=== PATIENT | male | born 1945 | race African-American/Black ===

== ENCOUNTER 2017-04-30 21:42 | Inpatient (IN) | payer MEDICARE, OTHER ==
[~2017-04-30] VITALS: Ht 167.6 cm; Wt 66.3 kg
[2017-04-30 23:45] VITALS: BP 109/56
[2017-05-01] VITALS (27 sets, daily range): BP systolic 92–155; BP diastolic 31–70
[2017-05-01 01:28] LABS: CREATININE 10.6 mg/dL (0.7-1.3); GFR 5.8; POTASSIUM 5.4 mmol/L (3.5-5.1)
[2017-05-01] MEDS ORDERED: ONDANSETRON PF 4 MG/2 ML VIAL. IV PRN (01:30)
[2017-05-01] MEDS ORDERED: SODIUM BICARBONATE VIAL 150 MEQ in IV STERILE WATER 1,000 ML IV SCH (01:30)
[2017-05-01] MEDS ORDERED: FUROSEMIDE 40 MG/4 ML VIAL. IVP ONE (01:30)
[2017-05-01 07:52] LABS: BASO # 0.1 x10^3/uL (0.0-0.2); BASO % 1 % (0-3); EOS % 3 % (0-3); HEMATOCRIT 25.9 % (39.0-53.0); HEMOGLOBIN 8.8 g/dL (13.0-17.5); LYMPH % 18 % (24-48); MEAN CORPUSCULAR HEMOGLOBIN 29 pg (25-35); MEAN CORPUSCULAR HGB CONC 34 g/dL (31-37); MEAN CORPUSCULAR VOLUME 87 fL (79-100); MONO % 9 % (0-9); NEUT % 68 % (31-73); PLATELET COUNT 165 x10^3/uL (140-400); RED BLOOD COUNT 2.98 x10^6/uL (4.30-5.70); RED CELL DISTRIBUTION WIDTH 15.5 % (11.5-14.5); WHITE BLOOD COUNT 5.7 x10^3/uL (4.0-11.0)
[2017-05-01] MEDS ORDERED: ACETAMINOPHEN 500 MG TABLET PO PRN (08:00)
[2017-05-01 08:18] LABS: ALBUMIN/GLOBULIN RATIO 0.6 (1.0-1.7); CALCIUM 8.5 mg/dL (8.5-10.1); CREATININE 9.4 mg/dL (0.7-1.3); GFR 6.7; POTASSIUM 4.7 mmol/L (3.5-5.1); TOTAL BILIRUBIN 0.4 mg/dL (0.2-1.0)
--- NOTE | 2017-05-01 10:50 | PDOC1 ---
History and Physical Date of Admission Date of Admission DATE: 05/01/17 TIME: 10:40 Identification/Chief Complaint Chief Complaint sent from [facility] of abN labs Problems: Source Source: Caregiver, Chart review, Patient History of Present Illness History of Present Illness 72 y./o AA male, not the best historian, transferred from [place] for abN labs , namely creat of 11 , low bicacrb and K 6,.1. Pt does not complain of any sxs , nobody else at bedside, possibly had some EKG changes? got temporizing measures for the hyperkalemia at [place], Renal called in, got bicarb gtt, etc, insulin, etc kayexylate and di have signif BM overnight, So far good UOP this AM 250cc AM shift (until 9Am), K 5.4, creat 10. Seems he answered yes to me if i asked him re HD if needed, Looking at records from [place], lots of medical hx including A fib, CAD, HTN, CHF, dyslipidemia, CKD< stroke, Lives at home alone initially he says, then mentions his helps him, Past Medical History Cardiovascular: AFIB, CAD, CHF, HTN, [place] Pulmonary: Bronchitis CENTRAL NERVOUS SYSTEM: CVA, Dementia Heme/Onc: Anemia NOS Past Surgical History Past Surgical History: Other (indwelling pacer) Family History Family History: Family History Unknown Social History ALCOHOL: none Drugs: None Current Medications Current Medications Current Medications Furosemide (Lasix) 40 mg 1X ONCE IVP Last administered on 05/01/17 02:19; Start 05/01/17 at 01:30; Stop 05/01/17 at 01:31; Status DC Ondansetron HCl (Zofran) 4 mg PRN Q6HRS PRN IV NAUSEA/VOMITING; Start 05/01/17 at 01:30 Morphine Sulfate 2 mg PRN Q2HR PRN IV PAIN; Start 05/01/17 at 01:30 Sodium Bicarbonate 150 meq/Sterile Water 1,150 ml @ 125 mls/hr Q9H12M IV Last administered on 05/01/17 02:28; Start 05/01/17 at 01:30 Acetaminophen/ Hydrocodone Bitart (Lortab 5/325) 1 tab PRN Q4HRS PRN PO PAIN; Start 05/01/17 at 08:00 Acetaminophen (Tylenol) 500 mg PRN Q6HRS PRN PO MILD PAIN / TEMP; Start at 08:00 Allergies Allergies: Coded Allergies: No Known Drug Allergies (Unverified , 05/01/17) ROS Review of System limited - very poor historian Physical Exam General: Alert, Oriented X3, Cooperative, No acute distress HEENT: Atraumatic, PERRLA Lungs: Normal air movement Heart: no thrills, no rubs, no gallops, no murmurs Cardiovascular: S1, S2 Breasts: Normal, Rt breast nml w/o mass, Lt breast nml w/o mass, Nipples normal Abdomen: Normal bowel sounds, Soft, No tenderness, No hepatosplenomegaly, No masses Male Genitals Exam: normal genitalia, normal prostate Extremities: No clubbing, No cyanosis, No edema, Normal pulses, No tenderness/ swelling Skin: No rashes, No breakdown, No significant lesion Neuro: Normal gait, Normal speech, Strength at 5/5 X4 ext, Normal tone, Sensation intact, Cranial nerves 3-12 NL, Reflexes 2+, Other (slow speech, takes long time to speak) Psych/Mental Status: Mental status NL, Mood NL Vitals Vitals Vital Signs Date Time Temp Pulse Resp B/P (MAP) Pulse Ox O2 Delivery O2 Flow Rate FiO2 05/01/17 10:00 62 22 125/59 (81) 98 Room Air 05/01/17 08:00 98.6 98.6 Labs Labs Laboratory Tests Test 05/01/17 01:10 05/01/17 07:46 Sodium Level 141 mmol/L (136-145) 143 mmol/L (136-145) Potassium Level 5.4 mmol/L (3.5-5.1) 4.7 mmol/L (3.5-5.1) Chloride Level 101 mmol/L (98-107) 101 mmol/L (98-107) Carbon Dioxide Level 26 mmol/L (21-32) 30 mmol/L (21-32) Anion Gap 14 (6-14) 12 (6-14) Blood Urea Nitrogen 194 mg/dL (8-26) 182 mg/dL (8-26) Creatinine 10.6 mg/dL (0.7-1.3) 9.4 mg/dL (0.7-1.3) Estimated GFR (Cockcroft-Gault) 5.8 6.7 Glucose Level 87 mg/dL (70-99) 90 mg/dL (70-99) Calcium Level 9.0 mg/dL (8.5-10.1) 8.5 mg/dL (8.5-10.1) White Blood Count 5.7 x10^3/uL (4.0-11.0) Red Blood Count 2.98 x10^6/uL (4.30-5.70) Hemoglobin 8.8 g/dL (13.0-17.5) Hematocrit 25.9 % (39.0-53.0) Mean Corpuscular Volume 87 fL (79-100) Mean Corpuscular Hemoglobin 29 pg (25-35) Mean Corpuscular Hemoglobin Concent 34 g/dL (31-37) Red Cell Distribution Width 15.5 % (11.5-14.5) Platelet Count 165 x10^3/uL (140-400) Neutrophils (%) (Auto) 68 % (31-73) Lymphocytes (%) (Auto) 18 % (24-48) Monocytes (%) (Auto) 9 % (0-9) Eosinophils (%) (Auto) 3 % (0-3) Basophils (%) (Auto) 1 % (0-3) Neutrophils # (Auto) 3.9 x10^3uL (1.8-7.7) Lymphocytes # (Auto) 1.0 x10^3/uL (1.0-4.8) Monocytes # (Auto) 0.5 x10^3/uL (0.0-1.1) Eosinophils # (Auto) 0.2 x10^3/uL (0.0-0.7) Basophils # (Auto) 0.1 x10^3/uL (0.0-0.2) BUN/Creatinine Ratio 19 (6-20) Total Bilirubin 0.4 mg/dL (0.2-1.0) Aspartate Amino Transf (AST/SGOT) 13 U/L (15-37) Alanine Aminotransferase (ALT/SGPT) 16 U/L (16-63) Alkaline Phosphatase 74 U/L (46-116) Total Protein 8.0 g/dL (6.4-8.2) Albumin 3.0 g/dL (3.4-5.0) Albumin/Globulin Ratio 0.6 (1.0-1.7) Laboratory Tests Test 05/01/17 01:10 05/01/17 07:46 Sodium Level 141 mmol/L (136-145) 143 mmol/L (136-145) Potassium Level 5.4 mmol/L (3.5-5.1) 4.7 mmol/L (3.5-5.1) Chloride Level 101 mmol/L (98-107) 101 mmol/L (98-107) Carbon Dioxide Level 26 mmol/L (21-32) 30 mmol/L (21-32) Anion Gap 14 (6-14) 12 (6-14) Blood Urea Nitrogen 194 mg/dL (8-26) 182 mg/dL (8-26) Creatinine 10.6 mg/dL (0.7-1.3) 9.4 mg/dL (0.7-1.3) Estimated GFR (Cockcroft-Gault) 5.8 6.7 Glucose Level 87 mg/dL (70-99) 90 mg/dL (70-99) Calcium Level 9.0 mg/dL (8.5-10.1) 8.5 mg/dL (8.5-10.1) White Blood Count 5.7 x10^3/uL (4.0-11.0) Red Blood Count 2.98 x10^6/uL (4.30-5.70) Hemoglobin 8.8 g/dL (13.0-17.5) Hematocrit 25.9 % (39.0-53.0) Mean Corpuscular Volume 87 fL (79-100) Mean Corpuscular Hemoglobin 29 pg (25-35) Mean Corpuscular Hemoglobin Concent 34 g/dL (31-37) Red Cell Distribution Width 15.5 % (11.5-14.5) Platelet Count 165 x10^3/uL (140-400) Neutrophils (%) (Auto) 68 % (31-73) Lymphocytes (%) (Auto) 18 % (24-48) Monocytes (%) (Auto) 9 % (0-9) Eosinophils (%) (Auto) 3 % (0-3) Basophils (%) (Auto) 1 % (0-3) Neutrophils # (Auto) 3.9 x10^3uL (1.8-7.7) Lymphocytes # (Auto) 1.0 x10^3/uL (1.0-4.8) Monocytes # (Auto) 0.5 x10^3/uL (0.0-1.1) Eosinophils # (Auto) 0.2 x10^3/uL (0.0-0.7) Basophils # (Auto) 0.1 x10^3/uL (0.0-0.2) BUN/Creatinine Ratio 19 (6-20) Total Bilirubin 0.4 mg/dL (0.2-1.0) Aspartate Amino Transf (AST/SGOT) 13 U/L (15-37) Alanine Aminotransferase (ALT/SGPT) 16 U/L (16-63) Alkaline Phosphatase 74 U/L (46-116) Total Protein 8.0 g/dL (6.4-8.2) Albumin 3.0 g/dL (3.4-5.0) Albumin/Globulin Ratio 0.6 (1.0-1.7) VTE Prophylaxis Ordered VTE Prophylaxis Devices: Yes VTE Pharmacological Prophylaxi: Yes Assessment/Plan Assessment/Plan 1. RINKU with CKD stage 5 2. AOCD 3. Metabolic acidosis with hyperkalemia 4 Hyperkalemia with EKG changes 5. Indwelling pace maker 6. Possible dementia, undiagnosed 7. 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
[2017-05-01 12:18] LABS: HEMATOCRIT 26.2 % (39.0-53.0); HEMOGLOBIN 8.7 g/dL (13.0-17.5); RED BLOOD COUNT 3.02 x10^6/uL (4.30-5.70); WHITE BLOOD COUNT 5.5 x10^3/uL (4.0-11.0)
[2017-05-01 12:33] LABS: CALCIUM 8.4 mg/dL (8.5-10.1); CREATININE 8.9 mg/dL (0.7-1.3); GFR 7.1; MAGNESIUM 2.8 mg/dL (1.8-2.4); PHOSPHORUS 6.7 mg/dL (2.6-4.7); POTASSIUM 4.4 mmol/L (3.5-5.1)
--- NOTE | 2017-05-01 12:40 | RAD ---
Renal ultrasound, 05/01/2017: History: Acute renal insufficiency The right kidney measures 9.0 cm in length while the left kidney measures 9.7 cm. There is mild renal cortical scarring. There is no evidence of hydronephrosis or a renal mass. The renal parenchymal echogenicity is within normal limits. A Kay catheter is present within the partially filled urinary bladder. IMPRESSION: 1. Mild renal cortical scarring. 2. No evidence of renal obstruction.
[2017-05-01] MEDS ORDERED: HEPARIN for IV BOLUS 10,000 UNIT/10 ML VIAL. ONE (13:21)
[2017-05-01] MEDS ORDERED: LIDOCAINE 1% / SOD BICARB 8.4% 20 ML VIAL. IJ ONE ×2 (13:22→13:30)
--- NOTE | 2017-05-01 13:27 | PDOC2 ---
CONSULT Date of Consult Date of Consult DATE: 05/01/17 TIME: 13:19 Reason for Consult Reason for Consult: RINKU AND HIGH K Referring Physician Referring Physician: SANTIAGO Identification/Chief Complaint Chief Complaint CONFUSED Problems: Source Source: Chart review History of Present Illness Reason for Visit: THIS IS A 72 YR OLD HERE FOR EVALUATION OF ABNORMAL LABS. WAS TAKEN TO [facility]. PT NOT COMPLAINING OF ANYTHING BUT CONFUSED AND NOT ABLE TO GIVEN ANY HX ALTHOUGH ALERT. LABS SHOWED RINKU WITH BUN OF ABOUT 200 AND CR OF ABOUT 11.0. K WAS ELEVATED TO ABOUT 7.0. DISCUSSED THE CASE WITH THE ER PHYSICIAN THERE AND SUGGESTED TEMPORIZING MEASURES FOR HIS K TO INCLUDE D50 AND INSULIN ALONG WITH CALCIUM. ALSO SUGGESTED PLACING SANCHEZ AND STARTING A HCO3 GTT AND THEN TRANSFER TO [facility]. HERE K WAS DOWN TO 6.1 AND HE CONTINUED TO REMAIN NON OLIGURIC. UA FROM [facility] POS FOR UTI BUT NO PROTEIN AND SP GR IS 1.010. APPARENTLY A YEAR AGO CR IN THE 1.5-1.8 RANGE PER ER DOCTOR AT [facility] Past Medical History Cardiovascular: AFIB, CAD, CHF, HTN, [place] Pulmonary: Bronchitis CENTRAL NERVOUS SYSTEM: CVA, Dementia Heme/Onc: Anemia NOS Renal/: Chronic renal insuff Past Surgical History Past Surgical History: Other (indwelling pacer) Family History Family History: Family History Unknown Social History ALCOHOL: none Drugs: None Current Medications Current Medications Current Medications Furosemide (Lasix) 40 mg 1X ONCE IVP Last administered on 05/01/17 02:19; Start 05/01/17 at 01:30; Stop 05/01/17 at 01:31; Status DC Ondansetron HCl (Zofran) 4 mg PRN Q6HRS PRN IV NAUSEA/VOMITING; Start 05/01/17 at 01:30 Morphine Sulfate 2 mg PRN Q2HR PRN IV PAIN; Start 05/01/17 at 01:30 Sodium Bicarbonate 150 meq/Sterile Water 1,150 ml @ 125 mls/hr Q9H12M IV Last administered on 05/01/17 02:28; Start 05/01/17 at 01:30 Acetaminophen/ Hydrocodone Bitart (Lortab 5/325) 1 tab PRN Q4HRS PRN PO PAIN; Start 05/01/17 at 08:00 Acetaminophen (Tylenol) 500 mg PRN Q6HRS PRN PO MILD PAIN / TEMP; Start at 08:00 Allergies Allergies: Coded Allergies: No Known Drug Allergies (Unverified , 05/01/17) ROS Review of System UNABLE TO OBTAIN Physical Exam General: Alert, Cooperative HEENT: Atraumatic, PERRLA, Other (DRY MUCOSA) Lungs: Clear to auscultation, Normal air movement Heart: Regular rate Abdomen: Soft, No tenderness Extremities: No clubbing, No edema Skin: No rashes, No significant lesion Neuro: Other (CONFUSED) MUSCULOSKELETAL: No joint tenderness, No deformity, No swelling, Other ( DIFFUSE ATROPHY) Vitals VITALS Vital Signs Date Time Temp Pulse Resp B/P (MAP) Pulse Ox O2 Delivery O2 Flow Rate FiO2 05/01/17 13:00 98.0 61 20 115/31 (59) 97 Room Air 98.0 Labs Labs Laboratory Tests Test 05/01/17 01:10 05/01/17 07:46 05/01/17 12:05 Sodium Level 141 mmol/L (136-145) 143 mmol/L (136-145) 142 mmol/L (136-145) Potassium Level 5.4 mmol/L (3.5-5.1) 4.7 mmol/L (3.5-5.1) 4.4 mmol/L (3.5-5.1) Chloride Level 101 mmol/L (98-107) 101 mmol/L (98-107) 100 mmol/L (98-107) Carbon Dioxide Level 26 mmol/L (21-32) 30 mmol/L (21-32) 34 mmol/L (21-32) Anion Gap 14 (6-14) 12 (6-14) 8 (6-14) Blood Urea Nitrogen 194 mg/dL (8-26) 182 mg/dL (8-26) 180 mg/dL (8-26) Creatinine 10.6 mg/dL (0.7-1.3) 9.4 mg/dL (0.7-1.3) 8.9 mg/dL (0.7-1.3) Estimated GFR (Cockcroft-Gault) 5.8 6.7 7.1 Glucose Level 87 mg/dL (70-99) 90 mg/dL (70-99) 141 mg/dL (70-99) Calcium Level 9.0 mg/dL (8.5-10.1) 8.5 mg/dL (8.5-10.1) 8.4 mg/dL (8.5-10.1) White Blood Count 5.7 x10^3/uL (4.0-11.0) 5.5 x10^3/uL (4.0-11.0) Red Blood Count 2.98 x10^6/uL (4.30-5.70) 3.02 x10^6/uL (4.30-5.70) Hemoglobin 8.8 g/dL (13.0-17.5) 8.7 g/dL (13.0-17.5) Hematocrit 25.9 % (39.0-53.0) 26.2 % (39.0-53.0) Mean Corpuscular Volume 87 fL (79-100) 87 fL (79-100) Mean Corpuscular Hemoglobin 29 pg (25-35) 29 pg (25-35) Mean Corpuscular Hemoglobin Concent 34 g/dL (31-37) 33 g/dL (31-37) Red Cell Distribution Width 15.5 % (11.5-14.5) 15.0 % (11.5-14.5) Platelet Count 165 x10^3/uL (140-400) 157 x10^3/uL (140-400) Neutrophils (%) (Auto) 68 % (31-73) Lymphocytes (%) (Auto) 18 % (24-48) Monocytes (%) (Auto) 9 % (0-9) Eosinophils (%) (Auto) 3 % (0-3) Basophils (%) (Auto) 1 % (0-3) Neutrophils # (Auto) 3.9 x10^3uL (1.8-7.7) Lymphocytes # (Auto) 1.0 x10^3/uL (1.0-4.8) Monocytes # (Auto) 0.5 x10^3/uL (0.0-1.1) Eosinophils # (Auto) 0.2 x10^3/uL (0.0-0.7) Basophils # (Auto) 0.1 x10^3/uL (0.0-0.2) BUN/Creatinine Ratio 19 (6-20) Total Bilirubin 0.4 mg/dL (0.2-1.0) Aspartate Amino Transf (AST/SGOT) 13 U/L (15-37) Alanine Aminotransferase (ALT/SGPT) 16 U/L (16-63) Alkaline Phosphatase 74 U/L (46-116) Total Protein 8.0 g/dL (6.4-8.2) Albumin 3.0 g/dL (3.4-5.0) Albumin/Globulin Ratio 0.6 (1.0-1.7) Phosphorus Level 6.7 mg/dL (2.6-4.7) Magnesium Level 2.8 mg/dL (1.8-2.4) Thyroid Stimulating Hormone (TSH) 0.665 uIU/mL (0.358-3.74) Laboratory Tests Test 05/01/17 01:10 05/01/17 07:46 05/01/17 12:05 Sodium Level 141 mmol/L (136-145) 143 mmol/L (136-145) 142 mmol/L (136-145) Potassium Level 5.4 mmol/L (3.5-5.1) 4.7 mmol/L (3.5-5.1) 4.4 mmol/L (3.5-5.1) Chloride Level 101 mmol/L (98-107) 101 mmol/L (98-107) 100 mmol/L (98-107) Carbon Dioxide Level 26 mmol/L (21-32) 30 mmol/L (21-32) 34 mmol/L (21-32) Anion Gap 14 (6-14) 12 (6-14) 8 (6-14) Blood Urea Nitrogen 194 mg/dL (8-26) 182 mg/dL (8-26) 180 mg/dL (8-26) Creatinine 10.6 mg/dL (0.7-1.3) 9.4 mg/dL (0.7-1.3) 8.9 mg/dL (0.7-1.3) Estimated GFR (Cockcroft-Gault) 5.8 6.7 7.1 Glucose Level 87 mg/dL (70-99) 90 mg/dL (70-99) 141 mg/dL (70-99) Calcium Level 9.0 mg/dL (8.5-10.1) 8.5 mg/dL (8.5-10.1) 8.4 mg/dL (8.5-10.1) White Blood Count 5.7 x10^3/uL (4.0-11.0) 5.5 x10^3/uL (4.0-11.0) Red Blood Count 2.98 x10^6/uL (4.30-5.70) 3.02 x10^6/uL (4.30-5.70) Hemoglobin 8.8 g/dL (13.0-17.5) 8.7 g/dL (13.0-17.5) Hematocrit 25.9 % (39.0-53.0) 26.2 % (39.0-53.0) Mean Corpuscular Volume 87 fL (79-100) 87 fL (79-100) Mean Corpuscular Hemoglobin 29 pg (25-35) 29 pg (25-35) Mean Corpuscular Hemoglobin Concent 34 g/dL (31-37) 33 g/dL (31-37) Red Cell Distribution Width 15.5 % (11.5-14.5) 15.0 % (11.5-14.5) Platelet Count 165 x10^3/uL (140-400) 157 x10^3/uL (140-400) Neutrophils (%) (Auto) 68 % (31-73) Lymphocytes (%) (Auto) 18 % (24-48) Monocytes (%) (Auto) 9 % (0-9) Eosinophils (%) (Auto) 3 % (0-3) Basophils (%) (Auto) 1 % (0-3) Neutrophils # (Auto) 3.9 x10^3uL (1.8-7.7) Lymphocytes # (Auto) 1.0 x10^3/uL (1.0-4.8) Monocytes # (Auto) 0.5 x10^3/uL (0.0-1.1) Eosinophils # (Auto) 0.2 x10^3/uL (0.0-0.7) Basophils # (Auto) 0.1 x10^3/uL (0.0-0.2) BUN/Creatinine Ratio 19 (6-20) Total Bilirubin 0.4 mg/dL (0.2-1.0) Aspartate Amino Transf (AST/SGOT) 13 U/L (15-37) Alanine Aminotransferase (ALT/SGPT) 16 U/L (16-63) Alkaline Phosphatase 74 U/L (46-116) Total Protein 8.0 g/dL (6.4-8.2) Albumin 3.0 g/dL (3.4-5.0) Albumin/Globulin Ratio 0.6 (1.0-1.7) Phosphorus Level 6.7 mg/dL (2.6-4.7) Magnesium Level 2.8 mg/dL (1.8-2.4) Thyroid Stimulating Hormone (TSH) 0.665 uIU/mL (0.358-3.74) Assessment/Plan Assessment/Plan IMP RINKU-NON OLIGURIC PROB UREMIA DEHYDRATION PLAN RENAL SONO SANCHEZ PLACED CONT WITH IVF'S WILL HAVE IR PLACE TEMP HD CATHETER WILL START HD WITH LOW QB AND NO UF ATTEMPTED TO CONTACT NEXT OF KIN OR WITH NO ONCE ANSWERING THE PHONE NO EVIDENCE OF ANY NEPHRITIS-NO HTN AND NO PROTEIN IN THE URINE ANTIBIOTICS FOR UTI CHANGE IVF'S TO CHULA LOERA MD May 01, 2017 13:27
[2017-05-01] MEDS: IV NORMAL SALINE 1000ML BAG 1,000 ML IV SCH (14:34)
--- NOTE | 2017-05-01 14:36 | RAD ---
Portable chest, 05/01/2017: History: Check dialysis catheter placement No previous chest radiographs are available at this time for comparison purposes. A left-sided transvenous pacemaker is in place with 3 leads extending into the heart. A right jugular dialysis type catheter extends into the superior vena cava. The left ventricle is mildly prominent. The pulmonary vascularity is normal. No pulmonary infiltrate are seen. There is no evidence of pleural fluid or pneumothorax. A right shoulder prosthesis is in place. IMPRESSION: 1. The right jugular dialysis type catheter extends into the superior vena cava. 2. No acute cardiopulmonary abnormality is detected.
[2017-05-01] MEDS ORDERED: IV NORMAL SALINE 1000ML BAG 1,000 ML IV PRN ×2 (18:50)
[2017-05-01] MEDS ORDERED: 0.9 % SODIUM CHLORIDE 10 ML DISP.SYRIN. IV PRN ×2 (19:00)
[2017-05-01] MEDS ORDERED: DIALYSIS PATIENT. MC PRN ×2 (19:00)
[2017-05-01] MEDS ORDERED: LIDO700A39 TP (20:32)
[2017-05-01] MEDS ORDERED: LISI-338 PO (20:32)
[2017-05-01] MEDS ORDERED: APIX5TAB PO (20:32)
[2017-05-01] MEDS ORDERED: TRAM50TA PO (20:34)
[2017-05-01] MEDS ORDERED: SOTA80TA48 PO (20:34)
[2017-05-01] MEDS ORDERED: CARV12.52 PO (20:36)
[2017-05-01] MEDS ORDERED: TORS20TA2 PO (20:37)
[2017-05-01] MEDS ORDERED: ATOR20TA58 PO (20:38)
[2017-05-01] MEDS ORDERED: TIZA4TAB PO (20:39)
[2017-05-01] MEDS ORDERED: SPIR25TA3 PO (20:39)
[2017-05-01] MEDS: MORPHINE SULFATE 2 MG/ML DISP.SYRIN. IV PRN (22:25)
[2017-05-02] VITALS (15 sets, daily range): BP systolic 99–121; BP diastolic 47–69
--- NOTE | 2017-05-02 00:07 | ACF ---
Admission Forms Criteria RENAL FAILURE, CHRONIC Clinical Indications for Admission to Inpatient Care (Place 'X' for any and all applicable criteria): Admission is indicated for ANY ONE of the following (1)(2)(3)(4)(5): [X]I. Inpatient admission required rather than observation care (Use Renal Failure, Chronic: Observation Care Criteria as appropriate) because of ANY ONE of the following: [ ]a) Volume overload or uremic symptoms (eg, clinically significant pulmonary edema, hypertension, pericarditis, acidosis) too severe for, or not responsive (eg, for over 24 hours) to emergency department or observation care dialysis or treatment regimen (11) [ ]b) Hemodynamic instability that is severe or persistent [ ]c) Respiratory distress that is severe or persistent (11) [X]d) Clinically significant electrolyte abnormality that requires inpatient care (eg,hyperkalemia with severe ECG findings)[B] [ ]e) Supplement O2 or respiratory therapy for over 24hrs that is performable only in acute inpatient setting [ ]f) Continuous IV infusion of anticoagulation, platelet inhibitor, vasoactive, or Antiarrhythmic medication (15), [ ]g) Pulmonary artery catheter monitoring [ ]h) Temporary pacemaker placement [ ]i) Emergent pericardiocentesis [ ]j) Other condition, treatment or monitoring requiring inpatient admission [ ]II. Unexplained syncope [A] [ ]III. Recurrent seizures [ ]IV. Severe infections not treatable in outpatient setting (eg, peritonitis)(9 ) [ ]V. Cardiac arrhythmias of immediate concern [ ]. Encephalopathy [ ]VII.Bleeding abnormalities (eg, platelet dysfunction) with active (eg, gastrointestinal) bleeding Extended stay beyond goal length of stay may be needed for (3)(4)(35)(36): [ ]a) Continuing uremic complications [ ]b) Comorbidities or complications The original [facility] content created by [employer] has been revised. The portions of the content which have been revised are identified through the use of italic text or in bold, and [facility] has neither reviewed nor approved the modified material. All other unmodified content is copyright [facility]. Please see references footnoted in the original [facility] edition 2016 Admission Criteria Met?: Pending TARIQ LOZANO May 02, 2017 00:07 TIAGO HENDERSON MD May 05, 2017 08:48
[2017-05-02] MEDS: IV NORMAL SALINE 1000ML BAG 1,000 ML IV SCH ×3 (00:56→20:00)
[2017-05-02] MEDS: MORPHINE SULFATE 2 MG/ML DISP.SYRIN. IV PRN (00:56)
[2017-05-02 03:51] LABS: CALCIUM 8.4 mg/dL (8.5-10.1); CREATININE 4.1 mg/dL (0.7-1.3); GFR 17.4; PHOSPHORUS 4.3 mg/dL (2.6-4.7); POTASSIUM 4.1 mmol/L (3.5-5.1)
[2017-05-02 04:03] LABS: BILIRUBIN,URINE NEGATIVE (NEG); GLUCOSE,URINE NEGATIVE (NEG); NITRITE,URINE NEGATIVE (NEG); PROTEIN,URINE 100 mg/dL (NEG-TRACE); UROBILINOGEN,URINE 0.2 mg/dL (0.2 mg/dL)
[2017-05-02 04:09] LABS: BACTERIA,URINE 0 /HPF (0-FEW); RBC,URINE TNTC /HPF (0-2); SQUAMOUS EPITHELIAL CELL,UR OCC /LPF
[2017-05-02] MEDS: SOTALOL 80 MG TABLET. PO SCH (09:00)
[2017-05-02] MEDS: CARVEDILOL 12.5 MG TABLET. PO SCH (09:00)
--- NOTE | 2017-05-02 09:27 | PDOC ---
Renal-Progress Notes Subjective Notes Notes FEELING A LITTLE BIT BETTER, LESS CONFUSED History of Present Illness Hx of present illness STABLE Vitals Vitals Vital Signs Date Time Temp Pulse Resp B/P (MAP) Pulse Ox O2 Delivery O2 Flow Rate FiO2 05/02/17 09:00 60 13 120/69 (86) 100 Room Air 05/02/17 08:00 98.6 98.6 Weight Weight [ ] I.O. Intake and Output Intake and Output 05/02/17 07:00 Intake Total 2778 ml Output Total 1475 ml Balance 1303 ml Intake Oral 586 ml IV Total 2192 ml Output Urine Total 1475 ml Labs Labs Laboratory Tests Test 05/01/17 12:05 05/02/17 03:04 05/02/17 03:20 White Blood Count 5.5 x10^3/uL (4.0-11.0) Red Blood Count 3.02 x10^6/uL (4.30-5.70) Hemoglobin 8.7 g/dL (13.0-17.5) Hematocrit 26.2 % (39.0-53.0) Mean Corpuscular Volume 87 fL (79-100) Mean Corpuscular Hemoglobin 29 pg (25-35) Mean Corpuscular Hemoglobin Concent 33 g/dL (31-37) Red Cell Distribution Width 15.0 % (11.5-14.5) Platelet Count 157 x10^3/uL (140-400) Erythrocyte Sedimentation Rate 88 (0-15) Sodium Level 142 mmol/L (136-145) 140 mmol/L (136-145) Potassium Level 4.4 mmol/L (3.5-5.1) 4.1 mmol/L (3.5-5.1) Chloride Level 100 mmol/L (98-107) 103 mmol/L (98-107) Carbon Dioxide Level 34 mmol/L (21-32) 29 mmol/L (21-32) Anion Gap 8 (6-14) 8 (6-14) Blood Urea Nitrogen 180 mg/dL (8-26) 59 mg/dL (8-26) Creatinine 8.9 mg/dL (0.7-1.3) 4.1 mg/dL (0.7-1.3) Estimated GFR (Cockcroft-Gault) 7.1 17.4 Glucose Level 141 mg/dL (70-99) 98 mg/dL (70-99) Calcium Level 8.4 mg/dL (8.5-10.1) 8.4 mg/dL (8.5-10.1) Phosphorus Level 6.7 mg/dL (2.6-4.7) 4.3 mg/dL (2.6-4.7) Magnesium Level 2.8 mg/dL (1.8-2.4) Thyroid Stimulating Hormone (TSH) 0.665 uIU/mL (0.358-3.74) Urine Collection Type Unknown Urine Color Yellow Urine Clarity Clear Urine pH 6.0 Urine Specific [place] 1.010 Urine Protein 100 mg/dL (NEG-TRACE) Urine Glucose (UA) Negative mg/dL (NEG) Urine Ketones (Stick) Negative mg/dL (NEG) Urine Blood Large (NEG) Urine Nitrite Negative (NEG) Urine Bilirubin Negative (NEG) Urine Urobilinogen Dipstick 0.2 mg/dL (0.2 mg/dL) Urine Leukocyte Esterase Moderate (NEG) Urine RBC Tntc /HPF (0-2) Urine WBC 11-20 /HPF (0-4) Urine Squamous Epithelial Cells Occ /LPF Urine Bacteria 0 /HPF (0-FEW) Urine Mucus Slight /LPF Uric Acid 5.0 mg/dL (3.5-7.2) Creatine Kinase 95 U/L (39-308) Review of Systems Constitutional: yes: weakness, alert Ears/Nose/Throat: Yes: no symptom reported Eyes: Yes: no symptom reported Pulmonary: Yes no symptom reported Cardiovascular: Yes no symptom reported Gastrointestional: Yes: nausea Musculoskeletal: Yes: muscle stiffness Skin: Yes no symptom reported Physical Exam General Appearance: no apparent distress Skin: warm Respiratory: bilateral CTA Heart: S1S2 Abdomen: soft, bowel sounds present Extremities: pulses present Neurology: alert Assessment Assessment IMP RINKU-MUCH IMPROVED AND NON OLIGURIC DEMENTIA PROBABLE MILD UREMIA DEHYDRATION UTI PLAN RENAL SONO IS NEG BELIEVE RINKU DUE TO SEVERE DEHYDRATION NO EVIDENCE OF NEPHRITIS ANTIBIOTICS HD TODAY NO UF WILL PLAN FOR NO HD OVER THE WEEKEND SUSPECT HE WILL RECOVER LABS IN AM CHULA EARLY MD May 02, 2017 09:27
[2017-05-02] MEDS ORDERED: FUROSEMIDE 20 MG/2 ML VIAL. IVP ONE (09:30)
[2017-05-02] MEDS ORDERED: methylPREDNISolone SOD SUCC PF 125 MG/2 ML VIAL. IV ONE (09:30)
--- NOTE | 2017-05-02 09:33 | RAD ---
Portable chest, 05/02/2017: History: Respiratory distress Comparison is made to yesterday's study. A right jugular dialysis type catheter extends into the superior vena cava. A left-sided transvenous pacemaker is again noted. The heart size is unchanged. The pulmonary vascularity is normal. No pulmonary infiltrates are seen. There is no evidence of pleural fluid or pneumothorax. IMPRESSION: No acute cardiopulmonary abnormality is detected.
--- NOTE | 2017-05-02 10:14 | PDOC ---
PROGRESS NOTES Chief Complaint Chief Complaint 1. RINKU with CKD stage 5 2. AOCD 3. Metabolic acidosis with hyperkalemia better 4 Hyperkalemia with EKG changes resolved 5. Indwelling pace maker 6. Possible dementia, undiagnosed 7. HTN, CAD, CHF, Dsylipidemia, atrial fib, chronic stable History of Present Illness History of Present Illness Seen in ICU NUmbers better! CReat down to 4 from 11 Good UO VS good NO complaints, though has some element of cognitive impairment LAbs: K 4.1, NA 140 HGb 8.8, WBC PLatelets 157 ESR 88 PLAN: Ok to t.o ICU Will need SNU SW consult PT/OT Dw pt Renal panel again tawnya Avoid nephrotoxins HOld aldactone, lisinopril, torsemide home meds Vitals Vitals Vital Signs Date Time Temp Pulse Resp B/P (MAP) Pulse Ox O2 Delivery O2 Flow Rate FiO2 05/02/17 09:00 60 13 120/69 (86) 100 Room Air 05/02/17 08:00 98.6 98.6 Physical Exam General: Alert, Cooperative Heart: Regular rate Abdomen: Soft, No tenderness Extremities: No clubbing, No edema Skin: No rashes, No significant lesion Labs LABS Laboratory Tests Test 05/01/17 12:05 05/02/17 03:04 05/02/17 03:20 White Blood Count 5.5 x10^3/uL (4.0-11.0) Red Blood Count 3.02 x10^6/uL (4.30-5.70) Hemoglobin 8.7 g/dL (13.0-17.5) Hematocrit 26.2 % (39.0-53.0) Mean Corpuscular Volume 87 fL (79-100) Mean Corpuscular Hemoglobin 29 pg (25-35) Mean Corpuscular Hemoglobin Concent 33 g/dL (31-37) Red Cell Distribution Width 15.0 % (11.5-14.5) Platelet Count 157 x10^3/uL (140-400) Erythrocyte Sedimentation Rate 88 (0-15) Sodium Level 142 mmol/L (136-145) 140 mmol/L (136-145) Potassium Level 4.4 mmol/L (3.5-5.1) 4.1 mmol/L (3.5-5.1) Chloride Level 100 mmol/L (98-107) 103 mmol/L (98-107) Carbon Dioxide Level 34 mmol/L (21-32) 29 mmol/L (21-32) Anion Gap 8 (6-14) 8 (6-14) Blood Urea Nitrogen 180 mg/dL (8-26) 59 mg/dL (8-26) Creatinine 8.9 mg/dL (0.7-1.3) 4.1 mg/dL (0.7-1.3) Estimated GFR (Cockcroft-Gault) 7.1 17.4 Glucose Level 141 mg/dL (70-99) 98 mg/dL (70-99) Calcium Level 8.4 mg/dL (8.5-10.1) 8.4 mg/dL (8.5-10.1) Phosphorus Level 6.7 mg/dL (2.6-4.7) 4.3 mg/dL (2.6-4.7) Magnesium Level 2.8 mg/dL (1.8-2.4) Thyroid Stimulating Hormone (TSH) 0.665 uIU/mL (0.358-3.74) Urine Collection Type Unknown Urine Color Yellow Urine Clarity Clear Urine pH 6.0 Urine Specific Bledsoe 1.010 Urine Protein 100 mg/dL (NEG-TRACE) Urine Glucose (UA) Negative mg/dL (NEG) Urine Ketones (Stick) Negative mg/dL (NEG) Urine Blood Large (NEG) Urine Nitrite Negative (NEG) Urine Bilirubin Negative (NEG) Urine Urobilinogen Dipstick 0.2 mg/dL (0.2 mg/dL) Urine Leukocyte Esterase Moderate (NEG) Urine RBC Tntc /HPF (0-2) Urine WBC 11-20 /HPF (0-4) Urine Squamous Epithelial Cells Occ /LPF Urine Bacteria 0 /HPF (0-FEW) Urine Mucus Slight /LPF Uric Acid 5.0 mg/dL (3.5-7.2) Creatine Kinase 95 U/L (39-308) Review of Systems Review of Systems denies 14 pt reviewed Comment Review of Relevant I have reviewed the following items maranda (where applicable) has been applied. Labs Laboratory Tests Test 05/01/17 00:18 05/01/17 01:10 05/01/17 07:46 05/01/17 12:05 Nasal Screen MRSA (PCR) Negative (Negative) Sodium Level 141 mmol/L (136-145) 143 mmol/L (136-145) 142 mmol/L (136-145) Potassium Level 5.4 mmol/L (3.5-5.1) 4.7 mmol/L (3.5-5.1) 4.4 mmol/L (3.5-5.1) Chloride Level 101 mmol/L (98-107) 101 mmol/L (98-107) 100 mmol/L (98-107) Carbon Dioxide Level 26 mmol/L (21-32) 30 mmol/L (21-32) 34 mmol/L (21-32) Anion Gap 14 (6-14) 12 (6-14) 8 (6-14) Blood Urea Nitrogen 194 mg/dL (8-26) 182 mg/dL (8-26) 180 mg/dL (8-26) Creatinine 10.6 mg/dL (0.7-1.3) 9.4 mg/dL (0.7-1.3) 8.9 mg/dL (0.7-1.3) Estimated GFR (Cockcroft-Gault) 5.8 6.7 7.1 Glucose Level 87 mg/dL (70-99) 90 mg/dL (70-99) 141 mg/dL (70-99) Calcium Level 9.0 mg/dL (8.5-10.1) 8.5 mg/dL (8.5-10.1) 8.4 mg/dL (8.5-10.1) White Blood Count 5.7 x10^3/uL (4.0-11.0) 5.5 x10^3/uL (4.0-11.0) Red Blood Count 2.98 x10^6/uL (4.30-5.70) 3.02 x10^6/uL (4.30-5.70) Hemoglobin 8.8 g/dL (13.0-17.5) 8.7 g/dL (13.0-17.5) Hematocrit 25.9 % (39.0-53.0) 26.2 % (39.0-53.0) Mean Corpuscular Volume 87 fL (79-100) 87 fL (79-100) Mean Corpuscular Hemoglobin 29 pg (25-35) 29 pg (25-35) Mean Corpuscular Hemoglobin Concent 34 g/dL (31-37) 33 g/dL (31-37) Red Cell Distribution Width 15.5 % (11.5-14.5) 15.0 % (11.5-14.5) Platelet Count 165 x10^3/uL (140-400) 157 x10^3/uL (140-400) Neutrophils (%) (Auto) 68 % (31-73) Lymphocytes (%) (Auto) 18 % (24-48) Monocytes (%) (Auto) 9 % (0-9) Eosinophils (%) (Auto) 3 % (0-3) Basophils (%) (Auto) 1 % (0-3) Neutrophils # (Auto) 3.9 x10^3uL (1.8-7.7) Lymphocytes # (Auto) 1.0 x10^3/uL (1.0-4.8) Monocytes # (Auto) 0.5 x10^3/uL (0.0-1.1) Eosinophils # (Auto) 0.2 x10^3/uL (0.0-0.7) Basophils # (Auto) 0.1 x10^3/uL (0.0-0.2) BUN/Creatinine Ratio 19 (6-20) Total Bilirubin 0.4 mg/dL (0.2-1.0) Aspartate Amino Transf (AST/SGOT) 13 U/L (15-37) Alanine Aminotransferase (ALT/SGPT) 16 U/L (16-63) Alkaline Phosphatase 74 U/L (46-116) Total Protein 8.0 g/dL (6.4-8.2) Albumin 3.0 g/dL (3.4-5.0) Albumin/Globulin Ratio 0.6 (1.0-1.7) Erythrocyte Sedimentation Rate 88 (0-15) Phosphorus Level 6.7 mg/dL (2.6-4.7) Magnesium Level 2.8 mg/dL (1.8-2.4) Thyroid Stimulating Hormone (TSH) 0.665 uIU/mL (0.358-3.74) Test 05/02/17 03:04 05/02/17 03:20 Urine Collection Type Unknown Urine Color Yellow Urine Clarity Clear Urine pH 6.0 Urine Specific Bledsoe 1.010 Urine Protein 100 mg/dL (NEG-TRACE) Urine Glucose (UA) Negative mg/dL (NEG) Urine Ketones (Stick) Negative mg/dL (NEG) Urine Blood Large (NEG) Urine Nitrite Negative (NEG) Urine Bilirubin Negative (NEG) Urine Urobilinogen Dipstick 0.2 mg/dL (0.2 mg/dL) Urine Leukocyte Esterase Moderate (NEG) Urine RBC Tntc /HPF (0-2) Urine WBC 11-20 /HPF (0-4) Urine Squamous Epithelial Cells Occ /LPF Urine Bacteria 0 /HPF (0-FEW) Urine Mucus Slight /LPF Sodium Level 140 mmol/L (136-145) Potassium Level 4.1 mmol/L (3.5-5.1) Chloride Level 103 mmol/L (98-107) Carbon Dioxide Level 29 mmol/L (21-32) Anion Gap 8 (6-14) Blood Urea Nitrogen 59 mg/dL (8-26) Creatinine 4.1 mg/dL (0.7-1.3) Estimated GFR (Cockcroft-Gault) 17.4 Glucose Level 98 mg/dL (70-99) Uric Acid 5.0 mg/dL (3.5-7.2) Calcium Level 8.4 mg/dL (8.5-10.1) Phosphorus Level 4.3 mg/dL (2.6-4.7) Creatine Kinase 95 U/L (39-308) Laboratory Tests Test 05/01/17 12:05 05/02/17 03:04 05/02/17 03:20 White Blood Count 5.5 x10^3/uL (4.0-11.0) Red Blood Count 3.02 x10^6/uL (4.30-5.70) Hemoglobin 8.7 g/dL (13.0-17.5) Hematocrit 26.2 % (39.0-53.0) Mean Corpuscular Volume 87 fL (79-100) Mean Corpuscular Hemoglobin 29 pg (25-35) Mean Corpuscular Hemoglobin Concent 33 g/dL (31-37) Red Cell Distribution Width 15.0 % (11.5-14.5) Platelet Count 157 x10^3/uL (140-400) Erythrocyte Sedimentation Rate 88 (0-15) Sodium Level 142 mmol/L (136-145) 140 mmol/L (136-145) Potassium Level 4.4 mmol/L (3.5-5.1) 4.1 mmol/L (3.5-5.1) Chloride Level 100 mmol/L (98-107) 103 mmol/L (98-107) Carbon Dioxide Level 34 mmol/L (21-32) 29 mmol/L (21-32) Anion Gap 8 (6-14) 8 (6-14) Blood Urea Nitrogen 180 mg/dL (8-26) 59 mg/dL (8-26) Creatinine 8.9 mg/dL (0.7-1.3) 4.1 mg/dL (0.7-1.3) Estimated GFR (Cockcroft-Gault) 7.1 17.4 Glucose Level 141 mg/dL (70-99) 98 mg/dL (70-99) Calcium Level 8.4 mg/dL (8.5-10.1) 8.4 mg/dL (8.5-10.1) Phosphorus Level 6.7 mg/dL (2.6-4.7) 4.3 mg/dL (2.6-4.7) Magnesium Level 2.8 mg/dL (1.8-2.4) Thyroid Stimulating Hormone (TSH) 0.665 uIU/mL (0.358-3.74) Urine Collection Type Unknown Urine Color Yellow Urine Clarity Clear Urine pH 6.0 Urine Specific Bledsoe 1.010 Urine Protein 100 mg/dL (NEG-TRACE) Urine Glucose (UA) Negative mg/dL (NEG) Urine Ketones (Stick) Negative mg/dL (NEG) Urine Blood Large (NEG) Urine Nitrite Negative (NEG) Urine Bilirubin Negative (NEG) Urine Urobilinogen Dipstick 0.2 mg/dL (0.2 mg/dL) Urine Leukocyte Esterase Moderate (NEG) Urine RBC Tntc /HPF (0-2) Urine WBC 11-20 /HPF (0-4) Urine Squamous Epithelial Cells Occ /LPF Urine Bacteria 0 /HPF (0-FEW) Urine Mucus Slight /LPF Uric Acid 5.0 mg/dL (3.5-7.2) Creatine Kinase 95 U/L (39-308) Medications Current Medications Furosemide (Lasix) 40 mg 1X ONCE IVP Last administered on 05/01/17t 02:19; Start 05/01/17 at 01:30; Stop 05/01/17 at 01:31; Status DC Ondansetron HCl (Zofran) 4 mg PRN Q6HRS PRN IV NAUSEA/VOMITING; Start 05/01/17 at 01:30 Morphine Sulfate 2 mg PRN Q2HR PRN IV PAIN Last administered on 05/02/17 00:56 ; Start 05/01/17 at 01:30 Sodium Bicarbonate 150 meq/Sterile Water 1,150 ml @ 125 mls/hr Q9H12M IV Last administered on 05/01/17 02:28; Start 05/01/17 at 01:30; Stop 05/01/17 at 13:29 ; Status DC Acetaminophen/ Hydrocodone Bitart (Lortab 5/325) 1 tab PRN Q4HRS PRN PO PAIN; Start 05/01/17 at 08:00 Acetaminophen (Tylenol) 500 mg PRN Q6HRS PRN PO MILD PAIN / TEMP; Start at 08:00 Heparin Sodium (Porcine) (Heparin Sodium) 10,000 unit STK-MED ONCE .ROUTE ; Start 05/01/17 at 13:21; Stop 05/01/17 at 13:22; Status DC Lidocaine/Sodium Bicarbonate (Buffered Lidocaine 1%) 20 ml STK-MED ONCE IJ ; Start 05/01/17 at 13:22; Stop 05/01/17 at 13:23; Status DC Heparin Sodium/ Sodium Chloride 500 ml @ As Directed STK-MED ONCE .ROUTE ; Start 05/01/17 at 13:22; Stop 05/01/17 at 13:23; Status DC Lidocaine/Sodium Bicarbonate (Buffered Lidocaine 1%) 3 ml 1X ONCE IJ Last administered on 05/01/17 14:03; Start 05/01/17 at 13:30; Stop 05/01/17 at 13:31 ; Status DC Heparin Sodium/ Sodium Chloride 60 unit 1X ONCE IV Last administered on 14:03; Start 05/01/17 at 13:30; Stop 05/01/17 at 13:31; Status DC Heparin Sodium (Porcine) (Heparin Sodium) 2,500 unit 1X ONCE INT CAT Last administered on 05/01/17 13:30; Start 05/01/17 at 13:30; Stop 05/01/17 at 13:31 ; Status DC Sodium Chloride 1,000 ml @ 100 mls/hr Q10H IV Last administered on 05/02/17t 00:56; Start 05/01/17 at 14:00 Ceftriaxone Sodium 1 gm/ Sodium Chloride 50 ml @ 100 mls/hr Q24H IV Last administered on 05/01/17t 14:35; Start 05/01/17 at 14:00 Sodium Chloride 1,000 ml @ 1,000 mls/hr Q1H PRN IV hypotension; Start 05/01/17 at 18:50; Stop 05/02/17 at 00:49; Status DC Sodium Chloride (Normal Saline Flush) 10 ml 1X PRN PRN IV AP catheter pack; Start 05/01/17 at 19:00; Stop 05/02/17 at 18:59 Sodium Chloride (Normal Saline Flush) 10 ml 1X PRN PRN IV SU[employer] catheter pack; Start 05/01/17 at 19:00; Stop 05/02/17 at 18:59 Sodium Chloride 1,000 ml @ 400 mls/hr Q2H30M PRN IV PATENCY; Start 05/01/17 at 18:50; Stop 05/02/17 at 06:49; Status DC Info (PHARMACY MONITORING -- do not chart) 1 each PRN DAILY PRN MC SEE COMMENTS ; Start 05/01/17 at 19:00; Status UNV Info (PHARMACY MONITORING -- do not chart) 1 each PRN DAILY PRN MC SEE COMMENTS ; Start 05/01/17 at 19:00 Apixaban (Eliquis) 5 mg BID PO ; Start 05/02/17 at 09:00 Atorvastatin Calcium (Lipitor) 20 mg QHS PO ; Start 05/02/17 at 21:00 Carvedilol (Coreg) 12.5 mg DAILY PO ; Start 05/02/17 at 09:00 Lidocaine (Lidoderm) 1 patch DAILY TP ; Start 05/02/17 at 09:00 Sotalol HCl (Betapace) 120 mg DAILY PO ; Start 05/02/17 at 09:00 Tizanidine HCl (Zanaflex) 4 mg Q8HRS PO ; Start 05/02/17 at 09:30 Tramadol HCl (Ultram) 50 mg PRN Q6HRS PRN PO PAIN; Start 05/02/17 at 09:00 Furosemide (Lasix) 20 mg 1X ONCE IVP ; Start 05/02/17 at 09:30; Stop 05/02/17 at 09:40; Status DC Methylprednisolone Sodium Succinate (SOLU-Medrol 125MG VIAL) 125 mg 1X ONCE IV ; Start 05/02/17 at 09:30; Stop 05/02/17 at 09:40; Status DC Active Scripts Active Reported Tizanidine Hcl 4 Mg Tablet 1 Tab PO Q8HRS Spironolactone 25 Mg Tablet 1 Tab PO DAILY Atorvastatin Calcium 20 Mg Tablet 1 Tab PO DAILY Torsemide 20 Mg Tablet 50 Mg PO DAILY Carvedilol 12.5 Mg Tablet 1 Tab PO DAILY Sotalol (Sotalol Hcl) 80 Mg Tablet 120 Mg PO DAILY Tramadol Hcl 50 Mg Tablet 50 Mg PO Q6H PRN Lisinopril 5 Mg Tablet 1 Tab PO DAILY Eliquis (Apixaban) 5 Mg Tablet 5 Mg PO DAILY Lidocaine 1 Each Adh..patch 1 Each TP Vitals/I & O Vital Sign - Last 24 Hours 05/01/17 05/01/17 05/01/17 05/01/17 11:00 12:00 12:00 13:00 Temp 98.0 98.0 Pulse 60 62 61 Resp 24 20 20 B/P (MAP) 102/50 (67) 112/52 (72) 115/31 (59) Pulse Ox 96 99 97 O2 Delivery Room Air Room Air Room Air Room Air 05/01/17 05/01/17 05/01/17 05/01/17 14:00 15:00 16:00 16:00 Temp 98.5 98.5 Pulse 60 64 61 Resp 18 16 13 B/P (MAP) 109/55 (73) 103/53 (70) 109/56 (73) Pulse Ox 98 96 100 O2 Delivery Room Air Room Air Room Air Room Air 05/01/17 05/01/17 05/01/17 05/01/17 17:00 18:00 19:00 20:00 Temp 98.5 98.5 Pulse 60 60 65 62 Resp 16 15 19 17 B/P (MAP) 115/65 (82) 119/68 (85) 136/70 (92) 143/61 (88) Pulse Ox 100 100 99 100 O2 Delivery Room Air Room Air Room Air Room Air 05/01/17 05/01/17 05/01/17 05/01/17 20:00 21:00 22:00 22:25 Pulse 60 68 Resp 19 26 20 B/P (MAP) 141/59 (86) 155/59 (91) Pulse Ox 99 98 96 O2 Delivery Room Air Room Air Room Air Room Air 05/01/17 05/01/17 05/02/17 05/02/17 23:00 23:59 00:00 00:56 Temp 98.7 98.7 Pulse 60 60 Resp 16 18 17 B/P (MAP) 123/64 (83) 112/57 (75) Pulse Ox 100 100 98 O2 Delivery Room Air Room Air Room Air Room Air 05/02/17 05/02/17 05/02/17 05/02/17 01:00 01:26 02:00 03:00 Pulse 60 60 60 Resp 17 20 14 14 B/P (MAP) 114/63 (80) 118/62 (80) 116/58 (77) Pulse Ox 99 98 98 97 O2 Delivery Room Air Room Air Room Air Room Air 05/02/17 05/02/17 05/02/17 05/02/17 04:00 04:00 05:00 06:00 Temp 98.7 98.7 Pulse 60 60 60 Resp 12 15 15 B/P (MAP) 111/54 (73) 99/53 (68) 109/57 (74) Pulse Ox 98 96 98 O2 Delivery Room Air Room Air Room Air Room Air 05/02/17 05/02/17 05/02/17 05/02/17 07:00 08:00 08:00 09:00 Temp 98.6 98.6 Pulse 60 60 60 Resp 12 11 13 B/P (MAP) 109/57 (74) 107/57 (74) 120/69 (86) Pulse Ox 100 95 100 O2 Delivery Room Air Room Air Room Air Room Air Intake and Output 05/01/17 05/01/17 05/02/17 15:00 23:00 07:00 Intake Total 1365 ml 399 ml 1014 ml Output Total 755 ml 460 ml 260 ml Balance 610 ml -61 ml 754 ml PONCE MUSA MD May 02, 2017 10:14
[2017-05-02] MEDS: APIXABAN 5 MG TABLET. PO SCH ×2 (10:48→20:55)
[2017-05-02] MEDS: tiZANidine 4 MG TABLET. PO SCH ×3 (10:48→20:54)
[2017-05-02] MEDS: LIDOCAINE (700MG/PATCH) PATCH. TP SCH (10:49)
--- NOTE | 2017-05-02 11:53 | RAD ---
Procedure: Ultrasound and fluoroscopically guided placement of right internal jugular temporary dialysis catheter 05/02/2017 11:49 AM Clinical Indication: dialysis 05/01, Renal failure Consent: The procedure was explained in its entirety to the patient or the patients designated entry level account representative by a member of the treatment team, including a discussion of the risks, benefits and commonly accepted alternatives to the procedure, as well as the expected consequences of no therapy whatsoever. Discussion of the risks included, but was not limited to, those that are most frequent and those that are rare but possibly severe or life-threatening, as well as the possibility of unforeseen complications. Sterility: All elements of maximal sterile barrier technique including the use of a cap, mask, sterile gown, sterile gloves, large sterile sheet, appropriate hand hygiene, and 2% chlorhexidine for cutaneous antisepsis (or acceptable alternative antiseptic per current guidelines) were followed for this procedure. Technique and Findings: Following informed consent, the patient was prepped and draped in the usual sterile fashion. Ultrasound interrogation of the right neck revealed patency and compressibility of the right internal jugular vein. A 21-gauge micropuncture was then used to gain access to this vein under ultrasound guidance. A hard copy ultrasound image was recorded. The needle was exchanged over a wire for a sheath. No 35 guidewire was advanced centrally. Over this wire following dilatation a temporary dialysis catheter was advanced centrally. Catheter position was confirmed with follow-up chest x-ray. Catheter was found to flush and aspirate normally. No immediate complications were identified. The catheter was secured and a sterile dressing was applied. Impression: Successful ultrasound guided placement of a right internal jugular temporary dialysis catheter
[2017-05-02] MEDS: ANTI-COAG MONITOR BY PHARMACY. MC PRN (12:56)
[2017-05-02] MEDS ORDERED: IV NORMAL SALINE 1000ML BAG 1,000 ML IV PRN (15:13)
[2017-05-02] MEDS ORDERED: DIALYSIS PATIENT. MC PRN (15:15)
[2017-05-02 15:24] LABS: HEP B SURFACE ABDY Non Reactive (.)
[2017-05-02] MEDS: ATORVASTATIN CALCIUM 20 MG TABLET PO SCH (20:55)
[2017-05-03 07:00] VITALS: BP 118/53
[2017-05-03] MEDS: traMADol 50 MG TABLET PO PRN ×2 (08:13→15:31)
[2017-05-03] MEDS: tiZANidine 4 MG TABLET. PO SCH ×3 (08:13→20:58)
[2017-05-03] MEDS: SOTALOL 80 MG TABLET. PO SCH (08:15)
[2017-05-03] MEDS: APIXABAN 5 MG TABLET. PO SCH ×2 (08:16→20:59)
[2017-05-03] MEDS: CARVEDILOL 12.5 MG TABLET. PO SCH (08:16)
[2017-05-03] MEDS: LIDOCAINE (700MG/PATCH) PATCH. TP SCH (08:16)
[2017-05-03 11:00] VITALS: BP 115/48
[2017-05-03] MEDS: ANTI-COAG MONITOR BY PHARMACY. MC PRN (11:03)
[2017-05-03 12:45] LABS: CALCIUM 7.7 mg/dL (8.5-10.1); CREATININE 2.7 mg/dL (0.7-1.3); GFR 28.2; POTASSIUM 3.4 mmol/L (3.5-5.1)
--- NOTE | 2017-05-03 13:16 | PDOC ---
PROGRESS NOTES Subjective Subjective SEEN IN FOLLOW UP OF ARF Objective Objective Vital Signs Date Time Temp Pulse Resp B/P (MAP) Pulse Ox O2 Delivery O2 Flow Rate FiO2 05/03/17 11:00 97.9 61 18 115/48 (70) 98 Room Air 97.9 05/03/17 09:13 2.0 Intake and Output 05/03/17 07:00 Intake Total 525 ml Output Total 1315 ml Balance -790 ml Intake Oral 525 ml Output Urine Total 1315 ml Physical Exam Abdomen: Normal bowel sounds, Soft, No tenderness, No hepatosplenomegaly, No masses Heart: Regular rate, Normal S1, Normal S2, No murmurs, Gallops Extremities: No clubbing, No cyanosis, No edema, Normal pulses, No tenderness/ swelling General: Alert Lungs: Clear to auscultation, Normal air movement Diagnosis RENAL FAILURE: Acute, Other (DEHYDRATION) Plan Plan of Care CONT FOLLOW OFF DIALYSIS. NO ACUTE NEED AT THIS TIME Comment Review of Relevant I have reviewed the following items maranda (where applicable) has been applied. Labs Laboratory Tests Test 05/01/17 18:45 05/02/17 03:04 05/02/17 03:20 05/03/17 12:20 Hepatitis B Surface Antigen Negative (Negative) Hepatitis B Surface Antibody Non reactive (.) Hepatitis B Core IgM Antibody Negative (Negative) Urine Collection Type Unknown Urine Color Yellow Urine Clarity Clear Urine pH 6.0 Urine Specific Benedict 1.010 Urine Protein 100 mg/dL (NEG-TRACE) Urine Glucose (UA) Negative mg/dL (NEG) Urine Ketones (Stick) Negative mg/dL (NEG) Urine Blood Large (NEG) Urine Nitrite Negative (NEG) Urine Bilirubin Negative (NEG) Urine Urobilinogen Dipstick 0.2 mg/dL (0.2 mg/dL) Urine Leukocyte Esterase Moderate (NEG) Urine RBC Tntc /HPF (0-2) Urine WBC 11-20 /HPF (0-4) Urine Squamous Epithelial Cells Occ /LPF Urine Bacteria 0 /HPF (0-FEW) Urine Mucus Slight /LPF Sodium Level 140 mmol/L (136-145) 142 mmol/L (136-145) Potassium Level 4.1 mmol/L (3.5-5.1) 3.4 mmol/L (3.5-5.1) Chloride Level 103 mmol/L (98-107) 106 mmol/L (98-107) Carbon Dioxide Level 29 mmol/L (21-32) 30 mmol/L (21-32) Anion Gap 8 (6-14) 6 (6-14) Blood Urea Nitrogen 59 mg/dL (8-26) 29 mg/dL (8-26) Creatinine 4.1 mg/dL (0.7-1.3) 2.7 mg/dL (0.7-1.3) Estimated GFR (Cockcroft-Gault) 17.4 28.2 Glucose Level 98 mg/dL (70-99) 126 mg/dL (70-99) Uric Acid 5.0 mg/dL (3.5-7.2) Calcium Level 8.4 mg/dL (8.5-10.1) 7.7 mg/dL (8.5-10.1) Phosphorus Level 4.3 mg/dL (2.6-4.7) Creatine Kinase 95 U/L (39-308) Laboratory Tests Test 05/03/17 12:20 Sodium Level 142 mmol/L (136-145) Potassium Level 3.4 mmol/L (3.5-5.1) Chloride Level 106 mmol/L (98-107) Carbon Dioxide Level 30 mmol/L (21-32) Anion Gap 6 (6-14) Blood Urea Nitrogen 29 mg/dL (8-26) Creatinine 2.7 mg/dL (0.7-1.3) Estimated GFR (Cockcroft-Gault) 28.2 Glucose Level 126 mg/dL (70-99) Calcium Level 7.7 mg/dL (8.5-10.1) Medications Current Medications Furosemide (Lasix) 40 mg 1X ONCE IVP Last administered on 05/01/17 02:19; Start 05/01/17 at 01:30; Stop 05/01/17 at 01:31; Status DC Ondansetron HCl (Zofran) 4 mg PRN Q6HRS PRN IV NAUSEA/VOMITING; Start 05/01/17 at 01:30 Morphine Sulfate 2 mg PRN Q2HR PRN IV PAIN Last administered on 05/02/17 00:56 ; Start 05/01/17 at 01:30 Sodium Bicarbonate 150 meq/Sterile Water 1,150 ml @ 125 mls/hr Q9H12M IV Last administered on 05/01/17 02:28; Start 05/01/17 at 01:30; Stop 05/01/17 at 13:29 ; Status DC Acetaminophen/ Hydrocodone Bitart (Lortab 5/325) 1 tab PRN Q4HRS PRN PO SEVERE PAIN; Start 05/01/17 at 08:00 Acetaminophen (Tylenol) 500 mg PRN Q6HRS PRN PO MILD PAIN / TEMP; Start at 08:00 Heparin Sodium (Porcine) (Heparin Sodium) 10,000 unit STK-MED ONCE .ROUTE ; Start 05/01/17 at 13:21; Stop 05/01/17 at 13:22; Status DC Lidocaine/Sodium Bicarbonate (Buffered Lidocaine 1%) 20 ml STK-MED ONCE IJ ; Start 05/01/17 at 13:22; Stop 05/01/17 at 13:23; Status DC Heparin Sodium/ Sodium Chloride 500 ml @ As Directed STK-MED ONCE .ROUTE ; Start 05/01/17 at 13:22; Stop 05/01/17 at 13:23; Status DC Lidocaine/Sodium Bicarbonate (Buffered Lidocaine 1%) 3 ml 1X ONCE IJ Last administered on 05/01/17 14:03; Start 05/01/17 at 13:30; Stop 05/01/17 at 13:31 ; Status DC Heparin Sodium/ Sodium Chloride 60 unit 1X ONCE IV Last administered on 14:03; Start 05/01/17 at 13:30; Stop 05/01/17 at 13:31; Status DC Heparin Sodium (Porcine) (Heparin Sodium) 2,500 unit 1X ONCE INT CAT Last administered on 05/01/17 13:30; Start 05/01/17 at 13:30; Stop 05/01/17 at 13:31 ; Status DC Sodium Chloride 1,000 ml @ 100 mls/hr Q10H IV Last administered on 05/02/17 10:22; Start 05/01/17 at 14:00 Ceftriaxone Sodium 1 gm/ Sodium Chloride 50 ml @ 100 mls/hr Q24H IV Last administered on 05/02/17 18:34; Start 05/01/17 at 14:00 Sodium Chloride 1,000 ml @ 1,000 mls/hr Q1H PRN IV hypotension; Start 05/01/17 at 18:50; Stop 05/02/17 at 00:49; Status DC Sodium Chloride (Normal Saline Flush) 10 ml 1X PRN PRN IV AP catheter pack; Start 05/01/17 at 19:00; Stop 05/02/17 at 18:59; Status DC Sodium Chloride (Normal Saline Flush) 10 ml 1X PRN PRN IV IV RN catheter pack; Start 05/01/17 at 19:00; Stop 05/02/17 at 18:59; Status DC Sodium Chloride 1,000 ml @ 400 mls/hr Q2H30M PRN IV PATENCY; Start 05/01/17 at 18:50; Stop 05/02/17 at 06:49; Status DC Info (PHARMACY MONITORING -- do not chart) 1 each PRN DAILY PRN MC SEE COMMENTS ; Start 05/01/17 at 19:00; Status UNV Info (PHARMACY MONITORING -- do not chart) 1 each PRN DAILY PRN MC SEE COMMENTS ; Start 05/01/17 at 19:00; Stop 05/03/17 at 07:59; Status DC Apixaban (Eliquis) 5 mg BID PO Last administered on 05/03/17 08:16; Start at 09:00 Atorvastatin Calcium (Lipitor) 20 mg QHS PO Last administered on 05/02/17 20: 55; Start 05/02/17 at 21:00 Carvedilol (Coreg) 12.5 mg DAILY PO ; Start 05/02/17 at 09:00 Lidocaine (Lidoderm) 1 patch DAILY TP Last administered on 05/03/17 08:16; Start 05/02/17 at 09:00 Sotalol HCl (Betapace) 120 mg DAILY PO ; Start 05/02/17 at 09:00 Tizanidine HCl (Zanaflex) 4 mg Q8HRS PO Last administered on 05/03/17 08:13; Start 05/02/17 at 09:30 Tramadol HCl (Ultram) 50 mg PRN Q6HRS PRN PO MODERATE PAIN Last administered on 05/03/17 08:13; Start 05/02/17 at 09:00 Furosemide (Lasix) 20 mg 1X ONCE IVP ; Start 05/02/17 at 09:30; Stop 05/02/17 at 09:40; Status DC Methylprednisolone Sodium Succinate (SOLU-Medrol 125MG VIAL) 125 mg 1X ONCE IV ; Start 05/02/17 at 09:30; Stop 05/02/17 at 09:40; Status DC Info (Anti-Coagulation Monitoring By Pharmacy) 1 each PRN DAILY PRN MC SEE COMMENTS Last administered on 05/03/17t 11:03; Start 05/02/17 at 13:00 Sodium Chloride 1,000 ml @ 1,000 mls/hr Q1H PRN IV hypotension; Start 05/02/17 at 15:13; Stop 05/02/17 at 21:12; Status DC Info (PHARMACY MONITORING -- do not chart) 1 each PRN DAILY PRN MC SEE COMMENTS ; Start 05/02/17 at 15:15 Active Scripts Active Reported Tizanidine Hcl 4 Mg Tablet 1 Tab PO Q8HRS Spironolactone 25 Mg Tablet 1 Tab PO DAILY Atorvastatin Calcium 20 Mg Tablet 1 Tab PO DAILY Torsemide 20 Mg Tablet 50 Mg PO DAILY Carvedilol 12.5 Mg Tablet 1 Tab PO DAILY Sotalol (Sotalol Hcl) 80 Mg Tablet 120 Mg PO DAILY Tramadol Hcl 50 Mg Tablet 50 Mg PO Q6H PRN Lisinopril 5 Mg Tablet 1 Tab PO DAILY Eliquis (Apixaban) 5 Mg Tablet 5 Mg PO DAILY Lidocaine 1 Each Adh..patch 1 Each TP Vitals/I & O Vital Sign - Last 24 Hours 05/02/17 05/02/17 05/02/17 05/02/17 13:39 19:00 20:20 23:00 Temp 98.6 98.2 99.0 98.6 98.2 99.0 Pulse 72 62 59 Resp 14 20 20 B/P (MAP) 109/49 (69) 113/47 (69) 121/52 (75) Pulse Ox 97 99 96 O2 Delivery Room Air Room Air Room Air Room Air 05/03/17 05/03/17 05/03/17 05/03/17 03:00 07:00 08:13 08:15 Temp 97.9 97.9 Pulse 62 62 Resp 18 B/P (MAP) 118/53 (74) 118/53 Pulse Ox 100 O2 Delivery Nasal Cannula Room Air O2 Flow Rate 2.0 05/03/17 05/03/17 05/03/17 08:16 09:13 11:00 Temp 97.9 97.9 Pulse 62 61 Resp 18 B/P (MAP) 118/53 115/48 (70) Pulse Ox 100 98 O2 Delivery Room Air Room Air O2 Flow Rate 2.0 Intake and Output 05/02/17 05/02/17 05/03/17 15:00 23:00 07:00 Intake Total 225 ml 300 ml Output Total 565 ml 0 ml 750 ml Balance -340 ml 0 ml -450 ml JENNY DAIGLE MD May 03, 2017 13:16
[2017-05-03] MEDS: IV NORMAL SALINE 1000ML BAG 1,000 ML IV SCH ×2 (13:19→13:24)
--- NOTE | 2017-05-03 13:29 | PDOC ---
PROGRESS NOTES Chief Complaint Chief Complaint CC confusion RINKU with CKD stage 5 AOCD HTN CAD CHF Dsylipidemia atrial fib chronic stable History of Present Illness History of Present Illness 72 y/o M with CC of confusion pt was found laying supine in room unresponsive with some element of cognitive impairment continue to monitor labs and electrolytes Vitals Vitals Vital Signs Date Time Temp Pulse Resp B/P (MAP) Pulse Ox O2 Delivery O2 Flow Rate FiO2 05/03/17 11:00 97.9 61 18 115/48 (70) 98 Room Air 97.9 05/03/17 09:13 2.0 Physical Exam General: Alert Heart: Regular rate, Normal S1, Normal S2, No murmurs, Gallops Abdomen: Normal bowel sounds, Soft, No tenderness, No hepatosplenomegaly, No masses Extremities: No clubbing, No cyanosis, No edema, Normal pulses, No tenderness/ swelling Skin: No rashes, No significant lesion Labs LABS Laboratory Tests Test 05/03/17 12:20 Sodium Level 142 mmol/L (136-145) Potassium Level 3.4 mmol/L (3.5-5.1) Chloride Level 106 mmol/L (98-107) Carbon Dioxide Level 30 mmol/L (21-32) Anion Gap 6 (6-14) Blood Urea Nitrogen 29 mg/dL (8-26) Creatinine 2.7 mg/dL (0.7-1.3) Estimated GFR (Cockcroft-Gault) 28.2 Glucose Level 126 mg/dL (70-99) Calcium Level 7.7 mg/dL (8.5-10.1) Review of Systems Review of Systems weakness confusion Assessment and Plan Assessmemt and Plan ASSESSMENT -CC confusion RINKU with CKD stage 5 AOCD HTN CAD CHF Dsylipidemia atrial fib chronic stable PLAN -continue IV fluids -continue home meds -monitor labs and electrolytes -PTOT -continue DVT prophylaxis Problems: Comment Review of Relevant I have reviewed the following items maranda (where applicable) has been applied. Labs Laboratory Tests Test 05/01/17 18:45 05/02/17 03:04 05/02/17 03:20 05/03/17 12:20 Hepatitis B Surface Antigen Negative (Negative) Hepatitis B Surface Antibody Non reactive (.) Hepatitis B Core IgM Antibody Negative (Negative) Urine Collection Type Unknown Urine Color Yellow Urine Clarity Clear Urine pH 6.0 Urine Specific Colbert 1.010 Urine Protein 100 mg/dL (NEG-TRACE) Urine Glucose (UA) Negative mg/dL (NEG) Urine Ketones (Stick) Negative mg/dL (NEG) Urine Blood Large (NEG) Urine Nitrite Negative (NEG) Urine Bilirubin Negative (NEG) Urine Urobilinogen Dipstick 0.2 mg/dL (0.2 mg/dL) Urine Leukocyte Esterase Moderate (NEG) Urine RBC Tntc /HPF (0-2) Urine WBC 11-20 /HPF (0-4) Urine Squamous Epithelial Cells Occ /LPF Urine Bacteria 0 /HPF (0-FEW) Urine Mucus Slight /LPF Sodium Level 140 mmol/L (136-145) 142 mmol/L (136-145) Potassium Level 4.1 mmol/L (3.5-5.1) 3.4 mmol/L (3.5-5.1) Chloride Level 103 mmol/L (98-107) 106 mmol/L (98-107) Carbon Dioxide Level 29 mmol/L (21-32) 30 mmol/L (21-32) Anion Gap 8 (6-14) 6 (6-14) Blood Urea Nitrogen 59 mg/dL (8-26) 29 mg/dL (8-26) Creatinine 4.1 mg/dL (0.7-1.3) 2.7 mg/dL (0.7-1.3) Estimated GFR (Cockcroft-Gault) 17.4 28.2 Glucose Level 98 mg/dL (70-99) 126 mg/dL (70-99) Uric Acid 5.0 mg/dL (3.5-7.2) Calcium Level 8.4 mg/dL (8.5-10.1) 7.7 mg/dL (8.5-10.1) Phosphorus Level 4.3 mg/dL (2.6-4.7) Creatine Kinase 95 U/L (39-308) Laboratory Tests Test 05/03/17 12:20 Sodium Level 142 mmol/L (136-145) Potassium Level 3.4 mmol/L (3.5-5.1) Chloride Level 106 mmol/L (98-107) Carbon Dioxide Level 30 mmol/L (21-32) Anion Gap 6 (6-14) Blood Urea Nitrogen 29 mg/dL (8-26) Creatinine 2.7 mg/dL (0.7-1.3) Estimated GFR (Cockcroft-Gault) 28.2 Glucose Level 126 mg/dL (70-99) Calcium Level 7.7 mg/dL (8.5-10.1) Medications Current Medications Furosemide (Lasix) 40 mg 1X ONCE IVP Last administered on 05/01/17 02:19; Start 05/01/17 at 01:30; Stop 05/01/17 at 01:31; Status DC Ondansetron HCl (Zofran) 4 mg PRN Q6HRS PRN IV NAUSEA/VOMITING; Start 05/01/17 at 01:30 Morphine Sulfate 2 mg PRN Q2HR PRN IV PAIN Last administered on 05/02/17 00:56 ; Start 05/01/17 at 01:30 Sodium Bicarbonate 150 meq/Sterile Water 1,150 ml @ 125 mls/hr Q9H12M IV Last administered on 05/01/17 02:28; Start 05/01/17 at 01:30; Stop 05/01/17 at 13:29 ; Status DC Acetaminophen/ Hydrocodone Bitart (Lortab 5/325) 1 tab PRN Q4HRS PRN PO SEVERE PAIN; Start 05/01/17 at 08:00 Acetaminophen (Tylenol) 500 mg PRN Q6HRS PRN PO MILD PAIN / TEMP; Start at 08:00 Heparin Sodium (Porcine) (Heparin Sodium) 10,000 unit STK-MED ONCE .ROUTE ; Start 05/01/17 at 13:21; Stop 05/01/17 at 13:22; Status DC Lidocaine/Sodium Bicarbonate (Buffered Lidocaine 1%) 20 ml STK-MED ONCE IJ ; Start 05/01/17 at 13:22; Stop 05/01/17 at 13:23; Status DC Heparin Sodium/ Sodium Chloride 500 ml @ As Directed STK-MED ONCE .ROUTE ; Start 05/01/17 at 13:22; Stop 05/01/17 at 13:23; Status DC Lidocaine/Sodium Bicarbonate (Buffered Lidocaine 1%) 3 ml 1X ONCE IJ Last administered on 05/01/17 14:03; Start 05/01/17 at 13:30; Stop 05/01/17 at 13:31 ; Status DC Heparin Sodium/ Sodium Chloride 60 unit 1X ONCE IV Last administered on 14:03; Start 05/01/17 at 13:30; Stop 05/01/17 at 13:31; Status DC Heparin Sodium (Porcine) (Heparin Sodium) 2,500 unit 1X ONCE INT CAT Last administered on 05/01/17 13:30; Start 05/01/17 at 13:30; Stop 05/01/17 at 13:31 ; Status DC Sodium Chloride 1,000 ml @ 100 mls/hr Q10H IV Last administered on 05/03/17 13:19; Start 05/01/17 at 14:00 Ceftriaxone Sodium 1 gm/ Sodium Chloride 50 ml @ 100 mls/hr Q24H IV Last administered on 05/03/17 13:19; Start 05/01/17 at 14:00 Sodium Chloride 1,000 ml @ 1,000 mls/hr Q1H PRN IV hypotension; Start 05/01/17 at 18:50; Stop 05/02/17 at 00:49; Status DC Sodium Chloride (Normal Saline Flush) 10 ml 1X PRN PRN IV AP catheter pack; Start 05/01/17 at 19:00; Stop 05/02/17 at 18:59; Status DC Sodium Chloride (Normal Saline Flush) 10 ml 1X PRN PRN 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; Start 05/01/17 at 19:00; Stop 05/02/17 at 18:59; Status DC Sodium Chloride 1,000 ml @ 400 mls/hr Q2H30M PRN IV PATENCY; Start 05/01/17 at 18:50; Stop 05/02/17 at 06:49; Status DC Info (PHARMACY MONITORING -- do not chart) 1 each PRN DAILY PRN MC SEE COMMENTS ; Start 05/01/17 at 19:00; Status UNV Info (PHARMACY MONITORING -- do not chart) 1 each PRN DAILY PRN MC SEE COMMENTS ; Start 05/01/17 at 19:00; Stop 05/03/17 at 07:59; Status DC Apixaban (Eliquis) 5 mg BID PO Last administered on 05/03/17 08:16; Start at 09:00 Atorvastatin Calcium (Lipitor) 20 mg QHS PO Last administered on 05/02/17 20: 55; Start 05/02/17 at 21:00 Carvedilol (Coreg) 12.5 mg DAILY PO ; Start 05/02/17 at 09:00 Lidocaine (Lidoderm) 1 patch DAILY TP Last administered on 05/03/17 08:16; Start 05/02/17 at 09:00 Sotalol HCl (Betapace) 120 mg DAILY PO ; Start 05/02/17 at 09:00 Tizanidine HCl (Zanaflex) 4 mg Q8HRS PO Last administered on 05/03/17 08:13; Start 05/02/17 at 09:30 Tramadol HCl (Ultram) 50 mg PRN Q6HRS PRN PO MODERATE PAIN Last administered on 05/03/17 08:13; Start 05/02/17 at 09:00 Furosemide (Lasix) 20 mg 1X ONCE IVP ; Start 05/02/17 at 09:30; Stop 05/02/17 at 09:40; Status DC Methylprednisolone Sodium Succinate (SOLU-Medrol 125MG VIAL) 125 mg 1X ONCE IV ; Start 05/02/17 at 09:30; Stop 05/02/17 at 09:40; Status DC Info (Anti-Coagulation Monitoring By Pharmacy) 1 each PRN DAILY PRN MC SEE COMMENTS Last administered on 05/03/17 11:03; Start 05/02/17 at 13:00 Sodium Chloride 1,000 ml @ 1,000 mls/hr Q1H PRN IV hypotension; Start 05/02/17 at 15:13; Stop 05/02/17 at 21:12; Status DC Info (PHARMACY MONITORING -- do not chart) 1 each PRN DAILY PRN MC SEE COMMENTS ; Start 05/02/17 at 15:15 Active Scripts Active Reported Tizanidine Hcl 4 Mg Tablet 1 Tab PO Q8HRS Spironolactone 25 Mg Tablet 1 Tab PO DAILY Atorvastatin Calcium 20 Mg Tablet 1 Tab PO DAILY Torsemide 20 Mg Tablet 50 Mg PO DAILY Carvedilol 12.5 Mg Tablet 1 Tab PO DAILY Sotalol (Sotalol Hcl) 80 Mg Tablet 120 Mg PO DAILY Tramadol Hcl 50 Mg Tablet 50 Mg PO Q6H PRN Lisinopril 5 Mg Tablet 1 Tab PO DAILY Eliquis (Apixaban) 5 Mg Tablet 5 Mg PO DAILY Lidocaine 1 Each Adh..patch 1 Each TP Vitals/I & O Vital Sign - Last 24 Hours 05/02/17 05/02/17 05/02/17 05/02/17 13:39 19:00 20:20 23:00 Temp 98.6 98.2 99.0 98.6 98.2 99.0 Pulse 72 62 59 Resp 14 20 20 B/P (MAP) 109/49 (69) 113/47 (69) 121/52 (75) Pulse Ox 97 99 96 O2 Delivery Room Air Room Air Room Air Room Air 05/03/17 05/03/17 05/03/17 05/03/17 03:00 07:00 08:13 08:15 Temp 97.9 97.9 Pulse 62 62 Resp 18 B/P (MAP) 118/53 (74) 118/53 Pulse Ox 100 O2 Delivery Nasal Cannula Room Air O2 Flow Rate 2.0 05/03/17 05/03/17 05/03/17 08:16 09:13 11:00 Temp 97.9 97.9 Pulse 62 61 Resp 18 B/P (MAP) 118/53 115/48 (70) Pulse Ox 100 98 O2 Delivery Room Air Room Air O2 Flow Rate 2.0 Intake and Output 05/02/17 05/02/17 05/03/17 15:00 23:00 07:00 Intake Total 225 ml 300 ml Output Total 565 ml 0 ml 750 ml Balance -340 ml 0 ml -450 ml JARON ARCEO III DO May 03, 2017 13:29
[2017-05-03 15:06] VITALS: BP 114/50
[2017-05-03] MEDS: DOCUSATE SODIUM 100 MG CAPSULE. PO SCH (18:21)
[2017-05-03 19:59] VITALS: BP 107/56
[2017-05-03] MEDS: ATORVASTATIN CALCIUM 20 MG TABLET PO SCH (20:58)
[2017-05-03 23:59] VITALS: BP 107/48
[2017-05-04] MEDS: IV NORMAL SALINE 1000ML BAG 1,000 ML IV SCH ×3 (01:27→20:37)
[2017-05-04 03:59] VITALS: BP 124/50
[2017-05-04] MEDS: traMADol 50 MG TABLET PO PRN (04:37)
[2017-05-04] MEDS: tiZANidine 4 MG TABLET. PO SCH ×3 (06:19→20:36)
[2017-05-04 07:00] VITALS: BP 87/47
[2017-05-04 07:47] LABS: CALCIUM 8.2 mg/dL (8.5-10.1); CREATININE 2.5 mg/dL (0.7-1.3); GFR 30.8; POTASSIUM 3.7 mmol/L (3.5-5.1)
[2017-05-04] MEDS: DOCUSATE SODIUM 100 MG CAPSULE. PO SCH (08:10)
[2017-05-04] MEDS: LIDOCAINE (700MG/PATCH) PATCH. TP SCH (08:10)
[2017-05-04] MEDS: APIXABAN 5 MG TABLET. PO SCH ×2 (08:10→20:36)
[2017-05-04] MEDS: CARVEDILOL 12.5 MG TABLET. PO SCH (08:13)
[2017-05-04] MEDS: SOTALOL 80 MG TABLET. PO SCH (08:13)
[2017-05-04] MEDS: ANTI-COAG MONITOR BY PHARMACY. MC PRN (09:45)
[2017-05-04 10:50] VITALS: BP 115/52
[2017-05-04] MEDS: POLYETHYLENE GLYCOL 3350 17 GM PACKET. PO SCH (12:00)
[2017-05-04] MEDS ORDERED: MAGNESIUM CITRATE 296 ML SOLUTION. PO ONE (12:00)
--- NOTE | 2017-05-04 14:44 | PDOC ---
PROGRESS NOTES Chief Complaint Chief Complaint CC confusion RINKU with CKD stage 5 AOCD HTN CAD CHF Dsylipidemia atrial fib chronic stable History of Present Illness History of Present Illness 72 y/o M with CC of confusion pt was found laying supine in room unresponsive with some element of cognitive impairment continue to monitor labs and electrolytes Vitals Vitals Vital Signs Date Time Temp Pulse Resp B/P (MAP) Pulse Ox O2 Delivery O2 Flow Rate FiO2 05/04/17 10:50 98.1 56 18 115/52 (73) 94 Room Air 98.1 05/04/17 08:15 2.0 Physical Exam General: Alert, Cooperative Heart: Regular rate, Normal S1, Normal S2, No murmurs, Gallops Lungs: Clear, Other (No RRW) Abdomen: Normal bowel sounds, Soft, No tenderness, No hepatosplenomegaly, No masses Extremities: No clubbing, No cyanosis, No edema, Normal pulses, No tenderness/ swelling Skin: No rashes, No significant lesion Labs LABS Laboratory Tests Test 05/04/17 07:15 Sodium Level 143 mmol/L (136-145) Potassium Level 3.7 mmol/L (3.5-5.1) Chloride Level 109 mmol/L (98-107) Carbon Dioxide Level 26 mmol/L (21-32) Anion Gap 8 (6-14) Blood Urea Nitrogen 26 mg/dL (8-26) Creatinine 2.5 mg/dL (0.7-1.3) Estimated GFR (Cockcroft-Gault) 30.8 Glucose Level 98 mg/dL (70-99) Calcium Level 8.2 mg/dL (8.5-10.1) Review of Systems Review of Systems GEN: Denies fevers or chills GI: Complains of nausea MSK: Complains of weakness Assessment and Plan Assessmemt and Plan CC confusion Plan: -Continue abx for UTI -Continue dialysis -Miralax packet q.d. -PT/OT -Continue home meds Problems: Comment Review of Relevant I have reviewed the following items maranda (where applicable) has been applied. Labs Laboratory Tests Test 05/03/17 12:20 05/04/17 07:15 Sodium Level 142 mmol/L (136-145) 143 mmol/L (136-145) Potassium Level 3.4 mmol/L (3.5-5.1) 3.7 mmol/L (3.5-5.1) Chloride Level 106 mmol/L (98-107) 109 mmol/L (98-107) Carbon Dioxide Level 30 mmol/L (21-32) 26 mmol/L (21-32) Anion Gap 6 (6-14) 8 (6-14) Blood Urea Nitrogen 29 mg/dL (8-26) 26 mg/dL (8-26) Creatinine 2.7 mg/dL (0.7-1.3) 2.5 mg/dL (0.7-1.3) Estimated GFR (Cockcroft-Gault) 28.2 30.8 Glucose Level 126 mg/dL (70-99) 98 mg/dL (70-99) Calcium Level 7.7 mg/dL (8.5-10.1) 8.2 mg/dL (8.5-10.1) Laboratory Tests Test 05/04/17 07:15 Sodium Level 143 mmol/L (136-145) Potassium Level 3.7 mmol/L (3.5-5.1) Chloride Level 109 mmol/L (98-107) Carbon Dioxide Level 26 mmol/L (21-32) Anion Gap 8 (6-14) Blood Urea Nitrogen 26 mg/dL (8-26) Creatinine 2.5 mg/dL (0.7-1.3) Estimated GFR (Cockcroft-Gault) 30.8 Glucose Level 98 mg/dL (70-99) Calcium Level 8.2 mg/dL (8.5-10.1) Medications Current Medications Furosemide (Lasix) 40 mg 1X ONCE IVP Last administered on 05/01/17 02:19; Start 05/01/17 at 01:30; Stop 05/01/17 at 01:31; Status DC Ondansetron HCl (Zofran) 4 mg PRN Q6HRS PRN IV NAUSEA/VOMITING; Start 05/01/17 at 01:30 Morphine Sulfate 2 mg PRN Q2HR PRN IV PAIN Last administered on 05/02/17 00:56 ; Start 05/01/17 at 01:30 Sodium Bicarbonate 150 meq/Sterile Water 1,150 ml @ 125 mls/hr Q9H12M IV Last administered on 05/01/17 02:28; Start 05/01/17 at 01:30; Stop 05/01/17 at 13:29 ; Status DC Acetaminophen/ Hydrocodone Bitart (Lortab 5/325) 1 tab PRN Q4HRS PRN PO SEVERE PAIN; Start 05/01/17 at 08:00 Acetaminophen (Tylenol) 500 mg PRN Q6HRS PRN PO MILD PAIN / TEMP; Start at 08:00 Heparin Sodium (Porcine) (Heparin Sodium) 10,000 unit STK-MED ONCE .ROUTE ; Start 05/01/17 at 13:21; Stop 05/01/17 at 13:22; Status DC Lidocaine/Sodium Bicarbonate (Buffered Lidocaine 1%) 20 ml STK-MED ONCE IJ ; Start 05/01/17 at 13:22; Stop 05/01/17 at 13:23; Status DC Heparin Sodium/ Sodium Chloride 500 ml @ As Directed STK-MED ONCE .ROUTE ; Start 05/01/17 at 13:22; Stop 05/01/17 at 13:23; Status DC Lidocaine/Sodium Bicarbonate (Buffered Lidocaine 1%) 3 ml 1X ONCE IJ Last administered on 05/01/17 14:03; Start 05/01/17 at 13:30; Stop 05/01/17 at 13:31 ; Status DC Heparin Sodium/ Sodium Chloride 60 unit 1X ONCE IV Last administered on 14:03; Start 05/01/17 at 13:30; Stop 05/01/17 at 13:31; Status DC Heparin Sodium (Porcine) (Heparin Sodium) 2,500 unit 1X ONCE INT CAT Last administered on 05/01/17 13:30; Start 05/01/17 at 13:30; Stop 05/01/17 at 13:31 ; Status DC Sodium Chloride 1,000 ml @ 100 mls/hr Q10H IV Last administered on 05/04/17 12:00; Start 05/01/17 at 14:00 Ceftriaxone Sodium 1 gm/ Sodium Chloride 50 ml @ 100 mls/hr Q24H IV Last administered on 05/03/17 13:19; Start 05/01/17 at 14:00 Sodium Chloride 1,000 ml @ 1,000 mls/hr Q1H PRN IV hypotension; Start 05/01/17 at 18:50; Stop 05/02/17 at 00:49; Status DC Sodium Chloride (Normal Saline Flush) 10 ml 1X PRN PRN IV AP catheter pack; Start 05/01/17 at 19:00; Stop 05/02/17 at 18:59; Status DC Sodium Chloride (Normal Saline Flush) 10 ml 1X PRN PRN 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; Start 05/01/17 at 19:00; Stop 05/02/17 at 18:59; Status DC Sodium Chloride 1,000 ml @ 400 mls/hr Q2H30M PRN IV PATENCY; Start 05/01/17 at 18:50; Stop 05/02/17 at 06:49; Status DC Info (PHARMACY MONITORING -- do not chart) 1 each PRN DAILY PRN MC SEE COMMENTS ; Start 05/01/17 at 19:00; Status UNV Info (PHARMACY MONITORING -- do not chart) 1 each PRN DAILY PRN MC SEE COMMENTS ; Start 05/01/17 at 19:00; Stop 05/03/17 at 07:59; Status DC Apixaban (Eliquis) 5 mg BID PO Last administered on 05/04/17 08:10; Start at 09:00 Atorvastatin Calcium (Lipitor) 20 mg QHS PO Last administered on 05/03/17 20: 58; Start 05/02/17 at 21:00 Carvedilol (Coreg) 12.5 mg DAILY PO ; Start 05/02/17 at 09:00 Lidocaine (Lidoderm) 1 patch DAILY TP Last administered on 05/04/17 08:10; Start 05/02/17 at 09:00 Sotalol HCl (Betapace) 120 mg DAILY PO ; Start 05/02/17 at 09:00 Tizanidine HCl (Zanaflex) 4 mg Q8HRS PO Last administered on 05/04/17 06:19; Start 05/02/17 at 09:30 Tramadol HCl (Ultram) 50 mg PRN Q6HRS PRN PO MODERATE PAIN Last administered on 05/04/17 04:37; Start 05/02/17 at 09:00 Furosemide (Lasix) 20 mg 1X ONCE IVP ; Start 05/02/17 at 09:30; Stop 05/02/17 at 09:40; Status DC Methylprednisolone Sodium Succinate (SOLU-Medrol 125MG VIAL) 125 mg 1X ONCE IV ; Start 05/02/17 at 09:30; Stop 05/02/17 at 09:40; Status DC Info (Anti-Coagulation Monitoring By Pharmacy) 1 each PRN DAILY PRN MC SEE COMMENTS Last administered on 05/04/17 09:45; Start 05/02/17 at 13:00 Sodium Chloride 1,000 ml @ 1,000 mls/hr Q1H PRN IV hypotension; Start 05/02/17 at 15:13; Stop 05/02/17 at 21:12; Status DC Info (PHARMACY MONITORING -- do not chart) 1 each PRN DAILY PRN MC SEE COMMENTS ; Start 05/02/17 at 15:15 Docusate Sodium (Colace) 100 mg DAILY PO Last administered on 05/04/17 08:10; Start 05/03/17 at 18:00 Magnesium Citrate (Citroma) 296 ml 1X ONCE PO ; Start 05/04/17 at 12:00; Stop 05/04/17 at 12:01; Status DC Polyethylene Glycol (miraLAX PACKET) 17 gm DAILY PO Last administered on 12:00; Start 05/04/17 at 12:00 Active Scripts Active Reported Tizanidine Hcl 4 Mg Tablet 1 Tab PO Q8HRS Spironolactone 25 Mg Tablet 1 Tab PO DAILY Atorvastatin Calcium 20 Mg Tablet 1 Tab PO DAILY Torsemide 20 Mg Tablet 50 Mg PO DAILY Carvedilol 12.5 Mg Tablet 1 Tab PO DAILY Sotalol (Sotalol Hcl) 80 Mg Tablet 120 Mg PO DAILY Tramadol Hcl 50 Mg Tablet 50 Mg PO Q6H PRN Lisinopril 5 Mg Tablet 1 Tab PO DAILY Eliquis (Apixaban) 5 Mg Tablet 5 Mg PO DAILY Lidocaine 1 Each Adh..patch 1 Each TP Vitals/I & O Vital Sign - Last 24 Hours 05/03/17 05/03/17 05/03/17 05/03/17 15:06 15:31 16:31 19:59 Temp 97.5 97.4 97.5 97.4 Pulse 61 63 Resp 18 20 B/P (MAP) 114/50 (71) 107/56 (73) Pulse Ox 97 97 97 O2 Delivery Room Air Room Air Room Air Room Air O2 Flow Rate 2.0 05/03/17 05/03/17 05/04/17 05/04/17 20:00 23:59 03:59 04:37 Temp 97.9 98.6 97.9 98.6 Pulse 59 60 Resp 18 18 B/P (MAP) 107/48 (67) 124/50 (74) Pulse Ox 97 95 97 O2 Delivery Room Air Room Air Room Air Room Air O2 Flow Rate 2.0 05/04/17 05/04/17 05/04/17 05/04/17 07:00 08:13 08:13 08:15 Temp 98.1 98.1 Pulse 57 57 57 Resp 18 B/P (MAP) 87/47 (60) 87/47 87/47 Pulse Ox 94 O2 Delivery Nasal Cannula Room Air O2 Flow Rate 2.0 2.0 05/04/17 10:50 Temp 98.1 98.1 Pulse 56 Resp 18 B/P (MAP) 115/52 (73) Pulse Ox 94 O2 Delivery Room Air Intake and Output 05/03/17 05/03/17 05/04/17 15:00 23:00 07:00 Intake Total 600 ml 1050 ml 620 ml Output Total 350 ml 325 ml Balance 600 ml 700 ml 295 ml JARON ARCEO III DO May 04, 2017 14:44
[2017-05-04 15:14] VITALS: BP 112/50
[2017-05-04 19:00] VITALS: BP 133/63
[2017-05-04] MEDS: ATORVASTATIN CALCIUM 20 MG TABLET PO SCH (20:36)
[2017-05-04 23:00] VITALS: BP 133/55
[2017-05-05 03:00] VITALS: BP 150/62
[2017-05-05] MEDS: tiZANidine 4 MG TABLET. PO SCH ×3 (05:16→22:18)
[2017-05-05 07:00] VITALS: BP 127/58
[2017-05-05] MEDS: IV NORMAL SALINE 1000ML BAG 1,000 ML IV SCH (08:00)
[2017-05-05] MEDS: APIXABAN 5 MG TABLET. PO SCH ×2 (08:28→22:18)
[2017-05-05] MEDS: SOTALOL 80 MG TABLET. PO SCH (08:28)
[2017-05-05] MEDS: DOCUSATE SODIUM 100 MG CAPSULE. PO SCH ×3 (08:29→21:00)
[2017-05-05] MEDS: CARVEDILOL 12.5 MG TABLET. PO SCH (08:29)
[2017-05-05] MEDS: MORPHINE SULFATE 2 MG/ML DISP.SYRIN. IV PRN ×3 (08:30→18:11)
[2017-05-05] MEDS: LIDOCAINE (700MG/PATCH) PATCH. TP SCH (08:34)
[2017-05-05] MEDS: POLYETHYLENE GLYCOL 3350 17 GM PACKET. PO SCH (08:34)
[2017-05-05 08:35] LABS: CALCIUM 7.9 mg/dL (8.5-10.1); CREATININE 2.2 mg/dL (0.7-1.3); GFR 35.7; POTASSIUM 3.9 mmol/L (3.5-5.1)
[2017-05-05] MEDS ORDERED: MAGNESIUM HYDROXIDE 2,400 MG/30 ML ORAL.SUSP. PO PRN (10:30)
[2017-05-05] MEDS ORDERED: BISACODYL 10 MG SUPP.RECT. PR PRN (10:30)
[2017-05-05 11:00] VITALS: BP 126/51
--- NOTE | 2017-05-05 12:41 | PDOC ---
SUBJECTIVE ROS RINKU/ CKD III c/o IJ Cath area being sore but cannot distinguish it from Rt Shoulder pain CVS: no Orthopnea, no CP RESP: no SOB, no TRAYLOR GI: n Nausea, lilibeth Vomiting : no Dysuria, no Urgency OBJECTIVE Vital Signs Vital Signs Date Time Temp Pulse Resp B/P (MAP) Pulse Ox O2 Delivery O2 Flow Rate FiO2 05/05/17 11:00 98.8 60 20 126/51 (76) 99 Room Air 98.8 05/05/17 09:00 2.0 I & 0 Intake and Output 05/05/17 07:00 Intake Total 2220 ml Output Total 670 ml Balance 1550 ml Intake Oral 1020 ml IV Total 1200 ml Output Urine Total 670 ml PHYSICAL EXAM Physical Exam GEN: Awake, Oriented x 1-2 , In min distress from Rt sided pain EYES: Vision Unchanged, Conjunctiva Normal EN: No EN Drainage, Mucous Membranes moist NECK: no JVD, ++ JVP, Supple, no Thyromegaly CVS: S1S2, + Murmur, No Gallop, No Rub,no Edema RESP: no Rales, no Rhonchi,no Acc. Muscle Use GI: BS + ve, NO Bruit, Non Tender, Non Distended : no CVA tenderness, no Suprapubic Tenderness DIAGNOSIS/ASSESSMENT Assessment & Plan RINKU - ? Iverson - voiding trial today: CKD III - Current fluid and E-lyte status does not necessitate emergent need for dialysis. Will re-evaluate for dialysis in the am. Do not anticipate need for same given improvement in Creat. watch after D/c hope ^ed Na - change IVF to PPn forn ow lowish isabella - chck and correct mag prn ANEMIA; check Iron; Aranap as needed HTN: Current BP meds as reviewed. See orders for changes. Discussed Plan of Care with family [] at bedside [] over the phone Problems: COMMENT/RELEVANT DATA Meds Current Medications Medications (Trade) Dose Ordered Sig/Toñito Start Time Stop Time Status Last Admin Dose Admin Acetaminophen (Tylenol) 500 mg PRN Q6HRS PRN 05/01/17 08:00 Acetaminophen/ Hydrocodone Bitart (Lortab 5/325) 1 tab PRN Q4HRS PRN 05/01/17 08:00 Amino Acids/ Glycerin/ Electrolytes 1,000 ml @ 80 mls/hr [id number] 7/31/17 11:45 Apixaban (Eliquis) 5 mg BID 05/02/17 09:00 05/05/17 08:28 5 MG Atorvastatin Calcium (Lipitor) 20 mg QHS 05/02/17 21:00 05/04/17 20:36 20 MG Bisacodyl (Dulcolax Supp) 10 mg PRN DAILY PRN 05/05/17 10:30 Carvedilol (Coreg) 12.5 mg DAILY 05/02/17 09:00 05/05/17 08:29 12.5 MG Ceftriaxone Sodium 1 gm/ Sodium Chloride 50 ml @ 100 mls/hr Q24H 05/01/17 14:00 05/04/17 15:12 100 MLS/HR Docusate Sodium (Colace) 100 mg BID 05/05/17 11:00 Furosemide (Lasix) 20 mg 1X ONCE 05/02/17 09:30 05/02/17 09:40 DC Heparin Sodium (Porcine) (Heparin Sodium) 2,500 unit 1X ONCE 05/01/17 13:30 05/01/17 13:31 DC 05/01/17 13:30 2,800 UNIT Heparin Sodium/ Sodium Chloride 60 unit 1X ONCE 05/01/17 13:30 05/01/17 13:31 DC 05/01/17 14:03 60 UNIT Info (Anti-Coagulation Monitoring By Pharmacy) 1 each PRN DAILY PRN 05/02/17 13:00 05/04/17 09:45 1 EACH Info (PHARMACY MONITORING -- do not chart) 1 each PRN DAILY PRN 05/02/17 15:15 Lidocaine (Lidoderm) 1 patch DAILY 05/02/17 09:00 05/05/17 08:34 1 PATCH Lidocaine/Sodium Bicarbonate (Buffered Lidocaine 1%) 3 ml 1X ONCE 05/01/17 13:30 05/01/17 13:31 DC 05/01/17 14:03 3 ML Magnesium Hydroxide (Milk Of Magnesia) 2,400 mg PRN Q12HR PRN 05/05/17 10:30 Magnesium Citrate (Citroma) 296 ml 1X ONCE 05/04/17 12:00 05/04/17 12:01 DC Methylprednisolone Sodium Succinate (SOLU-Medrol 125MG VIAL) 125 mg 1X ONCE 05/02/17 09:30 05/02/17 09:40 DC Morphine Sulfate 2 mg PRN Q2HR PRN 05/01/17 01:30 05/05/17 08:30 2 MG Ondansetron HCl (Zofran) 4 mg PRN Q6HRS PRN 05/01/17 01:30 Polyethylene Glycol (miraLAX PACKET) 17 gm DAILY 05/04/17 12:00 05/05/17 08:34 17 GM Senna/Docusate Sodium (Senna Plus) 1 tab BID 05/05/17 21:00 Sodium Bicarbonate 150 meq/Sterile Water 1,150 ml @ 125 mls/hr Q9H12M 05/01/17 01:30 05/01/17 13:29 DC 05/01/17 02:28 125 MLS/HR Sodium Chloride 1,000 ml @ 1,000 mls/hr Q1H PRN 05/02/17 15:13 05/02/17 21:12 DC Sodium Chloride (Normal Saline Flush) 10 ml 1X PRN PRN 05/01/17 19:00 05/02/17 18:59 DC Sotalol HCl (Betapace) 120 mg DAILY 05/02/17 09:00 05/05/17 08:28 120 MG Tizanidine HCl (Zanaflex) 4 mg Q8HRS 05/02/17 09:30 05/05/17 05:16 4 MG Tramadol HCl (Ultram) 50 mg PRN Q6HRS PRN 05/02/17 09:00 05/04/17 04:37 50 MG Lab Laboratory Tests Test 05/05/17 08:20 Sodium Level 146 mmol/L (136-145) Potassium Level 3.9 mmol/L (3.5-5.1) Chloride Level 113 mmol/L (98-107) Carbon Dioxide Level 23 mmol/L (21-32) Anion Gap 10 (6-14) Blood Urea Nitrogen 22 mg/dL (8-26) Creatinine 2.2 mg/dL (0.7-1.3) Estimated GFR (Cockcroft-Gault) 35.7 Glucose Level 104 mg/dL (70-99) Calcium Level 7.9 mg/dL (8.5-10.1) LILA SUBRAMANIAN MD May 05, 2017 12:41
[2017-05-05] MEDS ORDERED: MAGNESIUM SULFATE 2GM 50 ML IV PRN (12:45)
[2017-05-05] MEDS: AMINO AC 3%/ELECTROLYTE/GLYCER 1,000 ML IV SCH (12:51)
[2017-05-05 13:49] LABS: % SAT IRON 10 % (15-34); IRON,SERUM 13 ug/dL (65-175)
[2017-05-05] MEDS: ANTI-COAG MONITOR BY PHARMACY. MC PRN (13:59)
--- NOTE | 2017-05-05 14:11 | PDOC ---
PROGRESS NOTES Chief Complaint Chief Complaint CC confusion 1. RINKU with CKD stage 5 2. AOCD 3. Metabolic acidosis with hyperkalemia better 4 Hyperkalemia with EKG changes resolved 5. Indwelling pace maker 6. Possible dementia, undiagnosed 7. HTN, CAD, CHF, Dsylipidemia, atrial fib, chronic stable UTI , SIRS constipation plan: fu with renal, got HD x2 times, Cr stable as CKD now on eliquis decrease coreg to 6.25mg bid, on sotalol too on hope, may dc it if ok with renal on ceftriaxone for uti add stool softner ptot SW FOR Possible snf History of Present Illness History of Present Illness cr better with hd constipation hope with ok urine output mild confusion to me, but as per nurse , pt has no dementia from his fever 102 Vitals Vitals Vital Signs Date Time Temp Pulse Resp B/P (MAP) Pulse Ox O2 Delivery O2 Flow Rate FiO2 05/05/17 13:15 Room Air 05/05/17 11:00 98.8 60 20 126/51 (76) 99 98.8 05/05/17 09:00 2.0 Physical Exam General: Alert, Cooperative Heart: Regular rate, Normal S1, Normal S2, No murmurs, Gallops Lungs: Clear, Other (No RRW) Abdomen: Normal bowel sounds, Soft, No tenderness, No hepatosplenomegaly, No masses Extremities: No clubbing, No cyanosis, No edema, Normal pulses, No tenderness/ swelling Skin: No rashes, No significant lesion Labs LABS Laboratory Tests Test 05/05/17 08:20 05/05/17 13:05 Sodium Level 146 mmol/L (136-145) Potassium Level 3.9 mmol/L (3.5-5.1) Chloride Level 113 mmol/L (98-107) Carbon Dioxide Level 23 mmol/L (21-32) Anion Gap 10 (6-14) Blood Urea Nitrogen 22 mg/dL (8-26) Creatinine 2.2 mg/dL (0.7-1.3) Estimated GFR (Cockcroft-Gault) 35.7 Glucose Level 104 mg/dL (70-99) Calcium Level 7.9 mg/dL (8.5-10.1) Ferritin 631 ng/mL (26-388) Reticulocyte Count (auto) 1.2 % (0.5-2.5) Iron Level 13 ug/dL (65-175) Total Iron Binding Capacity 135 ug/dL (250-450) Iron Saturation 10 % (15-34) Review of Systems Review of Systems no chills, sob or chest pain Comment Review of Relevant I have reviewed the following items maranda (where applicable) has been applied. Labs Laboratory Tests Test 05/04/17 07:15 05/05/17 08:20 05/05/17 13:05 Sodium Level 143 mmol/L (136-145) 146 mmol/L (136-145) Potassium Level 3.7 mmol/L (3.5-5.1) 3.9 mmol/L (3.5-5.1) Chloride Level 109 mmol/L (98-107) 113 mmol/L (98-107) Carbon Dioxide Level 26 mmol/L (21-32) 23 mmol/L (21-32) Anion Gap 8 (6-14) 10 (6-14) Blood Urea Nitrogen 26 mg/dL (8-26) 22 mg/dL (8-26) Creatinine 2.5 mg/dL (0.7-1.3) 2.2 mg/dL (0.7-1.3) Estimated GFR (Cockcroft-Gault) 30.8 35.7 Glucose Level 98 mg/dL (70-99) 104 mg/dL (70-99) Calcium Level 8.2 mg/dL (8.5-10.1) 7.9 mg/dL (8.5-10.1) Ferritin 631 ng/mL (26-388) Reticulocyte Count (auto) 1.2 % (0.5-2.5) Iron Level 13 ug/dL (65-175) Total Iron Binding Capacity 135 ug/dL (250-450) Iron Saturation 10 % (15-34) Laboratory Tests Test 05/05/17 08:20 05/05/17 13:05 Sodium Level 146 mmol/L (136-145) Potassium Level 3.9 mmol/L (3.5-5.1) Chloride Level 113 mmol/L (98-107) Carbon Dioxide Level 23 mmol/L (21-32) Anion Gap 10 (6-14) Blood Urea Nitrogen 22 mg/dL (8-26) Creatinine 2.2 mg/dL (0.7-1.3) Estimated GFR (Cockcroft-Gault) 35.7 Glucose Level 104 mg/dL (70-99) Calcium Level 7.9 mg/dL (8.5-10.1) Ferritin 631 ng/mL (26-388) Reticulocyte Count (auto) 1.2 % (0.5-2.5) Iron Level 13 ug/dL (65-175) Total Iron Binding Capacity 135 ug/dL (250-450) Iron Saturation 10 % (15-34) Medications Current Medications Furosemide (Lasix) 40 mg 1X ONCE IVP Last administered on 05/01/17 02:19; Start 05/01/17 at 01:30; Stop 05/01/17 at 01:31; Status DC Ondansetron HCl (Zofran) 4 mg PRN Q6HRS PRN IV NAUSEA/VOMITING; Start 05/01/17 at 01:30 Morphine Sulfate 2 mg PRN Q2HR PRN IV PAIN Last administered on 05/05/17 13:15 ; Start 05/01/17 at 01:30 Sodium Bicarbonate 150 meq/Sterile Water 1,150 ml @ 125 mls/hr Q9H12M IV Last administered on 05/01/17 02:28; Start 05/01/17 at 01:30; Stop 05/01/17 at 13:29 ; Status DC Acetaminophen/ Hydrocodone Bitart (Lortab 5/325) 1 tab PRN Q4HRS PRN PO SEVERE PAIN; Start 05/01/17 at 08:00 Acetaminophen (Tylenol) 500 mg PRN Q6HRS PRN PO MILD PAIN / TEMP; Start at 08:00 Heparin Sodium (Porcine) (Heparin Sodium) 10,000 unit STK-MED ONCE .ROUTE ; Start 05/01/17 at 13:21; Stop 05/01/17 at 13:22; Status DC Lidocaine/Sodium Bicarbonate (Buffered Lidocaine 1%) 20 ml STK-MED ONCE IJ ; Start 05/01/17 at 13:22; Stop 05/01/17 at 13:23; Status DC Heparin Sodium/ Sodium Chloride 500 ml @ As Directed STK-MED ONCE .ROUTE ; Start 05/01/17 at 13:22; Stop 05/01/17 at 13:23; Status DC Lidocaine/Sodium Bicarbonate (Buffered Lidocaine 1%) 3 ml 1X ONCE IJ Last administered on 05/01/17 14:03; Start 05/01/17 at 13:30; Stop 05/01/17 at 13:31 ; Status DC Heparin Sodium/ Sodium Chloride 60 unit 1X ONCE IV Last administered on 14:03; Start 05/01/17 at 13:30; Stop 05/01/17 at 13:31; Status DC Heparin Sodium (Porcine) (Heparin Sodium) 2,500 unit 1X ONCE INT CAT Last administered on 05/01/17 13:30; Start 05/01/17 at 13:30; Stop 05/01/17 at 13:31 ; Status DC Sodium Chloride 1,000 ml @ 100 mls/hr Q10H IV Last administered on 05/05/17 08:00; Start 05/01/17 at 14:00; Stop 05/05/17 at 11:16; Status DC Ceftriaxone Sodium 1 gm/ Sodium Chloride 50 ml @ 100 mls/hr Q24H IV Last administered on 05/04/17 15:12; Start 05/01/17 at 14:00 Sodium Chloride 1,000 ml @ 1,000 mls/hr Q1H PRN IV hypotension; Start 05/01/17 at 18:50; Stop 05/02/17 at 00:49; Status DC Sodium Chloride (Normal Saline Flush) 10 ml 1X PRN PRN IV AP catheter pack; Start 05/01/17 at 19:00; Stop 05/02/17 at 18:59; Status DC Sodium Chloride (Normal Saline Flush) 10 ml 1X PRN PRN IV TECHNICAL SUPPORT ASSISTANT catheter pack; Start 05/01/17 at 19:00; Stop 05/02/17 at 18:59; Status DC Sodium Chloride 1,000 ml @ 400 mls/hr Q2H30M PRN IV PATENCY; Start 05/01/17 at 18:50; Stop 05/02/17 at 06:49; Status DC Info (PHARMACY MONITORING -- do not chart) 1 each PRN DAILY PRN MC SEE COMMENTS ; Start 05/01/17 at 19:00; Status UNV Info (PHARMACY MONITORING -- do not chart) 1 each PRN DAILY PRN MC SEE COMMENTS ; Start 05/01/17 at 19:00; Stop 05/03/17 at 07:59; Status DC Apixaban (Eliquis) 5 mg BID PO Last administered on 05/05/17 08:28; Start at 09:00 Atorvastatin Calcium (Lipitor) 20 mg QHS PO Last administered on 05/04/17 20: 36; Start 05/02/17 at 21:00 Carvedilol (Coreg) 12.5 mg DAILY PO Last administered on 05/05/17 08:29; Start 05/02/17 at 09:00 Lidocaine (Lidoderm) 1 patch DAILY TP Last administered on 05/05/17 08:34; Start 05/02/17 at 09:00 Sotalol HCl (Betapace) 120 mg DAILY PO Last administered on 05/05/17 08:28; Start 05/02/17 at 09:00 Tizanidine HCl (Zanaflex) 4 mg Q8HRS PO Last administered on 05/05/17 05:16; Start 05/02/17 at 09:30 Tramadol HCl (Ultram) 50 mg PRN Q6HRS PRN PO MODERATE PAIN Last administered on 05/04/17 04:37; Start 05/02/17 at 09:00 Furosemide (Lasix) 20 mg 1X ONCE IVP ; Start 05/02/17 at 09:30; Stop 05/02/17 at 09:40; Status DC Methylprednisolone Sodium Succinate (SOLU-Medrol 125MG VIAL) 125 mg 1X ONCE IV ; Start 05/02/17 at 09:30; Stop 05/02/17 at 09:40; Status DC Info (Anti-Coagulation Monitoring By Pharmacy) 1 each PRN DAILY PRN MC SEE COMMENTS Last administered on 05/05/17 13:59; Start 05/02/17 at 13:00 Sodium Chloride 1,000 ml @ 1,000 mls/hr Q1H PRN IV hypotension; Start 05/02/17 at 15:13; Stop 05/02/17 at 21:12; Status DC Info (PHARMACY MONITORING -- do not chart) 1 each PRN DAILY PRN MC SEE COMMENTS ; Start 05/02/17 at 15:15 Docusate Sodium (Colace) 100 mg DAILY PO Last administered on 05/05/17 08:29; Start 05/03/17 at 18:00 Magnesium Citrate (Citroma) 296 ml 1X ONCE PO ; Start 05/04/17 at 12:00; Stop 05/04/17 at 12:01; Status DC Polyethylene Glycol (miraLAX PACKET) 17 gm DAILY PO Last administered on 08:34; Start 05/04/17 at 12:00 Senna/Docusate Sodium (Senna Plus) 1 tab BID PO ; Start 05/05/17 at 21:00 Docusate Sodium (Colace) 100 mg BID PO Last administered on 05/05/17 12:51; Start 05/05/17 at 11:00 Magnesium Hydroxide (Milk Of Magnesia) 2,400 mg PRN Q12HR PRN PO CONSTIPATION; Start 05/05/17 at 10:30 Bisacodyl (Dulcolax Supp) 10 mg PRN DAILY PRN AR CONSTIPATION; Start 05/05/17 at 10:30 Amino Acids/ Glycerin/ Electrolytes 1,000 ml @ 80 mls/hr [id number] IV Last administered on 05/05/17 12:51; Start 05/05/17 at 11:45 Magnesium Sulfate/ Dextrose 50 ml @ 25 mls/hr PRN DAILY PRN IV for Mag < 1.7 on am labs; Start 05/05/17 at 12:45 Active Scripts Active Reported Tizanidine Hcl 4 Mg Tablet 1 Tab PO Q8HRS Spironolactone 25 Mg Tablet 1 Tab PO DAILY Atorvastatin Calcium 20 Mg Tablet 1 Tab PO DAILY Torsemide 20 Mg Tablet 50 Mg PO DAILY Carvedilol 12.5 Mg Tablet 1 Tab PO DAILY Sotalol (Sotalol Hcl) 80 Mg Tablet 120 Mg PO DAILY Tramadol Hcl 50 Mg Tablet 50 Mg PO Q6H PRN Lisinopril 5 Mg Tablet 1 Tab PO DAILY Eliquis (Apixaban) 5 Mg Tablet 5 Mg PO DAILY Lidocaine 1 Each Adh..patch 1 Each TP Vitals/I & O Vital Sign - Last 24 Hours 05/04/17 05/04/17 05/04/17 05/04/17 15:14 19:00 20:06 23:00 Temp 98.1 102.4 99.1 98.1 102.4 99.1 Pulse 56 70 69 Resp 18 18 18 B/P (MAP) 112/50 (70) 133/63 (86) 133/55 (81) Pulse Ox 94 98 94 O2 Delivery Nasal Cannula Nasal Cannula Room Air Nasal Cannula O2 Flow Rate 2.0 2.0 2.0 05/05/17 05/05/17 05/05/17 05/05/17 03:00 07:00 08:20 08:28 Temp 98.9 97.8 98.9 97.8 Pulse 75 80 80 Resp 18 20 B/P (MAP) 150/62 (91) 127/58 (81) 127/58 Pulse Ox 91 96 O2 Delivery Nasal Cannula Room Air Room Air O2 Flow Rate 2.0 2.0 05/05/17 05/05/17 05/05/17 05/05/17 08:29 08:30 09:00 11:00 Temp 98.8 98.8 Pulse 80 60 Resp 20 B/P (MAP) 127/58 126/51 (76) Pulse Ox 96 96 99 O2 Delivery Room Air Room Air Room Air O2 Flow Rate 2.0 2.0 05/05/17 13:15 O2 Delivery Room Air Intake and Output 05/04/17 05/04/17 05/05/17 15:00 23:00 07:00 Intake Total 300 ml 600 ml 1320 ml Output Total 550 ml 120 ml Balance 300 ml 50 ml 1200 ml LAXMI JIMENEZ MD May 05, 2017 14:10
[2017-05-05 15:00] VITALS: BP 130/64
[2017-05-05] MEDS: CARVEDILOL 6.25 MG TABLET. PO SCH (18:08)
[2017-05-05 19:00] VITALS: BP 117/54
[2017-05-05] MEDS ORDERED: HEPARIN PF for SUB-Q USE 5,000 UNIT/0.5 ML VIAL. SQ SCH (22:00)
[2017-05-05] MEDS: ATORVASTATIN CALCIUM 20 MG TABLET PO SCH (22:18)
[2017-05-05] MEDS: SENNOSIDES/DOCUSATE 8.6/50MG TABLET. PO SCH (22:18)
[2017-05-05 23:00] VITALS: BP 97/50
[2017-05-06 03:00] VITALS: BP 110/69
[2017-05-06 04:01] LABS: BASO # 0.1 x10^3/uL (0.0-0.2); BASO % 1 % (0-3); EOS % 2 % (0-3); HEMOGLOBIN 7.1 g/dL (13.0-17.5); LYMPH # 1.1 x10^3/uL (1.0-4.8); LYMPH % 13 % (24-48); MEAN CORPUSCULAR HEMOGLOBIN 29 pg (25-35); MEAN CORPUSCULAR HGB CONC 32 g/dL (31-37); MEAN CORPUSCULAR VOLUME 90 fL (79-100); MONO % 10 % (0-9); NEUT % 74 % (31-73); PLATELET COUNT 141 x10^3/uL (140-400); RED BLOOD COUNT 2.45 x10^6/uL (4.30-5.70); RED CELL DISTRIBUTION WIDTH 15.2 % (11.5-14.5); WHITE BLOOD COUNT 8.6 x10^3/uL (4.0-11.0)
[2017-05-06 04:22] LABS: ALBUMIN 1.9 g/dL (3.4-5.0); CALCIUM 8.2 mg/dL (8.5-10.1); GFR 39.8; MAGNESIUM 1.7 mg/dL (1.8-2.4); PHOSPHORUS 2.2 mg/dL (2.6-4.7)
[2017-05-06] MEDS: tiZANidine 4 MG TABLET. PO SCH ×3 (05:37→22:57)
[2017-05-06] MEDS: AMINO AC 3%/ELECTROLYTE/GLYCER 1,000 ML IV SCH (05:38)
[2017-05-06 07:00] VITALS: BP 114/50
[2017-05-06] MEDS ORDERED: MAGNESIUM SULFATE 2GM 50 ML IV ONE (08:45)
[2017-05-06] MEDS: DOCUSATE SODIUM 100 MG CAPSULE. PO SCH ×3 (09:00→21:00)
[2017-05-06] MEDS: APIXABAN 5 MG TABLET. PO SCH ×2 (09:35→22:57)
[2017-05-06] MEDS: POLYETHYLENE GLYCOL 3350 17 GM PACKET. PO SCH (09:35)
[2017-05-06] MEDS: SENNOSIDES/DOCUSATE 8.6/50MG TABLET. PO SCH ×2 (09:35→22:57)
[2017-05-06] MEDS: SOTALOL 80 MG TABLET. PO SCH (09:37)
[2017-05-06] MEDS: CARVEDILOL 6.25 MG TABLET. PO SCH (09:38)
[2017-05-06] MEDS: LIDOCAINE (700MG/PATCH) PATCH. TP SCH (09:45)
[2017-05-06 11:00] VITALS: BP 110/64
[2017-05-06] MEDS ORDERED: POTASSIUM PHOSPHATE DIBASIC 13.6 MMOL in IV NORMAL SALINE 100ML 100 ML IV ONE (11:00)
[2017-05-06] MEDS ORDERED: SODIUM PHOSPHATE 20 MMOL in IV DEXTROSE 5% 250 ML IV ONE (11:00)
--- NOTE | 2017-05-06 11:01 | PDOC ---
SUBJECTIVE ROS RINKU DOing better after HD Cath removed CVS: no Orthopnea, no CP RESP: no SOB, no TRAYLOR GI: no Nausea, no Vomiting : no Dysuria, no Urgency OBJECTIVE Vital Signs Vital Signs Date Time Temp Pulse Resp B/P (MAP) Pulse Ox O2 Delivery O2 Flow Rate FiO2 05/06/17 09:38 59 114/50 05/06/17 07:00 98.8 18 94 Room Air 98.8 05/05/17 18:11 2.0 I & 0 Intake and Output 05/06/17 07:00 Intake Total 1910 ml Output Total 950 ml Balance 960 ml Intake Oral 1910 ml Output Urine Total 950 ml # Voids 1 # Bowel Movements 3 PHYSICAL EXAM Physical Exam GEN: Awake, Oriented x 1? ; somewhat drowsy , In no current distress EYES: Vision Unchanged, Conjunctiva Normal EN: No EN Drainage, Mucous Membranes moist NECK: no JVD, + JVP, Supple, no Thyromegaly CVS: S1S2, + Murmur, No Gallop, No Rub,no Edema RESP: no Rales, no Rhonchi,no Acc. Muscle Use GI: BS + ve, NO Bruit, Non Tender, Non Distended : no CVA tenderness, no Suprapubic Tenderness DIAGNOSIS/ASSESSMENT Assessment & Plan RINKU - improving. UO is good without hope CKD III - Current fluid and E-lyte status does not necessitate emergent need for dialysis. Will re-evaluate for dialysis in the am. Do not anticipate need for same given improvement in Creat. watch after D/c hope ^ed Na - slightly better after changing IVF to PPN lowish isabella - reval after correcting mag; ALb is very low Fe def ANEMIA: (hgb dropped today) IV Iron; Aranesp as needed - ? GI Eval for Bl Loss - defer to primary team HypoALbuminemia - Pt not eating well currently so will ct PPN for now; some due to proteinruia too Proteinruia OA - check Ratio Low Phos - replace IV :Low Mag - IV Mag ongoing HTN: Current BP meds as reviewed. See orders for changes. Drowsiness - unclear etio - check UA for UTI COMMENT/RELEVANT DATA Meds Current Medications Medications (Trade) Dose Ordered Sig/Toñito Start Time Stop Time Status Last Admin Dose Admin Acetaminophen (Tylenol) 500 mg PRN Q6HRS PRN 05/01/17 08:00 Acetaminophen/ Hydrocodone Bitart (Lortab 5/325) 1 tab PRN Q4HRS PRN 05/01/17 08:00 Amino Acids/ Glycerin/ Electrolytes 1,000 ml @ 80 mls/hr [id number] 05/05/17 11:45 05/06/17 05:38 80 MLS/HR Apixaban (Eliquis) 5 mg BID 05/02/17 09:00 05/06/17 09:35 5 MG Atorvastatin Calcium (Lipitor) 20 mg QHS 05/02/17 21:00 05/05/17 22:18 20 MG Bisacodyl (Dulcolax Supp) 10 mg PRN DAILY PRN 05/05/17 10:30 05/05/17 15:33 10 MG Carvedilol (Coreg) 6.25 mg BIDWMEALS 05/05/17 17:00 05/06/17 09:38 6.25 MG Ceftriaxone Sodium 1 gm/ Sodium Chloride 50 ml @ 100 mls/hr Q24H 05/01/17 14:00 05/05/17 15:33 100 MLS/HR Docusate Sodium (Colace) 100 mg BID 05/05/17 11:00 05/05/17 12:51 100 MG Furosemide (Lasix) 20 mg 1X ONCE 05/02/17 09:30 05/02/17 09:40 DC Heparin Sodium (Porcine) (Heparin Sodium) 2,500 unit 1X ONCE 05/01/17 13:30 05/01/17 13:31 DC 05/01/17 13:30 2,800 UNIT Heparin Sodium (Porcine) (Heparin Sq) 5,000 unit Q8HRS 05/05/17 22:00 05/05/17 22:00 DC Heparin Sodium/ Sodium Chloride 60 unit 1X ONCE 05/01/17 13:30 05/01/17 13:31 DC 05/01/17 14:03 60 UNIT Info (Anti-Coagulation Monitoring By Pharmacy) 1 each PRN DAILY PRN 05/02/17 13:00 05/05/17 14:06 DC 05/05/17 13:59 1 EACH Info (PHARMACY MONITORING -- do not chart) 1 each PRN DAILY PRN 05/02/17 15:15 Lidocaine (Lidoderm) 1 patch DAILY 05/02/17 09:00 05/06/17 09:45 1 PATCH Lidocaine/Sodium Bicarbonate (Buffered Lidocaine 1%) 3 ml 1X ONCE 05/01/17 13:30 05/01/17 13:31 DC 05/01/17 14:03 3 ML Magnesium Hydroxide (Milk Of Magnesia) 2,400 mg PRN Q12HR PRN 05/05/17 10:30 Magnesium Citrate (Citroma) 296 ml 1X ONCE 05/04/17 12:00 05/04/17 12:01 DC Magnesium Sulfate/ Dextrose 50 ml @ 25 mls/hr 1X ONCE 05/06/17 08:45 05/06/17 10:44 DC 05/06/17 09:39 25 MLS/HR Methylprednisolone Sodium Succinate (SOLU-Medrol 125MG VIAL) 125 mg 1X ONCE 05/02/17 09:30 05/02/17 09:40 DC Morphine Sulfate 2 mg PRN Q2HR PRN 05/01/17 01:30 05/05/17 18:11 2 MG Ondansetron HCl (Zofran) 4 mg PRN Q6HRS PRN 05/01/17 01:30 Polyethylene Glycol (miraLAX PACKET) 17 gm DAILY 05/04/17 12:00 05/06/17 09:35 17 GM Senna/Docusate Sodium (Senna Plus) 1 tab BID 05/05/17 21:00 05/06/17 09:35 1 TAB Sodium Bicarbonate 150 meq/Sterile Water 1,150 ml @ 125 mls/hr Q9H12M 05/01/17 01:30 05/01/17 13:29 DC 05/01/17 02:28 125 MLS/HR Sodium Chloride 1,000 ml @ 1,000 mls/hr Q1H PRN 05/02/17 15:13 05/02/17 21:12 DC Sodium Chloride (Normal Saline Flush) 10 ml 1X PRN PRN 05/01/17 19:00 05/02/17 18:59 DC Sotalol HCl (Betapace) 120 mg DAILY 05/02/17 09:00 05/06/17 09:37 120 MG Tizanidine HCl (Zanaflex) 4 mg Q8HRS 05/02/17 09:30 05/06/17 05:37 4 MG Tramadol HCl (Ultram) 50 mg PRN Q6HRS PRN 05/02/17 09:00 05/04/17 04:37 50 MG Lab Laboratory Tests Test 05/05/17 13:05 05/06/17 03:40 05/06/17 04:15 Reticulocyte Count (auto) 1.2 % (0.5-2.5) Iron Level 13 ug/dL (65-175) Total Iron Binding Capacity 135 ug/dL (250-450) Iron Saturation 10 % (15-34) White Blood Count 8.6 x10^3/uL (4.0-11.0) Red Blood Count 2.45 x10^6/uL (4.30-5.70) Hemoglobin 7.1 g/dL (13.0-17.5) Hematocrit 22.0 % (39.0-53.0) Mean Corpuscular Volume 90 fL (79-100) Mean Corpuscular Hemoglobin 29 pg (25-35) Mean Corpuscular Hemoglobin Concent 32 g/dL (31-37) Red Cell Distribution Width 15.2 % (11.5-14.5) Platelet Count 141 x10^3/uL (140-400) Neutrophils (%) (Auto) 74 % (31-73) Lymphocytes (%) (Auto) 13 % (24-48) Monocytes (%) (Auto) 10 % (0-9) Eosinophils (%) (Auto) 2 % (0-3) Basophils (%) (Auto) 1 % (0-3) Neutrophils # (Auto) 6.4 x10^3uL (1.8-7.7) Lymphocytes # (Auto) 1.1 x10^3/uL (1.0-4.8) Monocytes # (Auto) 0.9 x10^3/uL (0.0-1.1) Eosinophils # (Auto) 0.2 x10^3/uL (0.0-0.7) Basophils # (Auto) 0.1 x10^3/uL (0.0-0.2) Sodium Level 145 mmol/L (136-145) Potassium Level 4.0 mmol/L (3.5-5.1) Chloride Level 111 mmol/L (98-107) Carbon Dioxide Level 25 mmol/L (21-32) Anion Gap 9 (6-14) Blood Urea Nitrogen 24 mg/dL (8-26) Creatinine 2.0 mg/dL (0.7-1.3) Estimated GFR (Cockcroft-Gault) 39.8 Glucose Level 104 mg/dL (70-99) Calcium Level 8.2 mg/dL (8.5-10.1) Phosphorus Level 2.2 mg/dL (2.6-4.7) Magnesium Level 1.7 mg/dL (1.8-2.4) Albumin 1.9 g/dL (3.4-5.0) LILA SUBRAMANIAN MD May 06, 2017 11:01
--- NOTE | 2017-05-06 12:53 | PDOC ---
PROGRESS NOTES Chief Complaint Chief Complaint CC confusion 1. RINKU with CKD stage 5 2. AOCD 3. Metabolic acidosis with hyperkalemia better 4 Hyperkalemia with EKG changes resolved 5. Indwelling pace maker 6. Possible dementia, undiagnosed 7. HTN, CAD, CHF, Dsylipidemia, atrial fib, chronic stable UTI , SIRS constipation chronic right shoulder pain normacytic anemia, low iron, ckd hypomagnesemia plan: fu with renal, got HD x2 times, Cr stable as CKD now on eliquis decrease coreg to 3.125mg bid, on sotalol too on ceftriaxone for uti add stool softner dr. Joy consult for right shoulder pain replete iron, mag, check vitb12, fa, fobt ptot SW FOR Possible snf History of Present Illness History of Present Illness cr better with hd constipation better hope with ok urine output, removed on 05/05 still mild confusion to me, but as per nurse , pt has no dementia from his fever 102 resolved lower hb, low iron, no active bleeding low mag cont right shoulder pain Vitals Vitals Vital Signs Date Time Temp Pulse Resp B/P (MAP) Pulse Ox O2 Delivery O2 Flow Rate FiO2 05/06/17 09:38 59 114/50 05/06/17 07:00 98.8 18 94 Room Air 98.8 05/05/17 18:11 2.0 Physical Exam General: Alert, Cooperative Heart: Regular rate, Normal S1, Normal S2, No murmurs, Gallops Lungs: Clear, Other (No RRW) Abdomen: Normal bowel sounds, Soft, No tenderness, No hepatosplenomegaly, No masses Extremities: No clubbing, No cyanosis, No edema, Normal pulses, No tenderness/ swelling Skin: No rashes, No significant lesion Labs LABS Laboratory Tests Test 05/05/17 13:05 05/06/17 03:40 05/06/17 04:15 Reticulocyte Count (auto) 1.2 % (0.5-2.5) Iron Level 13 ug/dL (65-175) Total Iron Binding Capacity 135 ug/dL (250-450) Iron Saturation 10 % (15-34) White Blood Count 8.6 x10^3/uL (4.0-11.0) Red Blood Count 2.45 x10^6/uL (4.30-5.70) Hemoglobin 7.1 g/dL (13.0-17.5) Hematocrit 22.0 % (39.0-53.0) Mean Corpuscular Volume 90 fL (79-100) Mean Corpuscular Hemoglobin 29 pg (25-35) Mean Corpuscular Hemoglobin Concent 32 g/dL (31-37) Red Cell Distribution Width 15.2 % (11.5-14.5) Platelet Count 141 x10^3/uL (140-400) Neutrophils (%) (Auto) 74 % (31-73) Lymphocytes (%) (Auto) 13 % (24-48) Monocytes (%) (Auto) 10 % (0-9) Eosinophils (%) (Auto) 2 % (0-3) Basophils (%) (Auto) 1 % (0-3) Neutrophils # (Auto) 6.4 x10^3uL (1.8-7.7) Lymphocytes # (Auto) 1.1 x10^3/uL (1.0-4.8) Monocytes # (Auto) 0.9 x10^3/uL (0.0-1.1) Eosinophils # (Auto) 0.2 x10^3/uL (0.0-0.7) Basophils # (Auto) 0.1 x10^3/uL (0.0-0.2) Sodium Level 145 mmol/L (136-145) Potassium Level 4.0 mmol/L (3.5-5.1) Chloride Level 111 mmol/L (98-107) Carbon Dioxide Level 25 mmol/L (21-32) Anion Gap 9 (6-14) Blood Urea Nitrogen 24 mg/dL (8-26) Creatinine 2.0 mg/dL (0.7-1.3) Estimated GFR (Cockcroft-Gault) 39.8 Glucose Level 104 mg/dL (70-99) Calcium Level 8.2 mg/dL (8.5-10.1) Phosphorus Level 2.2 mg/dL (2.6-4.7) Magnesium Level 1.7 mg/dL (1.8-2.4) Albumin 1.9 g/dL (3.4-5.0) Review of Systems Review of Systems no fever, chills, sob or chest pain Comment Review of Relevant I have reviewed the following items maranda (where applicable) has been applied. Labs Laboratory Tests Test 05/05/17 08:20 05/05/17 13:05 05/06/17 03:40 05/06/17 04:15 Sodium Level 146 mmol/L (136-145) 145 mmol/L (136-145) Potassium Level 3.9 mmol/L (3.5-5.1) 4.0 mmol/L (3.5-5.1) Chloride Level 113 mmol/L (98-107) 111 mmol/L (98-107) Carbon Dioxide Level 23 mmol/L (21-32) 25 mmol/L (21-32) Anion Gap 10 (6-14) 9 (6-14) Blood Urea Nitrogen 22 mg/dL (8-26) 24 mg/dL (8-26) Creatinine 2.2 mg/dL (0.7-1.3) 2.0 mg/dL (0.7-1.3) Estimated GFR (Cockcroft-Gault) 35.7 39.8 Glucose Level 104 mg/dL (70-99) 104 mg/dL (70-99) Calcium Level 7.9 mg/dL (8.5-10.1) 8.2 mg/dL (8.5-10.1) Ferritin 631 ng/mL (26-388) Reticulocyte Count (auto) 1.2 % (0.5-2.5) Iron Level 13 ug/dL (65-175) Total Iron Binding Capacity 135 ug/dL (250-450) Iron Saturation 10 % (15-34) White Blood Count 8.6 x10^3/uL (4.0-11.0) Red Blood Count 2.45 x10^6/uL (4.30-5.70) Hemoglobin 7.1 g/dL (13.0-17.5) Hematocrit 22.0 % (39.0-53.0) Mean Corpuscular Volume 90 fL (79-100) Mean Corpuscular Hemoglobin 29 pg (25-35) Mean Corpuscular Hemoglobin Concent 32 g/dL (31-37) Red Cell Distribution Width 15.2 % (11.5-14.5) Platelet Count 141 x10^3/uL (140-400) Neutrophils (%) (Auto) 74 % (31-73) Lymphocytes (%) (Auto) 13 % (24-48) Monocytes (%) (Auto) 10 % (0-9) Eosinophils (%) (Auto) 2 % (0-3) Basophils (%) (Auto) 1 % (0-3) Neutrophils # (Auto) 6.4 x10^3uL (1.8-7.7) Lymphocytes # (Auto) 1.1 x10^3/uL (1.0-4.8) Monocytes # (Auto) 0.9 x10^3/uL (0.0-1.1) Eosinophils # (Auto) 0.2 x10^3/uL (0.0-0.7) Basophils # (Auto) 0.1 x10^3/uL (0.0-0.2) Phosphorus Level 2.2 mg/dL (2.6-4.7) Magnesium Level 1.7 mg/dL (1.8-2.4) Albumin 1.9 g/dL (3.4-5.0) Laboratory Tests Test 05/05/17 13:05 05/06/17 03:40 05/06/17 04:15 Reticulocyte Count (auto) 1.2 % (0.5-2.5) Iron Level 13 ug/dL (65-175) Total Iron Binding Capacity 135 ug/dL (250-450) Iron Saturation 10 % (15-34) White Blood Count 8.6 x10^3/uL (4.0-11.0) Red Blood Count 2.45 x10^6/uL (4.30-5.70) Hemoglobin 7.1 g/dL (13.0-17.5) Hematocrit 22.0 % (39.0-53.0) Mean Corpuscular Volume 90 fL (79-100) Mean Corpuscular Hemoglobin 29 pg (25-35) Mean Corpuscular Hemoglobin Concent 32 g/dL (31-37) Red Cell Distribution Width 15.2 % (11.5-14.5) Platelet Count 141 x10^3/uL (140-400) Neutrophils (%) (Auto) 74 % (31-73) Lymphocytes (%) (Auto) 13 % (24-48) Monocytes (%) (Auto) 10 % (0-9) Eosinophils (%) (Auto) 2 % (0-3) Basophils (%) (Auto) 1 % (0-3) Neutrophils # (Auto) 6.4 x10^3uL (1.8-7.7) Lymphocytes # (Auto) 1.1 x10^3/uL (1.0-4.8) Monocytes # (Auto) 0.9 x10^3/uL (0.0-1.1) Eosinophils # (Auto) 0.2 x10^3/uL (0.0-0.7) Basophils # (Auto) 0.1 x10^3/uL (0.0-0.2) Sodium Level 145 mmol/L (136-145) Potassium Level 4.0 mmol/L (3.5-5.1) Chloride Level 111 mmol/L (98-107) Carbon Dioxide Level 25 mmol/L (21-32) Anion Gap 9 (6-14) Blood Urea Nitrogen 24 mg/dL (8-26) Creatinine 2.0 mg/dL (0.7-1.3) Estimated GFR (Cockcroft-Gault) 39.8 Glucose Level 104 mg/dL (70-99) Calcium Level 8.2 mg/dL (8.5-10.1) Phosphorus Level 2.2 mg/dL (2.6-4.7) Magnesium Level 1.7 mg/dL (1.8-2.4) Albumin 1.9 g/dL (3.4-5.0) Medications Current Medications Furosemide (Lasix) 40 mg 1X ONCE IVP Last administered on 05/01/17 02:19; Start 05/01/17 at 01:30; Stop 05/01/17 at 01:31; Status DC Ondansetron HCl (Zofran) 4 mg PRN Q6HRS PRN IV NAUSEA/VOMITING; Start 05/01/17 at 01:30 Morphine Sulfate 2 mg PRN Q2HR PRN IV PAIN Last administered on 05/05/17 18:11 ; Start 05/01/17 at 01:30 Sodium Bicarbonate 150 meq/Sterile Water 1,150 ml @ 125 mls/hr Q9H12M IV Last administered on 05/01/17 02:28; Start 05/01/17 at 01:30; Stop 05/01/17 at 13:29 ; Status DC Acetaminophen/ Hydrocodone Bitart (Lortab 5/325) 1 tab PRN Q4HRS PRN PO SEVERE PAIN; Start 05/01/17 at 08:00 Acetaminophen (Tylenol) 500 mg PRN Q6HRS PRN PO MILD PAIN / TEMP; Start at 08:00 Heparin Sodium (Porcine) (Heparin Sodium) 10,000 unit STK-MED ONCE .ROUTE ; Start 05/01/17 at 13:21; Stop 05/01/17 at 13:22; Status DC Lidocaine/Sodium Bicarbonate (Buffered Lidocaine 1%) 20 ml STK-MED ONCE IJ ; Start 05/01/17 at 13:22; Stop 05/01/17 at 13:23; Status DC Heparin Sodium/ Sodium Chloride 500 ml @ As Directed STK-MED ONCE .ROUTE ; Start 05/01/17 at 13:22; Stop 05/01/17 at 13:23; Status DC Lidocaine/Sodium Bicarbonate (Buffered Lidocaine 1%) 3 ml 1X ONCE IJ Last administered on 05/01/17 14:03; Start 05/01/17 at 13:30; Stop 05/01/17 at 13:31 ; Status DC Heparin Sodium/ Sodium Chloride 60 unit 1X ONCE IV Last administered on 14:03; Start 05/01/17 at 13:30; Stop 05/01/17 at 13:31; Status DC Heparin Sodium (Porcine) (Heparin Sodium) 2,500 unit 1X ONCE INT CAT Last administered on 05/01/17 13:30; Start 05/01/17 at 13:30; Stop 05/01/17 at 13:31 ; Status DC Sodium Chloride 1,000 ml @ 100 mls/hr Q10H IV Last administered on 05/05/17 08:00; Start 05/01/17 at 14:00; Stop 05/05/17 at 11:16; Status DC Ceftriaxone Sodium 1 gm/ Sodium Chloride 50 ml @ 100 mls/hr Q24H IV Last administered on 05/05/17 15:33; Start 05/01/17 at 14:00 Sodium Chloride 1,000 ml @ 1,000 mls/hr Q1H PRN IV hypotension; Start 05/01/17 at 18:50; Stop 05/02/17 at 00:49; Status DC Sodium Chloride (Normal Saline Flush) 10 ml 1X PRN PRN IV AP catheter pack; Start 05/01/17 at 19:00; Stop 05/02/17 at 18:59; Status DC Sodium Chloride (Normal Saline Flush) 10 ml 1X PRN PRN IV SUPERVISOR PACKING catheter pack; Start 05/01/17 at 19:00; Stop 05/02/17 at 18:59; Status DC Sodium Chloride 1,000 ml @ 400 mls/hr Q2H30M PRN IV PATENCY; Start 05/01/17 at 18:50; Stop 05/02/17 at 06:49; Status DC Info (PHARMACY MONITORING -- do not chart) 1 each PRN DAILY PRN MC SEE COMMENTS ; Start 05/01/17 at 19:00; Status UNV Info (PHARMACY MONITORING -- do not chart) 1 each PRN DAILY PRN MC SEE COMMENTS ; Start 05/01/17 at 19:00; Stop 05/03/17 at 07:59; Status DC Apixaban (Eliquis) 5 mg BID PO Last administered on 05/06/17 09:35; Start 05/02 at 09:00 Atorvastatin Calcium (Lipitor) 20 mg QHS PO Last administered on 05/05/17 22: 18; Start 05/02/17 at 21:00 Carvedilol (Coreg) 12.5 mg DAILY PO Last administered on 05/05/17 08:29; Start 05/02/17 at 09:00; Stop 05/05/17 at 14:06; Status DC Lidocaine (Lidoderm) 1 patch DAILY TP Last administered on 05/06/17 09:45; Start 05/02/17 at 09:00 Sotalol HCl (Betapace) 120 mg DAILY PO Last administered on 05/06/17 09:37; Start 05/02/17 at 09:00 Tizanidine HCl (Zanaflex) 4 mg Q8HRS PO Last administered on 05/06/17 05:37; Start 05/02/17 at 09:30 Tramadol HCl (Ultram) 50 mg PRN Q6HRS PRN PO MODERATE PAIN Last administered on 05/04/17 04:37; Start 05/02/17 at 09:00 Furosemide (Lasix) 20 mg 1X ONCE IVP ; Start 05/02/17 at 09:30; Stop 05/02/17 at 09:40; Status DC Methylprednisolone Sodium Succinate (SOLU-Medrol 125MG VIAL) 125 mg 1X ONCE IV ; Start 05/02/17 at 09:30; Stop 05/02/17 at 09:40; Status DC Info (Anti-Coagulation Monitoring By Pharmacy) 1 each PRN DAILY PRN MC SEE COMMENTS Last administered on 05/05/17 13:59; Start 05/02/17 at 13:00; Stop at 14:06; Status DC Sodium Chloride 1,000 ml @ 1,000 mls/hr Q1H PRN IV hypotension; Start 05/02/17 at 15:13; Stop 05/02/17 at 21:12; Status DC Info (PHARMACY MONITORING -- do not chart) 1 each PRN DAILY PRN MC SEE COMMENTS ; Start 05/02/17 at 15:15 Docusate Sodium (Colace) 100 mg DAILY PO Last administered on 05/05/17 08:29; Start 05/03/17 at 18:00; Stop 05/05/17 at 14:06; Status DC Magnesium Citrate (Citroma) 296 ml 1X ONCE PO ; Start 05/04/17 at 12:00; Stop 05/04/17 at 12:01; Status DC Polyethylene Glycol (miraLAX PACKET) 17 gm DAILY PO Last administered on 09:35; Start 05/04/17 at 12:00 Senna/Docusate Sodium (Senna Plus) 1 tab BID PO Last administered on 05/06/17 09:35; Start 05/05/17 at 21:00 Docusate Sodium (Colace) 100 mg BID PO Last administered on 05/05/17 12:51; Start 05/05/17 at 11:00 Magnesium Hydroxide (Milk Of Magnesia) 2,400 mg PRN Q12HR PRN PO CONSTIPATION; Start 05/05/17 at 10:30 Bisacodyl (Dulcolax Supp) 10 mg PRN DAILY PRN NV CONSTIPATION Last administered on 05/05/17 15:33; Start 05/05/17 at 10:30 Amino Acids/ Glycerin/ Electrolytes 1,000 ml @ 80 mls/hr [id number] IV Last administered on 05/06/17 05:38; Start 05/05/17 at 11:45 Magnesium Sulfate/ Dextrose 50 ml @ 25 mls/hr PRN DAILY PRN IV for Mag < 1.7 on am labs; Start 05/05/17 at 12:45 Carvedilol (Coreg) 6.25 mg BIDWMEALS PO Last administered on 05/06/17 09:38; Start 05/05/17 at 17:00 Heparin Sodium (Porcine) (Heparin Sq) 5,000 unit Q8HRS SQ ; Start 05/05/17 at 22 :00; Stop 05/05/17 at 22:00; Status DC Magnesium Sulfate/ Dextrose 50 ml @ 25 mls/hr 1X ONCE IV Last administered on 05/06/17 09:39; Start 05/06/17 at 08:45; Stop 05/06/17 at 10:44; Status DC Iron Sucrose 200 mg/Sodium Chloride 110 ml @ 55 mls/hr 3X/WEEK IV ; Start at 09:00; Stop 05/16/17 at 10:59 Potassium Phosphate 13.6 mmol/Sodium Chloride 104.5333 ml @ 52.267 m... 1X ONCE IV Last administered on 05/06/17 11:53; Start 05/06/17 at 11:00; Stop at 12:59 Sodium Phosphate 20 mmol/Dextrose 256.6667 ml @ 64.167 m... 1X ONCE IV ; Start 05/06/17 at 11:00; Stop 05/06/17 at 14:59 Active Scripts Active Reported Tizanidine Hcl 4 Mg Tablet 1 Tab PO Q8HRS Spironolactone 25 Mg Tablet 1 Tab PO DAILY Atorvastatin Calcium 20 Mg Tablet 1 Tab PO DAILY Torsemide 20 Mg Tablet 50 Mg PO DAILY Carvedilol 12.5 Mg Tablet 1 Tab PO DAILY Sotalol (Sotalol Hcl) 80 Mg Tablet 120 Mg PO DAILY Tramadol Hcl 50 Mg Tablet 50 Mg PO Q6H PRN Lisinopril 5 Mg Tablet 1 Tab PO DAILY Eliquis (Apixaban) 5 Mg Tablet 5 Mg PO DAILY Lidocaine 1 Each Adh..patch 1 Each TP Vitals/I & O Vital Sign - Last 24 Hours 05/05/17 05/05/17 05/05/17 05/05/17 13:15 13:45 15:00 18:08 Temp 98.6 98.6 Pulse 69 69 Resp 22 B/P (MAP) 130/64 (86) 130/64 Pulse Ox 98 O2 Delivery Room Air Room Air O2 Flow Rate 2.0 05/05/17 05/05/17 05/05/17 05/05/17 18:11 18:38 19:00 20:00 Temp 98.5 98.5 Pulse 67 Resp 20 B/P (MAP) 117/54 (75) Pulse Ox 98 98 94 O2 Delivery Room Air Room Air Room Air Room Air O2 Flow Rate 2.0 05/05/17 05/06/17 05/06/17 05/06/17 23:00 03:00 07:00 09:37 Temp 98.8 97.8 98.8 98.8 97.8 98.8 Pulse 68 68 59 59 Resp 20 20 18 B/P (MAP) 97/50 (66) 110/69 (83) 114/50 (71) 114/50 Pulse Ox 92 93 94 O2 Delivery Room Air Room Air Room Air 05/06/17 09:38 Pulse 59 B/P (MAP) 114/50 Intake and Output 05/05/17 05/05/17 05/06/17 15:00 23:00 07:00 Intake Total 300 ml 1110 ml 500 ml Output Total 800 ml 150 ml Balance 300 ml 310 ml 350 ml LAXMI JIMENEZ MD May 06, 2017 12:53
[2017-05-06 15:00] VITALS: BP 125/60
[2017-05-06] MEDS: CARVEDILOL 3.125 MG TABLET. PO SCH (17:11)
[2017-05-06 19:00] VITALS: BP 126/60
[2017-05-06] MEDS: ATORVASTATIN CALCIUM 20 MG TABLET PO SCH (22:58)
[2017-05-06 23:05] VITALS: BP 103/62
--- NOTE | 2017-05-06 23:57 | CONS ---
DATE OF CONSULTATION: 05/06/2017 ATTENDING PHYSICIAN: Dr. Smith. The patient was seen at the request of Dr. Smith for rehab evaluation about right shoulder pain. HISTORY OF PRESENT ILLNESS: This is a 72-year-old right-handed male transferred from [facility] for further evaluation and treatment of abnormal labs, namely creatinine of 11, low bicarb and serum potassium of 6.1. The patient complains of right shoulder pain. The patient is status post previous right shoulder arthroplasty and also with known atrial fibrillation, coronary artery disease, congestive heart failure, hypertension, myocardial infarction, chronic bronchitis, cerebrovascular accident, dementia, anemia, permanent pacemaker placement. He lives with his in [facility], had stairs for him to manage. The patient prior to the present hospitalization has been getting around. His still works. The patient also with known dyslipidemia, chronic kidney disease. He is not known allergic to any medication. Apparently, his helps with his self-care tasks. He does use a roller walker. He requires physical assistance from his spouse to get up and down the stairs, so he does not do it often. He mostly remains on the main level, previously able to get himself in and out of the bed, walk with a walker, on and off the toilet, etc., and dress himself and wash up at the sink. The spouse has to help him right now with transfers in and out of the bathtub. The spouse pushes the patient in a wheelchair when he goes out to the car and out to the community. They are planning to move to a single level home later on this month. This home had a few steps to enter through the back door, but none within, had a tub shower. His works. PHYSICAL EXAMINATION: Today revealed an elderly male. He is alert, oriented to place and person, follows commands appropriately. He is protecting his right shoulder. He had significant pain on attempted movements of his right shoulder. The patient had diffuse tenderness to palpation around the right shoulder area. He had relative weakness of the right shoulder girdle muscles and also right upper extremity. Overall, his muscle strength being 4/5 grade to 4+/5 grade. Deep tendon reflexes are exaggerated in both lower extremities, especially on the right side. He had equal perception of touch and pinprick sensation bilaterally. Positive Cazares sign and palmomental reflex on the right side. He requires help with bed mobility. I have not tested his transfers or ambulation skills at this time. Physical therapist noted him very retropulsive in standing, maximal assistance needed for static standing with roller walker. He requires maximal assistance supine to sit and transfers, stand step using a roller walker. Transfers are difficult and unsafe due to poor initial positioning of lower extremities. Some stiffness of the right knee. He requires constant verbal and tactile cues needed for hand placement with maximal assistance, using a roller walker, he walked for about 3 feet, slow madhu, posterior leaning, step ____ shuffling gait. He is receiving IV fluids. 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 The patient is status post right shoulder arthroplasty done about 2 years ago. RECOMMENDATIONS: To try physical modalities and active range of motion exercise to his right shoulder. Agree with the plan for transfer to [facility] when he is medically stable. Dr. Smith, I appreciate asking me to participate in the care of this interesting patient. I will be glad to follow him with you as needed for the rehabilitation. ANNA MARIE DOBBS MD DR: ULISSE/stephanie JOB#: [id number] / [id number]
[2017-05-07 00:21] LABS: BILIRUBIN,URINE NEGATIVE (NEG); GLUCOSE,URINE NEGATIVE (NEG); NITRITE,URINE NEGATIVE (NEG); PROTEIN,URINE 30 mg/dL (NEG-TRACE); UROBILINOGEN,URINE 0.2 mg/dL (0.2 mg/dL)
[2017-05-07 00:34] LABS: BACTERIA,URINE 0 /HPF (0-FEW); RBC,URINE TNTC /HPF (0-2); SQUAMOUS EPITHELIAL CELL,UR OCC /LPF; WBC,URINE OCC /HPF (0-4)
[2017-05-07] MEDS: AMINO AC 3%/ELECTROLYTE/GLYCER 1,000 ML IV SCH ×3 (01:15→18:15)
[2017-05-07 04:05] LABS: BASO % 1 % (0-3); EOS % 4 % (0-3); HEMATOCRIT 21.1 % (39.0-53.0); HEMOGLOBIN 7.1 g/dL (13.0-17.5); LYMPH # 1.1 x10^3/uL (1.0-4.8); LYMPH % 16 % (24-48); MEAN CORPUSCULAR HEMOGLOBIN 29 pg (25-35); MEAN CORPUSCULAR HGB CONC 33 g/dL (31-37); MEAN CORPUSCULAR VOLUME 88 fL (79-100); MONO % 9 % (0-9); NEUT % 71 % (31-73); PLATELET COUNT 165 x10^3/uL (140-400); RED BLOOD COUNT 2.41 x10^6/uL (4.30-5.70); RED CELL DISTRIBUTION WIDTH 15.5 % (11.5-14.5); WHITE BLOOD COUNT 7.1 x10^3/uL (4.0-11.0)
[2017-05-07 04:18] LABS: ALBUMIN 1.9 g/dL (3.4-5.0); CALCIUM 7.9 mg/dL (8.5-10.1); CREATININE 1.7 mg/dL (0.7-1.3); PHOSPHORUS 3.3 mg/dL (2.6-4.7)
[2017-05-07] MEDS: tiZANidine 4 MG TABLET. PO SCH ×3 (06:26→22:41)
[2017-05-07 07:00] VITALS: BP 134/68
[2017-05-07] MEDS ORDERED: IRON SUCROSE COMPLEX 200 MG in IV NORMAL SALINE 100ML 100 ML IV SCH (09:00)
[2017-05-07] MEDS ORDERED: CARV3.122 PO (09:17)
[2017-05-07] MEDS: LIDOCAINE (700MG/PATCH) PATCH. TP SCH (09:20)
[2017-05-07] MEDS: SENNOSIDES/DOCUSATE 8.6/50MG TABLET. PO SCH ×2 (09:22→20:53)
[2017-05-07] MEDS: DOCUSATE SODIUM 100 MG CAPSULE. PO SCH ×2 (09:22→20:53)
[2017-05-07] MEDS: APIXABAN 5 MG TABLET. PO SCH ×2 (09:23→20:53)
[2017-05-07] MEDS: HYDROcodone/APAP 5/325MG 1 TAB TABLET PO PRN ×2 (09:23→20:54)
[2017-05-07] MEDS: POLYETHYLENE GLYCOL 3350 17 GM PACKET. PO SCH (09:24)
[2017-05-07] MEDS: CARVEDILOL 3.125 MG TABLET. PO SCH ×2 (09:24→16:32)
[2017-05-07] MEDS: SOTALOL 80 MG TABLET. PO SCH (09:24)
--- NOTE | 2017-05-07 10:03 | PDOC ---
PROGRESS NOTES Subjective Subjective He continues with right shoulder pain. Objective Objective Vital Signs Date Time Temp Pulse Resp B/P (MAP) Pulse Ox O2 Delivery O2 Flow Rate FiO2 05/07/17 09:24 71 134/68 05/07/17 09:23 6 Room Air 05/07/17 07:00 97.7 99 2.0 97.7 Intake and Output 05/07/17 07:00 Intake Total 726.6667 ml Output Total 450 ml Balance 276.6667 ml Intake Oral 470 ml IV Total 256.6667 ml Output Urine Total 450 ml # Voids 6 Physical Exam Physical Exam He is alert,supine in bed and continues with tenderness to palpation right shoulder and right posterior shoulder girdle muscles and pain on ROM of shoulder and mobility and self care limitations residuals of spastic right hemiparesis.He had right shoulder hemiarthroplasty as seen by chest x-ray. Plan Plan of Care Agree with plans for transfer to SNF or rehab unit when medically stable. Comment Review of Relevant I have reviewed the following items maranda (where applicable) has been applied. Labs Laboratory Tests Test 05/05/17 13:05 05/06/17 03:40 05/06/17 04:15 05/06/17 22:50 Reticulocyte Count (auto) 1.2 % (0.5-2.5) Iron Level 13 ug/dL (65-175) Total Iron Binding Capacity 135 ug/dL (250-450) Iron Saturation 10 % (15-34) White Blood Count 8.6 x10^3/uL (4.0-11.0) Red Blood Count 2.45 x10^6/uL (4.30-5.70) Hemoglobin 7.1 g/dL (13.0-17.5) Hematocrit 22.0 % (39.0-53.0) Mean Corpuscular Volume 90 fL (79-100) Mean Corpuscular Hemoglobin 29 pg (25-35) Mean Corpuscular Hemoglobin Concent 32 g/dL (31-37) Red Cell Distribution Width 15.2 % (11.5-14.5) Platelet Count 141 x10^3/uL (140-400) Neutrophils (%) (Auto) 74 % (31-73) Lymphocytes (%) (Auto) 13 % (24-48) Monocytes (%) (Auto) 10 % (0-9) Eosinophils (%) (Auto) 2 % (0-3) Basophils (%) (Auto) 1 % (0-3) Neutrophils # (Auto) 6.4 x10^3uL (1.8-7.7) Lymphocytes # (Auto) 1.1 x10^3/uL (1.0-4.8) Monocytes # (Auto) 0.9 x10^3/uL (0.0-1.1) Eosinophils # (Auto) 0.2 x10^3/uL (0.0-0.7) Basophils # (Auto) 0.1 x10^3/uL (0.0-0.2) Sodium Level 145 mmol/L (136-145) Potassium Level 4.0 mmol/L (3.5-5.1) Chloride Level 111 mmol/L (98-107) Carbon Dioxide Level 25 mmol/L (21-32) Anion Gap 9 (6-14) Blood Urea Nitrogen 24 mg/dL (8-26) Creatinine 2.0 mg/dL (0.7-1.3) Estimated GFR (Cockcroft-Gault) 39.8 Glucose Level 104 mg/dL (70-99) Calcium Level 8.2 mg/dL (8.5-10.1) Phosphorus Level 2.2 mg/dL (2.6-4.7) Magnesium Level 1.7 mg/dL (1.8-2.4) Albumin 1.9 g/dL (3.4-5.0) Urine Collection Type Unknown Urine Color Yellow Urine Clarity Cloudy Urine pH 6.0 Urine Specific [place] 1.010 Urine Protein 30 mg/dL (NEG-TRACE) Urine Glucose (UA) Negative mg/dL (NEG) Urine Ketones (Stick) Negative mg/dL (NEG) Urine Blood Moderate (NEG) Urine Nitrite Negative (NEG) Urine Bilirubin Negative (NEG) Urine Urobilinogen Dipstick 0.2 mg/dL (0.2 mg/dL) Urine Leukocyte Esterase Negative (NEG) Urine RBC Tntc /HPF (0-2) Urine WBC Occ /HPF (0-4) Urine Squamous Epithelial Cells Occ /LPF Urine Bacteria 0 /HPF (0-FEW) Urine Hyaline Casts Many /HPF Test 05/07/17 03:48 White Blood Count 7.1 x10^3/uL (4.0-11.0) Red Blood Count 2.41 x10^6/uL (4.30-5.70) Hemoglobin 7.1 g/dL (13.0-17.5) Hematocrit 21.1 % (39.0-53.0) Mean Corpuscular Volume 88 fL (79-100) Mean Corpuscular Hemoglobin 29 pg (25-35) Mean Corpuscular Hemoglobin Concent 33 g/dL (31-37) Red Cell Distribution Width 15.5 % (11.5-14.5) Platelet Count 165 x10^3/uL (140-400) Neutrophils (%) (Auto) 71 % (31-73) Lymphocytes (%) (Auto) 16 % (24-48) Monocytes (%) (Auto) 9 % (0-9) Eosinophils (%) (Auto) 4 % (0-3) Basophils (%) (Auto) 1 % (0-3) Neutrophils # (Auto) 5.1 x10^3uL (1.8-7.7) Lymphocytes # (Auto) 1.1 x10^3/uL (1.0-4.8) Monocytes # (Auto) 0.6 x10^3/uL (0.0-1.1) Eosinophils # (Auto) 0.3 x10^3/uL (0.0-0.7) Basophils # (Auto) 0.0 x10^3/uL (0.0-0.2) Sodium Level 144 mmol/L (136-145) Potassium Level 4.0 mmol/L (3.5-5.1) Chloride Level 112 mmol/L (98-107) Carbon Dioxide Level 24 mmol/L (21-32) Anion Gap 8 (6-14) Blood Urea Nitrogen 23 mg/dL (8-26) Creatinine 1.7 mg/dL (0.7-1.3) Estimated GFR (Cockcroft-Gault) 48.0 Glucose Level 97 mg/dL (70-99) Calcium Level 7.9 mg/dL (8.5-10.1) Phosphorus Level 3.3 mg/dL (2.6-4.7) Magnesium Level 2.2 mg/dL (1.8-2.4) Albumin 1.9 g/dL (3.4-5.0) Laboratory Tests Test 05/06/17 22:50 05/07/17 03:48 Urine Collection Type Unknown Urine Color Yellow Urine Clarity Cloudy Urine pH 6.0 Urine Specific [place] 1.010 Urine Protein 30 mg/dL (NEG-TRACE) Urine Glucose (UA) Negative mg/dL (NEG) Urine Ketones (Stick) Negative mg/dL (NEG) Urine Blood Moderate (NEG) Urine Nitrite Negative (NEG) Urine Bilirubin Negative (NEG) Urine Urobilinogen Dipstick 0.2 mg/dL (0.2 mg/dL) Urine Leukocyte Esterase Negative (NEG) Urine RBC Tntc /HPF (0-2) Urine WBC Occ /HPF (0-4) Urine Squamous Epithelial Cells Occ /LPF Urine Bacteria 0 /HPF (0-FEW) Urine Hyaline Casts Many /HPF White Blood Count 7.1 x10^3/uL (4.0-11.0) Red Blood Count 2.41 x10^6/uL (4.30-5.70) Hemoglobin 7.1 g/dL (13.0-17.5) Hematocrit 21.1 % (39.0-53.0) Mean Corpuscular Volume 88 fL (79-100) Mean Corpuscular Hemoglobin 29 pg (25-35) Mean Corpuscular Hemoglobin Concent 33 g/dL (31-37) Red Cell Distribution Width 15.5 % (11.5-14.5) Platelet Count 165 x10^3/uL (140-400) Neutrophils (%) (Auto) 71 % (31-73) Lymphocytes (%) (Auto) 16 % (24-48) Monocytes (%) (Auto) 9 % (0-9) Eosinophils (%) (Auto) 4 % (0-3) Basophils (%) (Auto) 1 % (0-3) Neutrophils # (Auto) 5.1 x10^3uL (1.8-7.7) Lymphocytes # (Auto) 1.1 x10^3/uL (1.0-4.8) Monocytes # (Auto) 0.6 x10^3/uL (0.0-1.1) Eosinophils # (Auto) 0.3 x10^3/uL (0.0-0.7) Basophils # (Auto) 0.0 x10^3/uL (0.0-0.2) Sodium Level 144 mmol/L (136-145) Potassium Level 4.0 mmol/L (3.5-5.1) Chloride Level 112 mmol/L (98-107) Carbon Dioxide Level 24 mmol/L (21-32) Anion Gap 8 (6-14) Blood Urea Nitrogen 23 mg/dL (8-26) Creatinine 1.7 mg/dL (0.7-1.3) Estimated GFR (Cockcroft-Gault) 48.0 Glucose Level 97 mg/dL (70-99) Calcium Level 7.9 mg/dL (8.5-10.1) Phosphorus Level 3.3 mg/dL (2.6-4.7) Magnesium Level 2.2 mg/dL (1.8-2.4) Albumin 1.9 g/dL (3.4-5.0) Medications Current Medications Furosemide (Lasix) 40 mg 1X ONCE IVP Last administered on 05/01/17 02:19; Start 05/01/17 at 01:30; Stop 05/01/17 at 01:31; Status DC Ondansetron HCl (Zofran) 4 mg PRN Q6HRS PRN IV NAUSEA/VOMITING; Start 05/01/17 at 01:30 Morphine Sulfate 2 mg PRN Q2HR PRN IV PAIN Last administered on 05/05/17 18:11 ; Start 05/01/17 at 01:30 Sodium Bicarbonate 150 meq/Sterile Water 1,150 ml @ 125 mls/hr Q9H12M IV Last administered on 05/01/17 02:28; Start 05/01/17 at 01:30; Stop 05/01/17 at 13:29 ; Status DC Acetaminophen/ Hydrocodone Bitart (Lortab 5/325) 1 tab PRN Q4HRS PRN PO SEVERE PAIN Last administered on 05/07/17 09:23; Start 05/01/17 at 08:00 Acetaminophen (Tylenol) 500 mg PRN Q6HRS PRN PO MILD PAIN / TEMP; Start at 08:00 Heparin Sodium (Porcine) (Heparin Sodium) 10,000 unit STK-MED ONCE .ROUTE ; Start 05/01/17 at 13:21; Stop 05/01/17 at 13:22; Status DC Lidocaine/Sodium Bicarbonate (Buffered Lidocaine 1%) 20 ml STK-MED ONCE IJ ; Start 05/01/17 at 13:22; Stop 05/01/17 at 13:23; Status DC Heparin Sodium/ Sodium Chloride 500 ml @ As Directed STK-MED ONCE .ROUTE ; Start 05/01/17 at 13:22; Stop 05/01/17 at 13:23; Status DC Lidocaine/Sodium Bicarbonate (Buffered Lidocaine 1%) 3 ml 1X ONCE IJ Last administered on 05/01/17 14:03; Start 05/01/17 at 13:30; Stop 05/01/17 at 13:31 ; Status DC Heparin Sodium/ Sodium Chloride 60 unit 1X ONCE IV Last administered on 14:03; Start 05/01/17 at 13:30; Stop 05/01/17 at 13:31; Status DC Heparin Sodium (Porcine) (Heparin Sodium) 2,500 unit 1X ONCE INT CAT Last administered on 05/01/17 13:30; Start 05/01/17 at 13:30; Stop 05/01/17 at 13:31 ; Status DC Sodium Chloride 1,000 ml @ 100 mls/hr Q10H IV Last administered on 05/05/17 08:00; Start 05/01/17 at 14:00; Stop 05/05/17 at 11:16; Status DC Ceftriaxone Sodium 1 gm/ Sodium Chloride 50 ml @ 100 mls/hr Q24H IV Last administered on 05/06/17 15:44; Start 05/01/17 at 14:00 Sodium Chloride 1,000 ml @ 1,000 mls/hr Q1H PRN IV hypotension; Start 05/01/17 at 18:50; Stop 05/02/17 at 00:49; Status DC Sodium Chloride (Normal Saline Flush) 10 ml 1X PRN PRN IV AP catheter pack; Start 05/01/17 at 19:00; Stop 05/02/17 at 18:59; Status DC Sodium Chloride (Normal Saline Flush) 10 ml 1X PRN PRN IV REGISTERED [employer] catheter pack; Start 05/01/17 at 19:00; Stop 05/02/17 at 18:59; Status DC Sodium Chloride 1,000 ml @ 400 mls/hr Q2H30M PRN IV PATENCY; Start 05/01/17 at 18:50; Stop 05/02/17 at 06:49; Status DC Info (PHARMACY MONITORING -- do not chart) 1 each PRN DAILY PRN MC SEE COMMENTS ; Start 05/01/17 at 19:00; Status UNV Info (PHARMACY MONITORING -- do not chart) 1 each PRN DAILY PRN MC SEE COMMENTS ; Start 05/01/17 at 19:00; Stop 05/03/17 at 07:59; Status DC Apixaban (Eliquis) 5 mg BID PO Last administered on 05/07/17 09:23; Start 05/02 at 09:00 Atorvastatin Calcium (Lipitor) 20 mg QHS PO Last administered on 05/06/17 22:58 ; Start 05/02/17 at 21:00 Carvedilol (Coreg) 12.5 mg DAILY PO Last administered on 05/05/17 08:29; Start 05/02/17 at 09:00; Stop 05/05/17 at 14:06; Status DC Lidocaine (Lidoderm) 1 patch DAILY TP Last administered on 05/07/17 09:20; Start 05/02/17 at 09:00 Sotalol HCl (Betapace) 120 mg DAILY PO Last administered on 05/07/17 09:24; Start 05/02/17 at 09:00 Tizanidine HCl (Zanaflex) 4 mg Q8HRS PO Last administered on 05/07/17 06:26; Start 05/02/17 at 09:30 Tramadol HCl (Ultram) 50 mg PRN Q6HRS PRN PO MODERATE PAIN Last administered on 05/04/17 04:37; Start 05/02/17 at 09:00 Furosemide (Lasix) 20 mg 1X ONCE IVP ; Start 05/02/17 at 09:30; Stop 05/02/17 at 09:40; Status DC Methylprednisolone Sodium Succinate (SOLU-Medrol 125MG VIAL) 125 mg 1X ONCE IV ; Start 05/02/17 at 09:30; Stop 05/02/17 at 09:40; Status DC Info (Anti-Coagulation Monitoring By Pharmacy) 1 each PRN DAILY PRN MC SEE COMMENTS Last administered on 05/05/17 13:59; Start 05/02/17 at 13:00; Stop at 14:06; Status DC Sodium Chloride 1,000 ml @ 1,000 mls/hr Q1H PRN IV hypotension; Start 05/02/17 at 15:13; Stop 05/02/17 at 21:12; Status DC Info (PHARMACY MONITORING -- do not chart) 1 each PRN DAILY PRN MC SEE COMMENTS ; Start 05/02/17 at 15:15 Docusate Sodium (Colace) 100 mg DAILY PO Last administered on 05/05/17 08:29; Start 05/03/17 at 18:00; Stop 05/05/17 at 14:06; Status DC Magnesium Citrate (Citroma) 296 ml 1X ONCE PO ; Start 05/04/17 at 12:00; Stop 05/04/17 at 12:01; Status DC Polyethylene Glycol (miraLAX PACKET) 17 gm DAILY PO Last administered on 09:24; Start 05/04/17 at 12:00 Senna/Docusate Sodium (Senna Plus) 1 tab BID PO Last administered on 05/07/17 09:22; Start 05/05/17 at 21:00 Docusate Sodium (Colace) 100 mg BID PO Last administered on 05/07/17 09:22; Start 05/05/17 at 11:00 Magnesium Hydroxide (Milk Of Magnesia) 2,400 mg PRN Q12HR PRN PO CONSTIPATION; Start 05/05/17 at 10:30 Bisacodyl (Dulcolax Supp) 10 mg PRN DAILY PRN SC CONSTIPATION Last administered on 05/05/17 15:33; Start 05/05/17 at 10:30 Amino Acids/ Glycerin/ Electrolytes 1,000 ml @ 80 mls/hr [id number] IV Last administered on 05/06/17 05:38; Start 05/05/17 at 11:45 Magnesium Sulfate/ Dextrose 50 ml @ 25 mls/hr PRN DAILY PRN IV for Mag < 1.7 on am labs; Start 05/05/17 at 12:45 Carvedilol (Coreg) 6.25 mg BIDWMEALS PO Last administered on 05/06/17 09:38; Start 05/05/17 at 17:00; Stop 05/06/17 at 12:50; Status DC Heparin Sodium (Porcine) (Heparin Sq) 5,000 unit Q8HRS SQ ; Start 05/05/17 at 22 :00; Stop 05/05/17 at 22:00; Status DC Magnesium Sulfate/ Dextrose 50 ml @ 25 mls/hr 1X ONCE IV Last administered on 05/06/17 09:39; Start 05/06/17 at 08:45; Stop 05/06/17 at 10:44; Status DC Iron Sucrose 200 mg/Sodium Chloride 110 ml @ 55 mls/hr 3X/WEEK IV Last administered on 05/07/17 09:19; Start 05/07/17 at 09:00; Stop 05/16/17 at 10:59 Potassium Phosphate 13.6 mmol/Sodium Chloride 104.5333 ml @ 52.267 m... 1X ONCE IV Last administered on 05/06/17 11:53; Start 05/06/17 at 11:00; Stop at 12:59; Status DC Sodium Phosphate 20 mmol/Dextrose 256.6667 ml @ 64.167 m... 1X ONCE IV Last administered on 05/06/17 17:11; Start 05/06/17 at 11:00; Stop 05/06/17 at 14:59; Status DC Carvedilol (Coreg) 3.125 mg BIDWMEALS PO Last administered on 05/07/17 09:24; Start 05/06/17 at 17:00 Ferrous Sulfate (Feosol) 325 mg DAILYWBKFT PO ; Start 05/08/17 at 08:00 Active Scripts Active Carvedilol 3.125 Mg Tablet 3.125 Mg PO BIDWMEALS 30 Days Reported Tizanidine Hcl 4 Mg Tablet 1 Tab PO Q8HRS Atorvastatin Calcium 20 Mg Tablet 1 Tab PO DAILY Sotalol (Sotalol Hcl) 80 Mg Tablet 120 Mg PO DAILY Tramadol Hcl 50 Mg Tablet 50 Mg PO Q6H PRN Eliquis (Apixaban) 5 Mg Tablet 5 Mg PO DAILY Lidocaine 1 Each Adh..patch 1 Each TP Vitals/I & O Vital Sign - Last 24 Hours 05/06/17 05/06/17 05/06/17 05/06/17 11:00 15:00 17:11 19:00 Temp 97.9 98.7 98.6 97.9 98.7 98.6 Pulse 60 63 63 63 Resp 18 18 20 B/P (MAP) 110/64 (79) 125/60 (81) 125/60 126/60 (82) Pulse Ox 94 95 100 O2 Delivery Room Air Room Air Nasal Cannula O2 Flow Rate 2.0 05/06/17 05/06/17 05/07/17 05/07/17 20:00 23:05 07:00 09:23 Temp 98.2 97.7 98.2 97.7 Pulse 63 71 Resp 20 18 6 B/P (MAP) 103/62 (76) 134/68 (90) Pulse Ox 100 99 O2 Delivery Room Air Room Air Nasal Cannula Room Air O2 Flow Rate 2.0 2.0 2.0 05/07/17 05/07/17 09:24 09:24 Pulse 71 71 B/P (MAP) 134/68 134/68 Intake and Output 05/06/17 05/06/17 05/07/17 15:00 23:00 07:00 Intake Total 0 ml 326.6667 ml 400 ml Output Total 450 ml Balance 0 ml 326.6667 ml -50 ml ANNA MARIE DOBBS MD May 07, 2017 10:03
[2017-05-07 10:45] VITALS: BP 138/69
[2017-05-07 11:23] LABS: FOLATE 3.54 ng/ml (3.2-20.0)
--- NOTE | 2017-05-07 12:08 | PDOC ---
PROGRESS NOTES Chief Complaint Chief Complaint CC confusion 1. RINKU with CKD stage 5 2. AOCD 3. Metabolic acidosis with hyperkalemia better 4 Hyperkalemia with EKG changes resolved 5. Indwelling pace maker 6. Possible dementia, undiagnosed 7. HTN, CAD, CHF, Dsylipidemia, atrial fib, chronic stable UTI , SIRS constipation chronic right shoulder pain normacytic anemia, low iron, ckd hypomagnesemia plan: fu with renal, got HD x2 times, Cr stable as CKD now on eliquis decrease coreg to 3.125mg bid, on sotalol too on ceftriaxone for uti add stool softner dr. Joy consult for right shoulder pain replete iron, mag, check vitb12, fa, fobt ptot SW FOR snf tmr History of Present Illness History of Present Illness cr better with hd, cont better with ivf constipation better hope with ok urine output, removed on 05/05 still mild confusion to me, but as per nurse , pt has no dementia from his fever 102 resolved lower hb, low iron, no active bleeding low mag cont right shoulder pain Vitals Vitals Vital Signs Date Time Temp Pulse Resp B/P (MAP) Pulse Ox O2 Delivery O2 Flow Rate FiO2 05/07/17 10:45 98.9 68 18 138/69 (92) 92 Room Air 98.9 05/07/17 07:00 2.0 Physical Exam General: Alert, Cooperative Heart: Regular rate, Normal S1, Normal S2, No murmurs, Gallops Lungs: Clear, Other (No RRW) Abdomen: Normal bowel sounds, Soft, No tenderness, No hepatosplenomegaly, No masses Extremities: No clubbing, No cyanosis, No edema, Normal pulses, No tenderness/ swelling Skin: No rashes, No significant lesion Labs LABS Laboratory Tests Test 05/06/17 22:50 05/07/17 03:48 Urine Collection Type Unknown Urine Color Yellow Urine Clarity Cloudy Urine pH 6.0 Urine Specific Goldsmith 1.010 Urine Protein 30 mg/dL (NEG-TRACE) Urine Glucose (UA) Negative mg/dL (NEG) Urine Ketones (Stick) Negative mg/dL (NEG) Urine Blood Moderate (NEG) Urine Nitrite Negative (NEG) Urine Bilirubin Negative (NEG) Urine Urobilinogen Dipstick 0.2 mg/dL (0.2 mg/dL) Urine Leukocyte Esterase Negative (NEG) Urine RBC Tntc /HPF (0-2) Urine WBC Occ /HPF (0-4) Urine Squamous Epithelial Cells Occ /LPF Urine Bacteria 0 /HPF (0-FEW) Urine Hyaline Casts Many /HPF White Blood Count 7.1 x10^3/uL (4.0-11.0) Red Blood Count 2.41 x10^6/uL (4.30-5.70) Hemoglobin 7.1 g/dL (13.0-17.5) Hematocrit 21.1 % (39.0-53.0) Mean Corpuscular Volume 88 fL (79-100) Mean Corpuscular Hemoglobin 29 pg (25-35) Mean Corpuscular Hemoglobin Concent 33 g/dL (31-37) Red Cell Distribution Width 15.5 % (11.5-14.5) Platelet Count 165 x10^3/uL (140-400) Neutrophils (%) (Auto) 71 % (31-73) Lymphocytes (%) (Auto) 16 % (24-48) Monocytes (%) (Auto) 9 % (0-9) Eosinophils (%) (Auto) 4 % (0-3) Basophils (%) (Auto) 1 % (0-3) Neutrophils # (Auto) 5.1 x10^3uL (1.8-7.7) Lymphocytes # (Auto) 1.1 x10^3/uL (1.0-4.8) Monocytes # (Auto) 0.6 x10^3/uL (0.0-1.1) Eosinophils # (Auto) 0.3 x10^3/uL (0.0-0.7) Basophils # (Auto) 0.0 x10^3/uL (0.0-0.2) Sodium Level 144 mmol/L (136-145) Potassium Level 4.0 mmol/L (3.5-5.1) Chloride Level 112 mmol/L (98-107) Carbon Dioxide Level 24 mmol/L (21-32) Anion Gap 8 (6-14) Blood Urea Nitrogen 23 mg/dL (8-26) Creatinine 1.7 mg/dL (0.7-1.3) Estimated GFR (Cockcroft-Gault) 48.0 Glucose Level 97 mg/dL (70-99) Calcium Level 7.9 mg/dL (8.5-10.1) Phosphorus Level 3.3 mg/dL (2.6-4.7) Magnesium Level 2.2 mg/dL (1.8-2.4) Albumin 1.9 g/dL (3.4-5.0) Vitamin B12 Level 1152 pg/mL (247-911) Serum Folate 3.54 ng/ml (3.2-20.0) Review of Systems Review of Systems no fever, chills, sob or chest pain Comment Review of Relevant I have reviewed the following items maranda (where applicable) has been applied. Labs Laboratory Tests Test 05/05/17 13:05 05/06/17 03:40 05/06/17 04:15 05/06/17 22:50 Reticulocyte Count (auto) 1.2 % (0.5-2.5) Iron Level 13 ug/dL (65-175) Total Iron Binding Capacity 135 ug/dL (250-450) Iron Saturation 10 % (15-34) White Blood Count 8.6 x10^3/uL (4.0-11.0) Red Blood Count 2.45 x10^6/uL (4.30-5.70) Hemoglobin 7.1 g/dL (13.0-17.5) Hematocrit 22.0 % (39.0-53.0) Mean Corpuscular Volume 90 fL (79-100) Mean Corpuscular Hemoglobin 29 pg (25-35) Mean Corpuscular Hemoglobin Concent 32 g/dL (31-37) Red Cell Distribution Width 15.2 % (11.5-14.5) Platelet Count 141 x10^3/uL (140-400) Neutrophils (%) (Auto) 74 % (31-73) Lymphocytes (%) (Auto) 13 % (24-48) Monocytes (%) (Auto) 10 % (0-9) Eosinophils (%) (Auto) 2 % (0-3) Basophils (%) (Auto) 1 % (0-3) Neutrophils # (Auto) 6.4 x10^3uL (1.8-7.7) Lymphocytes # (Auto) 1.1 x10^3/uL (1.0-4.8) Monocytes # (Auto) 0.9 x10^3/uL (0.0-1.1) Eosinophils # (Auto) 0.2 x10^3/uL (0.0-0.7) Basophils # (Auto) 0.1 x10^3/uL (0.0-0.2) Sodium Level 145 mmol/L (136-145) Potassium Level 4.0 mmol/L (3.5-5.1) Chloride Level 111 mmol/L (98-107) Carbon Dioxide Level 25 mmol/L (21-32) Anion Gap 9 (6-14) Blood Urea Nitrogen 24 mg/dL (8-26) Creatinine 2.0 mg/dL (0.7-1.3) Estimated GFR (Cockcroft-Gault) 39.8 Glucose Level 104 mg/dL (70-99) Calcium Level 8.2 mg/dL (8.5-10.1) Phosphorus Level 2.2 mg/dL (2.6-4.7) Magnesium Level 1.7 mg/dL (1.8-2.4) Albumin 1.9 g/dL (3.4-5.0) Urine Collection Type Unknown Urine Color Yellow Urine Clarity Cloudy Urine pH 6.0 Urine Specific Goldsmith 1.010 Urine Protein 30 mg/dL (NEG-TRACE) Urine Glucose (UA) Negative mg/dL (NEG) Urine Ketones (Stick) Negative mg/dL (NEG) Urine Blood Moderate (NEG) Urine Nitrite Negative (NEG) Urine Bilirubin Negative (NEG) Urine Urobilinogen Dipstick 0.2 mg/dL (0.2 mg/dL) Urine Leukocyte Esterase Negative (NEG) Urine RBC Tntc /HPF (0-2) Urine WBC Occ /HPF (0-4) Urine Squamous Epithelial Cells Occ /LPF Urine Bacteria 0 /HPF (0-FEW) Urine Hyaline Casts Many /HPF Test 05/07/17 03:48 White Blood Count 7.1 x10^3/uL (4.0-11.0) Red Blood Count 2.41 x10^6/uL (4.30-5.70) Hemoglobin 7.1 g/dL (13.0-17.5) Hematocrit 21.1 % (39.0-53.0) Mean Corpuscular Volume 88 fL (79-100) Mean Corpuscular Hemoglobin 29 pg (25-35) Mean Corpuscular Hemoglobin Concent 33 g/dL (31-37) Red Cell Distribution Width 15.5 % (11.5-14.5) Platelet Count 165 x10^3/uL (140-400) Neutrophils (%) (Auto) 71 % (31-73) Lymphocytes (%) (Auto) 16 % (24-48) Monocytes (%) (Auto) 9 % (0-9) Eosinophils (%) (Auto) 4 % (0-3) Basophils (%) (Auto) 1 % (0-3) Neutrophils # (Auto) 5.1 x10^3uL (1.8-7.7) Lymphocytes # (Auto) 1.1 x10^3/uL (1.0-4.8) Monocytes # (Auto) 0.6 x10^3/uL (0.0-1.1) Eosinophils # (Auto) 0.3 x10^3/uL (0.0-0.7) Basophils # (Auto) 0.0 x10^3/uL (0.0-0.2) Sodium Level 144 mmol/L (136-145) Potassium Level 4.0 mmol/L (3.5-5.1) Chloride Level 112 mmol/L (98-107) Carbon Dioxide Level 24 mmol/L (21-32) Anion Gap 8 (6-14) Blood Urea Nitrogen 23 mg/dL (8-26) Creatinine 1.7 mg/dL (0.7-1.3) Estimated GFR (Cockcroft-Gault) 48.0 Glucose Level 97 mg/dL (70-99) Calcium Level 7.9 mg/dL (8.5-10.1) Phosphorus Level 3.3 mg/dL (2.6-4.7) Magnesium Level 2.2 mg/dL (1.8-2.4) Albumin 1.9 g/dL (3.4-5.0) Vitamin B12 Level 1152 pg/mL (247-911) Serum Folate 3.54 ng/ml (3.2-20.0) Laboratory Tests Test 05/06/17 22:50 05/07/17 03:48 Urine Collection Type Unknown Urine Color Yellow Urine Clarity Cloudy Urine pH 6.0 Urine Specific Goldsmith 1.010 Urine Protein 30 mg/dL (NEG-TRACE) Urine Glucose (UA) Negative mg/dL (NEG) Urine Ketones (Stick) Negative mg/dL (NEG) Urine Blood Moderate (NEG) Urine Nitrite Negative (NEG) Urine Bilirubin Negative (NEG) Urine Urobilinogen Dipstick 0.2 mg/dL (0.2 mg/dL) Urine Leukocyte Esterase Negative (NEG) Urine RBC Tntc /HPF (0-2) Urine WBC Occ /HPF (0-4) Urine Squamous Epithelial Cells Occ /LPF Urine Bacteria 0 /HPF (0-FEW) Urine Hyaline Casts Many /HPF White Blood Count 7.1 x10^3/uL (4.0-11.0) Red Blood Count 2.41 x10^6/uL (4.30-5.70) Hemoglobin 7.1 g/dL (13.0-17.5) Hematocrit 21.1 % (39.0-53.0) Mean Corpuscular Volume 88 fL (79-100) Mean Corpuscular Hemoglobin 29 pg (25-35) Mean Corpuscular Hemoglobin Concent 33 g/dL (31-37) Red Cell Distribution Width 15.5 % (11.5-14.5) Platelet Count 165 x10^3/uL (140-400) Neutrophils (%) (Auto) 71 % (31-73) Lymphocytes (%) (Auto) 16 % (24-48) Monocytes (%) (Auto) 9 % (0-9) Eosinophils (%) (Auto) 4 % (0-3) Basophils (%) (Auto) 1 % (0-3) Neutrophils # (Auto) 5.1 x10^3uL (1.8-7.7) Lymphocytes # (Auto) 1.1 x10^3/uL (1.0-4.8) Monocytes # (Auto) 0.6 x10^3/uL (0.0-1.1) Eosinophils # (Auto) 0.3 x10^3/uL (0.0-0.7) Basophils # (Auto) 0.0 x10^3/uL (0.0-0.2) Sodium Level 144 mmol/L (136-145) Potassium Level 4.0 mmol/L (3.5-5.1) Chloride Level 112 mmol/L (98-107) Carbon Dioxide Level 24 mmol/L (21-32) Anion Gap 8 (6-14) Blood Urea Nitrogen 23 mg/dL (8-26) Creatinine 1.7 mg/dL (0.7-1.3) Estimated GFR (Cockcroft-Gault) 48.0 Glucose Level 97 mg/dL (70-99) Calcium Level 7.9 mg/dL (8.5-10.1) Phosphorus Level 3.3 mg/dL (2.6-4.7) Magnesium Level 2.2 mg/dL (1.8-2.4) Albumin 1.9 g/dL (3.4-5.0) Vitamin B12 Level 1152 pg/mL (247-911) Serum Folate 3.54 ng/ml (3.2-20.0) Medications Current Medications Furosemide (Lasix) 40 mg 1X ONCE IVP Last administered on 05/01/17 02:19; Start 05/01/17 at 01:30; Stop 05/01/17 at 01:31; Status DC Ondansetron HCl (Zofran) 4 mg PRN Q6HRS PRN IV NAUSEA/VOMITING; Start 05/01/17 at 01:30 Morphine Sulfate 2 mg PRN Q2HR PRN IV PAIN Last administered on 05/05/17 18:11 ; Start 05/01/17 at 01:30 Sodium Bicarbonate 150 meq/Sterile Water 1,150 ml @ 125 mls/hr Q9H12M IV Last administered on 05/01/17 02:28; Start 05/01/17 at 01:30; Stop 05/01/17 at 13:29 ; Status DC Acetaminophen/ Hydrocodone Bitart (Lortab 5/325) 1 tab PRN Q4HRS PRN PO SEVERE PAIN Last administered on 05/07/17 09:23; Start 05/01/17 at 08:00 Acetaminophen (Tylenol) 500 mg PRN Q6HRS PRN PO MILD PAIN / TEMP; Start at 08:00 Heparin Sodium (Porcine) (Heparin Sodium) 10,000 unit STK-MED ONCE .ROUTE ; Start 05/01/17 at 13:21; Stop 05/01/17 at 13:22; Status DC Lidocaine/Sodium Bicarbonate (Buffered Lidocaine 1%) 20 ml STK-MED ONCE IJ ; Start 05/01/17 at 13:22; Stop 05/01/17 at 13:23; Status DC Heparin Sodium/ Sodium Chloride 500 ml @ As Directed STK-MED ONCE .ROUTE ; Start 05/01/17 at 13:22; Stop 05/01/17 at 13:23; Status DC Lidocaine/Sodium Bicarbonate (Buffered Lidocaine 1%) 3 ml 1X ONCE IJ Last administered on 05/01/17 14:03; Start 05/01/17 at 13:30; Stop 05/01/17 at 13:31 ; Status DC Heparin Sodium/ Sodium Chloride 60 unit 1X ONCE IV Last administered on 14:03; Start 05/01/17 at 13:30; Stop 05/01/17 at 13:31; Status DC Heparin Sodium (Porcine) (Heparin Sodium) 2,500 unit 1X ONCE INT CAT Last administered on 05/01/17 13:30; Start 05/01/17 at 13:30; Stop 05/01/17 at 13:31 ; Status DC Sodium Chloride 1,000 ml @ 100 mls/hr Q10H IV Last administered on 05/05/17 08:00; Start 05/01/17 at 14:00; Stop 05/05/17 at 11:16; Status DC Ceftriaxone Sodium 1 gm/ Sodium Chloride 50 ml @ 100 mls/hr Q24H IV Last administered on 05/06/17 15:44; Start 05/01/17 at 14:00 Sodium Chloride 1,000 ml @ 1,000 mls/hr Q1H PRN IV hypotension; Start 05/01/17 at 18:50; Stop 05/02/17 at 00:49; Status DC Sodium Chloride (Normal Saline Flush) 10 ml 1X PRN PRN IV AP catheter pack; Start 05/01/17 at 19:00; Stop 05/02/17 at 18:59; Status DC Sodium Chloride (Normal Saline Flush) 10 ml 1X PRN PRN IV BUZZSAW OPERATOR catheter pack; Start 05/01/17 at 19:00; Stop 05/02/17 at 18:59; Status DC Sodium Chloride 1,000 ml @ 400 mls/hr Q2H30M PRN IV PATENCY; Start 05/01/17 at 18:50; Stop 05/02/17 at 06:49; Status DC Info (PHARMACY MONITORING -- do not chart) 1 each PRN DAILY PRN MC SEE COMMENTS ; Start 05/01/17 at 19:00; Status UNV Info (PHARMACY MONITORING -- do not chart) 1 each PRN DAILY PRN MC SEE COMMENTS ; Start 05/01/17 at 19:00; Stop 05/03/17 at 07:59; Status DC Apixaban (Eliquis) 5 mg BID PO Last administered on 05/07/17 09:23; Start 05/02 at 09:00 Atorvastatin Calcium (Lipitor) 20 mg QHS PO Last administered on 05/06/17 22:58 ; Start 05/02/17 at 21:00 Carvedilol (Coreg) 12.5 mg DAILY PO Last administered on 05/05/17 08:29; Start 05/02/17 at 09:00; Stop 05/05/17 at 14:06; Status DC Lidocaine (Lidoderm) 1 patch DAILY TP Last administered on 05/07/17 09:20; Start 05/02/17 at 09:00 Sotalol HCl (Betapace) 120 mg DAILY PO Last administered on 05/07/17 09:24; Start 05/02/17 at 09:00 Tizanidine HCl (Zanaflex) 4 mg Q8HRS PO Last administered on 05/07/17 06:26; Start 05/02/17 at 09:30 Tramadol HCl (Ultram) 50 mg PRN Q6HRS PRN PO MODERATE PAIN Last administered on 05/04/17 04:37; Start 05/02/17 at 09:00 Furosemide (Lasix) 20 mg 1X ONCE IVP ; Start 05/02/17 at 09:30; Stop 05/02/17 at 09:40; Status DC Methylprednisolone Sodium Succinate (SOLU-Medrol 125MG VIAL) 125 mg 1X ONCE IV ; Start 05/02/17 at 09:30; Stop 05/02/17 at 09:40; Status DC Info (Anti-Coagulation Monitoring By Pharmacy) 1 each PRN DAILY PRN MC SEE COMMENTS Last administered on 05/05/17 13:59; Start 05/02/17 at 13:00; Stop at 14:06; Status DC Sodium Chloride 1,000 ml @ 1,000 mls/hr Q1H PRN IV hypotension; Start 05/02/17 at 15:13; Stop 05/02/17 at 21:12; Status DC Info (PHARMACY MONITORING -- do not chart) 1 each PRN DAILY PRN MC SEE COMMENTS ; Start 05/02/17 at 15:15 Docusate Sodium (Colace) 100 mg DAILY PO Last administered on 05/05/17 08:29; Start 05/03/17 at 18:00; Stop 05/05/17 at 14:06; Status DC Magnesium Citrate (Citroma) 296 ml 1X ONCE PO ; Start 05/04/17 at 12:00; Stop 05/04/17 at 12:01; Status DC Polyethylene Glycol (miraLAX PACKET) 17 gm DAILY PO Last administered on 09:24; Start 05/04/17 at 12:00 Senna/Docusate Sodium (Senna Plus) 1 tab BID PO Last administered on 05/07/17 09:22; Start 05/05/17 at 21:00 Docusate Sodium (Colace) 100 mg BID PO Last administered on 05/07/17 09:22; Start 05/05/17 at 11:00 Magnesium Hydroxide (Milk Of Magnesia) 2,400 mg PRN Q12HR PRN PO CONSTIPATION; Start 05/05/17 at 10:30 Bisacodyl (Dulcolax Supp) 10 mg PRN DAILY PRN [place] CONSTIPATION Last administered on 05/05/17 15:33; Start 05/05/17 at 10:30 Amino Acids/ Glycerin/ Electrolytes 1,000 ml @ 80 mls/hr [id number] IV Last administered on 05/06/17 05:38; Start 05/05/17 at 11:45 Magnesium Sulfate/ Dextrose 50 ml @ 25 mls/hr PRN DAILY PRN IV for Mag < 1.7 on am labs; Start 05/05/17 at 12:45 Carvedilol (Coreg) 6.25 mg BIDWMEALS PO Last administered on 05/06/17 09:38; Start 05/05/17 at 17:00; Stop 05/06/17 at 12:50; Status DC Heparin Sodium (Porcine) (Heparin Sq) 5,000 unit Q8HRS SQ ; Start 05/05/17 at 22 :00; Stop 05/05/17 at 22:00; Status DC Magnesium Sulfate/ Dextrose 50 ml @ 25 mls/hr 1X ONCE IV Last administered on 05/06/17 09:39; Start 05/06/17 at 08:45; Stop 05/06/17 at 10:44; Status DC Iron Sucrose 200 mg/Sodium Chloride 110 ml @ 55 mls/hr 3X/WEEK IV Last administered on 05/07/17 09:19; Start 05/07/17 at 09:00; Stop 05/16/17 at 10:59 Potassium Phosphate 13.6 mmol/Sodium Chloride 104.5333 ml @ 52.267 m... 1X ONCE IV Last administered on 05/06/17 11:53; Start 05/06/17 at 11:00; Stop at 12:59; Status DC Sodium Phosphate 20 mmol/Dextrose 256.6667 ml @ 64.167 m... 1X ONCE IV Last administered on 05/06/17 17:11; Start 05/06/17 at 11:00; Stop 05/06/17 at 14:59; Status DC Carvedilol (Coreg) 3.125 mg BIDWMEALS PO Last administered on 05/07/17 09:24; Start 05/06/17 at 17:00 Ferrous Sulfate (Feosol) 325 mg [id number] PO ; Start 05/08/17 at 08:00 Active Scripts Active Carvedilol 3.125 Mg Tablet 3.125 Mg PO BIDWMEALS 30 Days Reported Tizanidine Hcl 4 Mg Tablet 1 Tab PO Q8HRS Atorvastatin Calcium 20 Mg Tablet 1 Tab PO DAILY Sotalol (Sotalol Hcl) 80 Mg Tablet 120 Mg PO DAILY Tramadol Hcl 50 Mg Tablet 50 Mg PO Q6H PRN Eliquis (Apixaban) 5 Mg Tablet 5 Mg PO DAILY Lidocaine 1 Each Adh..patch 1 Each TP Vitals/I & O Vital Sign - Last 24 Hours 05/06/17 05/06/17 05/06/17 05/06/17 15:00 17:11 19:00 20:00 Temp 98.7 98.6 98.7 98.6 Pulse 63 63 63 Resp 18 20 B/P (MAP) 125/60 (81) 125/60 126/60 (82) Pulse Ox 95 100 O2 Delivery Room Air Nasal Cannula Room Air O2 Flow Rate 2.0 2.0 05/06/17 05/07/17 05/07/17 05/07/17 23:05 07:00 09:23 09:24 Temp 98.2 97.7 98.2 97.7 Pulse 63 71 71 Resp 20 18 6 B/P (MAP) 103/62 (76) 134/68 (90) 134/68 Pulse Ox 100 99 O2 Delivery Room Air Nasal Cannula Room Air O2 Flow Rate 2.0 2.0 05/07/17 05/07/17 09:24 10:45 Temp 98.9 98.9 Pulse 71 68 Resp 18 B/P (MAP) 134/68 138/69 (92) Pulse Ox 92 O2 Delivery Room Air Intake and Output 05/06/17 05/06/17 05/07/17 15:00 23:00 07:00 Intake Total 0 ml 326.6667 ml 400 ml Output Total 450 ml Balance 0 ml 326.6667 ml -50 ml LAXMI JIMENEZ MD May 07, 2017 12:08
--- NOTE | 2017-05-07 13:12 | PDOC ---
SUBJECTIVE ROS RINKU/ CKD III doing OK, still drowsy CVS: no Orthopnea, no CP RESP: no SOB, no TRAYLOR GI: no Nausea, no Vomiting : no Dysuria, no Urgency - had hope in p alce OBJECTIVE Vital Signs Vital Signs Date Time Temp Pulse Resp B/P (MAP) Pulse Ox O2 Delivery O2 Flow Rate FiO2 05/07/17 10:45 98.9 68 18 138/69 (92) 92 Room Air 98.9 05/07/17 07:00 2.0 I & 0 Intake and Output 05/07/17 07:00 Intake Total 726.6667 ml Output Total 450 ml Balance 276.6667 ml Intake Oral 470 ml IV Total 256.6667 ml Output Urine Total 450 ml # Voids 6 PHYSICAL EXAM Physical Exam GEN: Awake, Oriented x 1? ; somewhat drowsy , In no current distress EYES: Vision Unchanged, Conjunctiva Normal EN: No EN Drainage, Mucous Membranes moist NECK: no JVD, + JVP, Supple, no Thyromegaly CVS: S1S2, + Murmur, No Gallop, No Rub,no Edema RESP: no Rales, no Rhonchi,no Acc. Muscle Use GI: BS + ve, NO Bruit, Non Tender, Non Distended : no CVA tenderness, no Suprapubic Tenderness DIAGNOSIS/ASSESSMENT Assessment & Plan RINKU - improving. UO is good without hope CKD III - Current fluid and E-lyte status does not necessitate emergent need for dialysis. Will re-evaluate for dialysis in the am. Do not anticipate need for same given improvement in Creat. watch after D/c hope - baseline Creat is NA inour system ^ed Na - resolved lowish isabella - reval after correcting mag as done; ALb is very low too Fe def ANEMIA: IV Iron; Aranesp as needed - hgb stable from yest to today HypoALbuminemia - Pt eating better now, watch on PPN for now; some due to ? proteinuria too Low Phos - replaced IV, watch on current PO HTN: Current BP meds as reviewed. See orders for changes. Drowsiness - unclear etio - checking UA for UTI COMMENT/RELEVANT DATA Meds Current Medications Medications (Trade) Dose Ordered Sig/Toñito Start Time Stop Time Status Last Admin Dose Admin Acetaminophen (Tylenol) 500 mg PRN Q6HRS PRN 05/01/17 08:00 Acetaminophen/ Hydrocodone Bitart (Lortab 5/325) 1 tab PRN Q4HRS PRN 05/01/17 08:00 05/07/17 09:23 1 TAB Amino Acids/ Glycerin/ Electrolytes 1,000 ml @ 80 mls/hr [id number] 05/05/17 11:45 05/06/17 05:38 80 MLS/HR Apixaban (Eliquis) 5 mg BID 05/02/17 09:00 05/07/17 09:23 5 MG Atorvastatin Calcium (Lipitor) 20 mg QHS 05/02/17 21:00 05/06/17 22:58 20 MG Bisacodyl (Dulcolax Supp) 10 mg PRN DAILY PRN 05/05/17 10:30 05/05/17 15:33 10 MG Carvedilol (Coreg) 3.125 mg BIDWMEALS 05/06/17 17:00 05/07/17 09:24 3.125 MG Ceftriaxone Sodium 1 gm/ Sodium Chloride 50 ml @ 100 mls/hr Q24H 05/01/17 14:00 05/06/17 15:44 100 MLS/HR Docusate Sodium (Colace) 100 mg BID 05/05/17 11:00 05/07/17 09:22 100 MG Ferrous Sulfate (Feosol) 325 mg BIDWMEALS 05/10/17 08:00 Furosemide (Lasix) 20 mg 1X ONCE 05/02/17 09:30 05/02/17 09:40 DC Heparin Sodium (Porcine) (Heparin Sodium) 2,500 unit 1X ONCE 05/01/17 13:30 05/01/17 13:31 DC 05/01/17 13:30 2,800 UNIT Heparin Sodium (Porcine) (Heparin Sq) 5,000 unit Q8HRS 05/05/17 22:00 05/05/17 22:00 DC Heparin Sodium/ Sodium Chloride 60 unit 1X ONCE 05/01/17 13:30 05/01/17 13:31 DC 05/01/17 14:03 60 UNIT Info (Anti-Coagulation Monitoring By Pharmacy) 1 each PRN DAILY PRN 05/02/17 13:00 05/05/17 14:06 DC 05/05/17 13:59 1 EACH Info (PHARMACY MONITORING -- do not chart) 1 each PRN DAILY PRN 05/02/17 15:15 Iron Sucrose 200 mg/Sodium Chloride 110 ml @ 55 mls/hr 3X/WEEK 05/07/17 09:00 05/16/17 10:59 05/07/17 09:19 55 MLS/HR Lidocaine (Lidoderm) 1 patch DAILY 05/02/17 09:00 05/07/17 09:20 1 PATCH Lidocaine/Sodium Bicarbonate (Buffered Lidocaine 1%) 3 ml 1X ONCE 05/01/17 13:30 05/01/17 13:31 DC 05/01/17 14:03 3 ML Magnesium Hydroxide (Milk Of Magnesia) 2,400 mg PRN Q12HR PRN 05/05/17 10:30 Magnesium Citrate (Citroma) 296 ml 1X ONCE 05/04/17 12:00 05/04/17 12:01 DC Magnesium Sulfate/ Dextrose 50 ml @ 25 mls/hr 1X ONCE 05/06/17 08:45 05/06/17 10:44 DC 05/06/17 09:39 25 MLS/HR Methylprednisolone Sodium Succinate (SOLU-Medrol 125MG VIAL) 125 mg 1X ONCE 05/02/17 09:30 05/02/17 09:40 DC Morphine Sulfate 2 mg PRN Q2HR PRN 05/01/17 01:30 05/05/17 18:11 2 MG Ondansetron HCl (Zofran) 4 mg PRN Q6HRS PRN 05/01/17 01:30 Polyethylene Glycol (miraLAX PACKET) 17 gm DAILY 05/04/17 12:00 05/07/17 09:24 17 GM Potassium Phosphate 13.6 mmol/Sodium Chloride 104.5333 ml @ 52.267 m... 1X ONCE 05/06/17 11:00 05/06/17 12:59 DC 05/06/17 11:53 52.267 MLS/HR Senna/Docusate Sodium (Senna Plus) 1 tab BID 05/05/17 21:00 05/07/17 09:22 1 TAB Sodium Bicarbonate 150 meq/Sterile Water 1,150 ml @ 125 mls/hr Q9H12M 05/01/17 01:30 05/01/17 13:29 DC 05/01/17 02:28 125 MLS/HR Sodium Chloride 1,000 ml @ 1,000 mls/hr Q1H PRN 05/02/17 15:13 05/02/17 21:12 DC Sodium Chloride (Normal Saline Flush) 10 ml 1X PRN PRN 05/01/17 19:00 05/02/17 18:59 DC Sodium Phosphate 20 mmol/Dextrose 256.6667 ml @ 64.167 m... 1X ONCE 05/06/17 11:00 05/06/17 14:59 DC 05/06/17 17:11 64.167 MLS/HR Sotalol HCl (Betapace) 120 mg DAILY 05/02/17 09:00 05/07/17 09:24 120 MG Tizanidine HCl (Zanaflex) 4 mg Q8HRS 05/02/17 09:30 05/07/17 06:26 4 MG Tramadol HCl (Ultram) 50 mg PRN Q6HRS PRN 05/02/17 09:00 05/04/17 04:37 50 MG Lab Laboratory Tests Test 05/06/17 22:50 05/07/17 03:48 Urine Collection Type Unknown Urine Color Yellow Urine Clarity Cloudy Urine pH 6.0 Urine Specific Sebastian 1.010 Urine Protein 30 mg/dL (NEG-TRACE) Urine Glucose (UA) Negative mg/dL (NEG) Urine Ketones (Stick) Negative mg/dL (NEG) Urine Blood Moderate (NEG) Urine Nitrite Negative (NEG) Urine Bilirubin Negative (NEG) Urine Urobilinogen Dipstick 0.2 mg/dL (0.2 mg/dL) Urine Leukocyte Esterase Negative (NEG) Urine RBC Tntc /HPF (0-2) Urine WBC Occ /HPF (0-4) Urine Squamous Epithelial Cells Occ /LPF Urine Bacteria 0 /HPF (0-FEW) Urine Hyaline Casts Many /HPF White Blood Count 7.1 x10^3/uL (4.0-11.0) Red Blood Count 2.41 x10^6/uL (4.30-5.70) Hemoglobin 7.1 g/dL (13.0-17.5) Hematocrit 21.1 % (39.0-53.0) Mean Corpuscular Volume 88 fL (79-100) Mean Corpuscular Hemoglobin 29 pg (25-35) Mean Corpuscular Hemoglobin Concent 33 g/dL (31-37) Red Cell Distribution Width 15.5 % (11.5-14.5) Platelet Count 165 x10^3/uL (140-400) Neutrophils (%) (Auto) 71 % (31-73) Lymphocytes (%) (Auto) 16 % (24-48) Monocytes (%) (Auto) 9 % (0-9) Eosinophils (%) (Auto) 4 % (0-3) Basophils (%) (Auto) 1 % (0-3) Neutrophils # (Auto) 5.1 x10^3uL (1.8-7.7) Lymphocytes # (Auto) 1.1 x10^3/uL (1.0-4.8) Monocytes # (Auto) 0.6 x10^3/uL (0.0-1.1) Eosinophils # (Auto) 0.3 x10^3/uL (0.0-0.7) Basophils # (Auto) 0.0 x10^3/uL (0.0-0.2) Sodium Level 144 mmol/L (136-145) Potassium Level 4.0 mmol/L (3.5-5.1) Chloride Level 112 mmol/L (98-107) Carbon Dioxide Level 24 mmol/L (21-32) Anion Gap 8 (6-14) Blood Urea Nitrogen 23 mg/dL (8-26) Creatinine 1.7 mg/dL (0.7-1.3) Estimated GFR (Cockcroft-Gault) 48.0 Glucose Level 97 mg/dL (70-99) Calcium Level 7.9 mg/dL (8.5-10.1) Phosphorus Level 3.3 mg/dL (2.6-4.7) Magnesium Level 2.2 mg/dL (1.8-2.4) Albumin 1.9 g/dL (3.4-5.0) Vitamin B12 Level 1152 pg/mL (247-911) Serum Folate 3.54 ng/ml (3.2-20.0) LILA SUBRAMANIAN MD May 07, 2017 13:12
[2017-05-07] MEDS ORDERED: ANTI-COAG MONITOR BY PHARMACY. MC PRN (14:45)
[2017-05-07 15:13] VITALS: BP 116/58
[2017-05-07 19:00] VITALS: BP 121/58
[2017-05-07] MEDS: ATORVASTATIN CALCIUM 20 MG TABLET PO SCH (20:53)
[2017-05-07] MEDS ORDERED: TEMAZEPAM 7.5 MG CAPSULE PO PRN (21:15)
[2017-05-07 23:01] VITALS: BP 139/63
[2017-05-08 03:00] VITALS: BP 138/61
[2017-05-08] MEDS: tiZANidine 4 MG TABLET. PO SCH (05:44)
[2017-05-08] MEDS: AMINO AC 3%/ELECTROLYTE/GLYCER 1,000 ML IV SCH (05:48)
[2017-05-08 06:00] LABS: BASO # 0.1 x10^3/uL (0.0-0.2); BASO % 1 % (0-3); EOS % 3 % (0-3); HEMATOCRIT 21.4 % (39.0-53.0); HEMOGLOBIN 7.1 g/dL (13.0-17.5); LYMPH # 1.2 x10^3/uL (1.0-4.8); LYMPH % 19 % (24-48); MEAN CORPUSCULAR HEMOGLOBIN 29 pg (25-35); MEAN CORPUSCULAR HGB CONC 33 g/dL (31-37); MEAN CORPUSCULAR VOLUME 88 fL (79-100); MONO % 9 % (0-9); NEUT % 68 % (31-73); PLATELET COUNT 192 x10^3/uL (140-400); RED BLOOD COUNT 2.43 x10^6/uL (4.30-5.70); RED CELL DISTRIBUTION WIDTH 15.6 % (11.5-14.5); WHITE BLOOD COUNT 6.4 x10^3/uL (4.0-11.0)
[2017-05-08 06:13] LABS: CALCIUM 7.6 mg/dL (8.5-10.1); CREATININE 1.5 mg/dL (0.7-1.3); GFR 55.5; PHOSPHORUS 2.5 mg/dL (2.6-4.7); POTASSIUM 4.4 mmol/L (3.5-5.1)
[2017-05-08 07:00] VITALS: BP 134/68
[2017-05-08] MEDS ORDERED: FERROUS SULFATE 325 MG TABLET. PO SCH (08:00)
[2017-05-08] MEDS: LIDOCAINE (700MG/PATCH) PATCH. TP SCH (08:55)
[2017-05-08] MEDS: DOCUSATE SODIUM 100 MG CAPSULE. PO SCH (08:55)
[2017-05-08] MEDS: APIXABAN 5 MG TABLET. PO SCH (08:55)
[2017-05-08] MEDS: SOTALOL 80 MG TABLET. PO SCH (08:56)
[2017-05-08] MEDS: HYDROcodone/APAP 5/325MG 1 TAB TABLET PO PRN (08:56)
[2017-05-08] MEDS: CARVEDILOL 3.125 MG TABLET. PO SCH (08:56)
[2017-05-08] MEDS ORDERED: SODIUM PHOSPHATE 20 MMOL in IV DEXTROSE 5% 250 ML IV ONE (09:00)
[2017-05-08] MEDS: SENNOSIDES/DOCUSATE 8.6/50MG TABLET. PO SCH (09:00)
[2017-05-08] MEDS: POLYETHYLENE GLYCOL 3350 17 GM PACKET. PO SCH (09:00)
[2017-05-08] MEDS ORDERED: FERR325T72 PO (09:19)
--- NOTE | 2017-05-08 09:33 | PDOC ---
PROGRESS NOTES Subjective Subjective No new complaints. Objective Objective Vital Signs Date Time Temp Pulse Resp B/P (MAP) Pulse Ox O2 Delivery O2 Flow Rate FiO2 05/08/17 08:56 70 134/68 05/08/17 08:56 Room Air 05/08/17 07:00 98.7 18 99 98.7 05/07/17 08:00 2.0 Intake and Output 05/08/17 07:00 Intake Total 240 ml Output Total 1 ml Balance 239 ml Intake Oral 240 ml Urine/Stool Mix 1 ml # Voids 6 # Bowel Movements 2 Physical Exam Physical Exam He continues with right shoulder pain with movement and tenderness to palpation right shoulder and mobility and self care limitations. Plan Plan of Care To obtain right shoulder x-rays and agree with plans for SNF transfer to help with his mobility and self care limitations. Comment Review of Relevant I have reviewed the following items maranda (where applicable) has been applied. Labs Laboratory Tests Test 05/06/17 22:50 05/07/17 03:48 05/08/17 05:15 Urine Collection Type Unknown Urine Color Yellow Urine Clarity Cloudy Urine pH 6.0 Urine Specific [place] 1.010 Urine Protein 42.0 mg/dL (Not Estab.) Urine Glucose (UA) Negative mg/dL (NEG) Urine Ketones (Stick) Negative mg/dL (NEG) Urine Blood Moderate (NEG) Urine Nitrite Negative (NEG) Urine Bilirubin Negative (NEG) Urine Urobilinogen Dipstick 0.2 mg/dL (0.2 mg/dL) Urine Leukocyte Esterase Negative (NEG) Urine RBC Tntc /HPF (0-2) Urine WBC Occ /HPF (0-4) Urine Squamous Epithelial Cells Occ /LPF Urine Bacteria 0 /HPF (0-FEW) Urine Hyaline Casts Many /HPF Urine Creatinine 94.9 mg/dL (Not Estab.) Urine Protein/Creatinine Ratio 443 mg/g creat (0-200) White Blood Count 7.1 x10^3/uL (4.0-11.0) 6.4 x10^3/uL (4.0-11.0) Red Blood Count 2.41 x10^6/uL (4.30-5.70) 2.43 x10^6/uL (4.30-5.70) Hemoglobin 7.1 g/dL (13.0-17.5) 7.1 g/dL (13.0-17.5) Hematocrit 21.1 % (39.0-53.0) 21.4 % (39.0-53.0) Mean Corpuscular Volume 88 fL (79-100) 88 fL (79-100) Mean Corpuscular Hemoglobin 29 pg (25-35) 29 pg (25-35) Mean Corpuscular Hemoglobin Concent 33 g/dL (31-37) 33 g/dL (31-37) Red Cell Distribution Width 15.5 % (11.5-14.5) 15.6 % (11.5-14.5) Platelet Count 165 x10^3/uL (140-400) 192 x10^3/uL (140-400) Neutrophils (%) (Auto) 71 % (31-73) 68 % (31-73) Lymphocytes (%) (Auto) 16 % (24-48) 19 % (24-48) Monocytes (%) (Auto) 9 % (0-9) 9 % (0-9) Eosinophils (%) (Auto) 4 % (0-3) 3 % (0-3) Basophils (%) (Auto) 1 % (0-3) 1 % (0-3) Neutrophils # (Auto) 5.1 x10^3uL (1.8-7.7) 4.3 x10^3uL (1.8-7.7) Lymphocytes # (Auto) 1.1 x10^3/uL (1.0-4.8) 1.2 x10^3/uL (1.0-4.8) Monocytes # (Auto) 0.6 x10^3/uL (0.0-1.1) 0.6 x10^3/uL (0.0-1.1) Eosinophils # (Auto) 0.3 x10^3/uL (0.0-0.7) 0.2 x10^3/uL (0.0-0.7) Basophils # (Auto) 0.0 x10^3/uL (0.0-0.2) 0.1 x10^3/uL (0.0-0.2) Sodium Level 144 mmol/L (136-145) 143 mmol/L (136-145) Potassium Level 4.0 mmol/L (3.5-5.1) 4.4 mmol/L (3.5-5.1) Chloride Level 112 mmol/L (98-107) 112 mmol/L (98-107) Carbon Dioxide Level 24 mmol/L (21-32) 23 mmol/L (21-32) Anion Gap 8 (6-14) 8 (6-14) Blood Urea Nitrogen 23 mg/dL (8-26) 24 mg/dL (8-26) Creatinine 1.7 mg/dL (0.7-1.3) 1.5 mg/dL (0.7-1.3) Estimated GFR (Cockcroft-Gault) 48.0 55.5 Glucose Level 97 mg/dL (70-99) 93 mg/dL (70-99) Calcium Level 7.9 mg/dL (8.5-10.1) 7.6 mg/dL (8.5-10.1) Phosphorus Level 3.3 mg/dL (2.6-4.7) 2.5 mg/dL (2.6-4.7) Magnesium Level 2.2 mg/dL (1.8-2.4) 2.3 mg/dL (1.8-2.4) Albumin 1.9 g/dL (3.4-5.0) 2.0 g/dL (3.4-5.0) Vitamin B12 Level 1152 pg/mL (247-911) Serum Folate 3.54 ng/ml (3.2-20.0) Laboratory Tests Test 05/08/17 05:15 White Blood Count 6.4 x10^3/uL (4.0-11.0) Red Blood Count 2.43 x10^6/uL (4.30-5.70) Hemoglobin 7.1 g/dL (13.0-17.5) Hematocrit 21.4 % (39.0-53.0) Mean Corpuscular Volume 88 fL (79-100) Mean Corpuscular Hemoglobin 29 pg (25-35) Mean Corpuscular Hemoglobin Concent 33 g/dL (31-37) Red Cell Distribution Width 15.6 % (11.5-14.5) Platelet Count 192 x10^3/uL (140-400) Neutrophils (%) (Auto) 68 % (31-73) Lymphocytes (%) (Auto) 19 % (24-48) Monocytes (%) (Auto) 9 % (0-9) Eosinophils (%) (Auto) 3 % (0-3) Basophils (%) (Auto) 1 % (0-3) Neutrophils # (Auto) 4.3 x10^3uL (1.8-7.7) Lymphocytes # (Auto) 1.2 x10^3/uL (1.0-4.8) Monocytes # (Auto) 0.6 x10^3/uL (0.0-1.1) Eosinophils # (Auto) 0.2 x10^3/uL (0.0-0.7) Basophils # (Auto) 0.1 x10^3/uL (0.0-0.2) Sodium Level 143 mmol/L (136-145) Potassium Level 4.4 mmol/L (3.5-5.1) Chloride Level 112 mmol/L (98-107) Carbon Dioxide Level 23 mmol/L (21-32) Anion Gap 8 (6-14) Blood Urea Nitrogen 24 mg/dL (8-26) Creatinine 1.5 mg/dL (0.7-1.3) Estimated GFR (Cockcroft-Gault) 55.5 Glucose Level 93 mg/dL (70-99) Calcium Level 7.6 mg/dL (8.5-10.1) Phosphorus Level 2.5 mg/dL (2.6-4.7) Magnesium Level 2.3 mg/dL (1.8-2.4) Albumin 2.0 g/dL (3.4-5.0) Medications Current Medications Furosemide (Lasix) 40 mg 1X ONCE IVP Last administered on 05/01/17 02:19; Start 05/01/17 at 01:30; Stop 05/01/17 at 01:31; Status DC Ondansetron HCl (Zofran) 4 mg PRN Q6HRS PRN IV NAUSEA/VOMITING; Start 05/01/17 at 01:30 Morphine Sulfate 2 mg PRN Q2HR PRN IV PAIN Last administered on 05/05/17 18:11 ; Start 05/01/17 at 01:30 Sodium Bicarbonate 150 meq/Sterile Water 1,150 ml @ 125 mls/hr Q9H12M IV Last administered on 05/01/17 02:28; Start 05/01/17 at 01:30; Stop 05/01/17 at 13:29 ; Status DC Acetaminophen/ Hydrocodone Bitart (Lortab 5/325) 1 tab PRN Q4HRS PRN PO SEVERE PAIN Last administered on 05/08/17 08:56; Start 05/01/17 at 08:00 Acetaminophen (Tylenol) 500 mg PRN Q6HRS PRN PO MILD PAIN / TEMP; Start at 08:00 Heparin Sodium (Porcine) (Heparin Sodium) 10,000 unit STK-MED ONCE .ROUTE ; Start 05/01/17 at 13:21; Stop 05/01/17 at 13:22; Status DC Lidocaine/Sodium Bicarbonate (Buffered Lidocaine 1%) 20 ml STK-MED ONCE IJ ; Start 05/01/17 at 13:22; Stop 05/01/17 at 13:23; Status DC Heparin Sodium/ Sodium Chloride 500 ml @ As Directed STK-MED ONCE .ROUTE ; Start 05/01/17 at 13:22; Stop 05/01/17 at 13:23; Status DC Lidocaine/Sodium Bicarbonate (Buffered Lidocaine 1%) 3 ml 1X ONCE IJ Last administered on 05/01/17 14:03; Start 05/01/17 at 13:30; Stop 05/01/17 at 13:31 ; Status DC Heparin Sodium/ Sodium Chloride 60 unit 1X ONCE IV Last administered on 14:03; Start 05/01/17 at 13:30; Stop 05/01/17 at 13:31; Status DC Heparin Sodium (Porcine) (Heparin Sodium) 2,500 unit 1X ONCE INT CAT Last administered on 05/01/17 13:30; Start 05/01/17 at 13:30; Stop 05/01/17 at 13:31 ; Status DC Sodium Chloride 1,000 ml @ 100 mls/hr Q10H IV Last administered on 05/05/17 08:00; Start 05/01/17 at 14:00; Stop 05/05/17 at 11:16; Status DC Ceftriaxone Sodium 1 gm/ Sodium Chloride 50 ml @ 100 mls/hr Q24H IV Last administered on 05/07/17 13:51; Start 05/01/17 at 14:00 Sodium Chloride 1,000 ml @ 1,000 mls/hr Q1H PRN IV hypotension; Start 05/01/17 at 18:50; Stop 05/02/17 at 00:49; Status DC Sodium Chloride (Normal Saline Flush) 10 ml 1X PRN PRN IV AP catheter pack; Start 05/01/17 at 19:00; Stop 05/02/17 at 18:59; Status DC Sodium Chloride (Normal Saline Flush) 10 ml 1X PRN PRN IV [employer] catheter pack; Start 05/01/17 at 19:00; Stop 05/02/17 at 18:59; Status DC Sodium Chloride 1,000 ml @ 400 mls/hr Q2H30M PRN IV PATENCY; Start 05/01/17 at 18:50; Stop 05/02/17 at 06:49; Status DC Info (PHARMACY MONITORING -- do not chart) 1 each PRN DAILY PRN MC SEE COMMENTS ; Start 05/01/17 at 19:00; Status UNV Info (PHARMACY MONITORING -- do not chart) 1 each PRN DAILY PRN MC SEE COMMENTS ; Start 05/01/17 at 19:00; Stop 05/03/17 at 07:59; Status DC Apixaban (Eliquis) 5 mg BID PO Last administered on 05/08/17 08:55; Start 05/02 at 09:00 Atorvastatin Calcium (Lipitor) 20 mg QHS PO Last administered on 05/07/17 20:53 ; Start 05/02/17 at 21:00 Carvedilol (Coreg) 12.5 mg DAILY PO Last administered on 05/05/17 08:29; Start 05/02/17 at 09:00; Stop 05/05/17 at 14:06; Status DC Lidocaine (Lidoderm) 1 patch DAILY TP Last administered on 05/08/17 08:55; Start 05/02/17 at 09:00 Sotalol HCl (Betapace) 120 mg DAILY PO Last administered on 05/08/17 08:56; Start 05/02/17 at 09:00 Tizanidine HCl (Zanaflex) 4 mg Q8HRS PO Last administered on 05/08/17 05:44; Start 05/02/17 at 09:30 Tramadol HCl (Ultram) 50 mg PRN Q6HRS PRN PO MODERATE PAIN Last administered on 05/04/17 04:37; Start 05/02/17 at 09:00 Furosemide (Lasix) 20 mg 1X ONCE IVP ; Start 05/02/17 at 09:30; Stop 05/02/17 at 09:40; Status DC Methylprednisolone Sodium Succinate (SOLU-Medrol 125MG VIAL) 125 mg 1X ONCE IV ; Start 05/02/17 at 09:30; Stop 05/02/17 at 09:40; Status DC Info (Anti-Coagulation Monitoring By Pharmacy) 1 each PRN DAILY PRN MC SEE COMMENTS Last administered on 05/05/17 13:59; Start 05/02/17 at 13:00; Stop at 14:06; Status DC Sodium Chloride 1,000 ml @ 1,000 mls/hr Q1H PRN IV hypotension; Start 05/02/17 at 15:13; Stop 05/02/17 at 21:12; Status DC Info (PHARMACY MONITORING -- do not chart) 1 each PRN DAILY PRN MC SEE COMMENTS ; Start 05/02/17 at 15:15; Status Cancel Docusate Sodium (Colace) 100 mg DAILY PO Last administered on 05/05/17 08:29; Start 05/03/17 at 18:00; Stop 05/05/17 at 14:06; Status DC Magnesium Citrate (Citroma) 296 ml 1X ONCE PO ; Start 05/04/17 at 12:00; Stop 05/04/17 at 12:01; Status DC Polyethylene Glycol (miraLAX PACKET) 17 gm DAILY PO Last administered on 09:24; Start 05/04/17 at 12:00 Senna/Docusate Sodium (Senna Plus) 1 tab BID PO Last administered on 05/07/17 20:53; Start 05/05/17 at 21:00 Docusate Sodium (Colace) 100 mg BID PO Last administered on 05/08/17 08:55; Start 05/05/17 at 11:00 Magnesium Hydroxide (Milk Of Magnesia) 2,400 mg PRN Q12HR PRN PO CONSTIPATION; Start 05/05/17 at 10:30 Bisacodyl (Dulcolax Supp) 10 mg PRN DAILY PRN OR CONSTIPATION Last administered on 05/05/17 15:33; Start 05/05/17 at 10:30 Amino Acids/ Glycerin/ Electrolytes 1,000 ml @ 80 mls/hr [id number] IV Last administered on 05/08/17 05:48; Start 05/05/17 at 11:45; Stop 05/08/17 at 08:04; Status DC Magnesium Sulfate/ Dextrose 50 ml @ 25 mls/hr PRN DAILY PRN IV for Mag < 1.7 on am labs; Start 05/05/17 at 12:45 Carvedilol (Coreg) 6.25 mg BIDWMEALS PO Last administered on 05/06/17 09:38; Start 05/05/17 at 17:00; Stop 05/06/17 at 12:50; Status DC Heparin Sodium (Porcine) (Heparin Sq) 5,000 unit Q8HRS SQ ; Start 05/05/17 at 22 :00; Stop 05/05/17 at 22:00; Status DC Magnesium Sulfate/ Dextrose 50 ml @ 25 mls/hr 1X ONCE IV Last administered on 05/06/17 09:39; Start 05/06/17 at 08:45; Stop 05/06/17 at 10:44; Status DC Iron Sucrose 200 mg/Sodium Chloride 110 ml @ 55 mls/hr 3X/WEEK IV Last administered on 05/07/17 09:19; Start 05/07/17 at 09:00; Stop 05/16/17 at 10:59 Potassium Phosphate 13.6 mmol/Sodium Chloride 104.5333 ml @ 52.267 m... 1X ONCE IV Last administered on 05/06/17 11:53; Start 05/06/17 at 11:00; Stop at 12:59; Status DC Sodium Phosphate 20 mmol/Dextrose 256.6667 ml @ 64.167 m... 1X ONCE IV Last administered on 05/06/17 17:11; Start 05/06/17 at 11:00; Stop 05/06/17 at 14:59; Status DC Carvedilol (Coreg) 3.125 mg BIDWMEALS PO Last administered on 05/08/17 08:56; Start 05/06/17 at 17:00 Ferrous Sulfate (Feosol) 325 mg DAILYWBKFT PO Last administered on 05/08/17 08: 55; Start 05/08/17 at 08:00; Stop 05/10/17 at 08:00 Ferrous Sulfate (Feosol) 325 mg BIDWMEALS PO ; Start 05/10/17 at 08:00 Info (Anti-Coagulation Monitoring By Pharmacy) 1 each PRN DAILY PRN MC SEE COMMENTS Last administered on 05/07/17 16:15; Start 05/07/17 at 14:45 Temazepam (Restoril) 7.5 mg PRN QHS PRN PO INSOMNIA Last administered on 22:41; Start 05/07/17 at 21:15 Sodium Phosphate 20 mmol/Dextrose 256.6667 ml @ 64.167 m... 1X ONCE IV Last administered on 05/08/17 08:57; Start 05/08/17 at 09:00; Stop 05/08/17 at 12:59 Active Scripts Active Feosol (Ferrous Sulfate) 325 Mg Tablet 325 Mg PO DAILYWBKFT 30 Days Carvedilol 3.125 Mg Tablet 3.125 Mg PO BIDWMEALS 30 Days Reported Tizanidine Hcl 4 Mg Tablet 1 Tab PO Q8HRS Atorvastatin Calcium 20 Mg Tablet 1 Tab PO DAILY Sotalol (Sotalol Hcl) 80 Mg Tablet 120 Mg PO DAILY Tramadol Hcl 50 Mg Tablet 50 Mg PO Q6H PRN Eliquis (Apixaban) 5 Mg Tablet 5 Mg PO DAILY Lidocaine 1 Each Adh..patch 1 Each TP Vitals/I & O Vital Sign - Last 24 Hours 05/07/17 05/07/17 05/07/17 05/07/17 10:23 10:45 15:13 16:32 Temp 98.9 98.4 98.9 98.4 Pulse 68 62 62 Resp 16 18 18 B/P (MAP) 138/69 (92) 116/58 (77) 115/58 Pulse Ox 92 97 O2 Delivery Room Air Room Air 05/07/17 05/07/17 05/07/17 05/07/17 19:00 20:54 22:44 23:01 Temp 97.9 99.7 97.9 99.7 Pulse 64 62 Resp 20 20 20 B/P (MAP) 121/58 (79) 139/63 (88) Pulse Ox 96 98 O2 Delivery Room Air Room Air Room Air Room Air 05/08/17 05/08/17 05/08/17 05/08/17 03:00 07:00 08:56 08:56 Temp 99.4 98.7 99.4 98.7 Pulse 65 70 70 Resp 20 18 B/P (MAP) 138/61 (86) 134/68 (90) 134/68 Pulse Ox 96 99 O2 Delivery Room Air Room Air Room Air 05/08/17 08:56 Pulse 70 B/P (MAP) 134/68 Intake and Output 05/07/17 05/07/17 05/08/17 15:00 23:00 07:00 Intake Total 240 ml 0 ml Output Total 1 ml Balance 239 ml 0 ml ANNA MARIE DOBBS MD May 08, 2017 09:32
[2017-05-08] MEDS ORDERED: tiZANidine 4 MG TABLET. PO PRN (10:00)
--- NOTE | 2017-05-08 10:25 | PDOC ---
SUBJECTIVE ROS RINKU/ CKD III doign OK overall, plans for D/c to Prov Pl ntoed CVS: no Orthopnea, no CP RESP: no SOB, no TRAYLOR GI: no Nausea, no Vomiting : no Dysuria, no Urgency OBJECTIVE Vital Signs Vital Signs Date Time Temp Pulse Resp B/P (MAP) Pulse Ox O2 Delivery O2 Flow Rate FiO2 05/08/17 08:56 70 134/68 05/08/17 08:56 Room Air 05/08/17 07:00 98.7 18 99 98.7 05/07/17 08:00 2.0 I & 0 Intake and Output 05/08/17 07:00 Intake Total 240 ml Output Total 1 ml Balance 239 ml Intake Oral 240 ml Urine/Stool Mix 1 ml # Voids 6 # Bowel Movements 2 PHYSICAL EXAM Physical Exam GEN: Awake, Oriented x 1? ;more alert now, In no current distress EYES: Vision Unchanged, Conjunctiva Normal EN: No EN Drainage, Mucous Membranes moist NECK: no JVD, + JVP, Supple, no Thyromegaly CVS: S1S2, + Murmur, No Gallop, No Rub,no Edema RESP: no Rales, no Rhonchi,no Acc. Muscle Use GI: BS + ve, NO Bruit, Non Tender, Non Distended : no CVA tenderness, no Suprapubic Tenderness DIAGNOSIS/ASSESSMENT Assessment & Plan RINKU - improving off of Diuretics and JAZMIN-i. UO is not well documented without hope CKD III - baseline Creat is NA inour system ^ed Na - resolved for now. ct PPN lowish isabella - reval after correcting mag as done; ALb is very low too Fe def ANEMIA: IV Iron; Aranesp as needed - hgb stable from yest to today HypoALbuminemia - Pt eating better now, watch on PPN for now; some due to ? proteinuria too Low Phos - being replaced IV, watch on current PO HTN: Current BP meds as reviewed. doing much better off of Diuretics and JAZMIN- i - May need eval for Rv HTN if it rises AbN UA suspicious for UTI + Lo Grd fever (but no Cx done yet on UA). on rocephin for now COMMENT/RELEVANT DATA Meds Current Medications Medications (Trade) Dose Ordered Sig/Toñito Start Time Stop Time Status Last Admin Dose Admin Acetaminophen (Tylenol) 500 mg PRN Q6HRS PRN 05/01/17 08:00 Acetaminophen/ Hydrocodone Bitart (Lortab 5/325) 1 tab PRN Q4HRS PRN 05/01/17 08:00 05/08/17 08:56 1 TAB Amino Acids/ Glycerin/ Electrolytes 1,000 ml @ 80 mls/hr [id number] 05/05/17 11:45 05/08/17 08:04 DC 05/08/17 05:48 80 MLS/HR Apixaban (Eliquis) 5 mg BID 05/02/17 09:00 05/08/17 08:55 5 MG Atorvastatin Calcium (Lipitor) 20 mg QHS 05/02/17 21:00 05/07/17 20:53 20 MG Bisacodyl (Dulcolax Supp) 10 mg PRN DAILY PRN 05/05/17 10:30 05/05/17 15:33 10 MG Carvedilol (Coreg) 3.125 mg BIDWMEALS 05/06/17 17:00 05/08/17 08:56 3.125 MG Ceftriaxone Sodium 1 gm/ Sodium Chloride 50 ml @ 100 mls/hr Q24H 05/01/17 14:00 05/07/17 13:51 100 MLS/HR Docusate Sodium (Colace) 100 mg BID 05/05/17 11:00 05/08/17 08:55 100 MG Ferrous Sulfate (Feosol) 325 mg BIDWMEALS 05/10/17 08:00 Furosemide (Lasix) 20 mg 1X ONCE 05/02/17 09:30 05/02/17 09:40 DC Heparin Sodium (Porcine) (Heparin Sodium) 2,500 unit 1X ONCE 05/01/17 13:30 05/01/17 13:31 DC 05/01/17 13:30 2,800 UNIT Heparin Sodium (Porcine) (Heparin Sq) 5,000 unit Q8HRS 05/05/17 22:00 05/05/17 22:00 DC Heparin Sodium/ Sodium Chloride 60 unit 1X ONCE 05/01/17 13:30 05/01/17 13:31 DC 05/01/17 14:03 60 UNIT Info (Anti-Coagulation Monitoring By Pharmacy) 1 each PRN DAILY PRN 05/07/17 14:45 05/07/17 16:15 1 EACH Info (PHARMACY MONITORING -- do not chart) 1 each PRN DAILY PRN 05/02/17 15:15 Cancel Iron Sucrose 200 mg/Sodium Chloride 110 ml @ 55 mls/hr 3X/WEEK 05/07/17 09:00 05/16/17 10:59 05/07/17 09:19 55 MLS/HR Lidocaine (Lidoderm) 1 patch DAILY 05/02/17 09:00 05/08/17 08:55 1 PATCH Lidocaine/Sodium Bicarbonate (Buffered Lidocaine 1%) 3 ml 1X ONCE 05/01/17 13:30 05/01/17 13:31 DC 05/01/17 14:03 3 ML Magnesium Hydroxide (Milk Of Magnesia) 2,400 mg PRN Q12HR PRN 05/05/17 10:30 Magnesium Citrate (Citroma) 296 ml 1X ONCE 05/04/17 12:00 05/04/17 12:01 DC Magnesium Sulfate/ Dextrose 50 ml @ 25 mls/hr 1X ONCE 05/06/17 08:45 05/06/17 10:44 DC 05/06/17 09:39 25 MLS/HR Methylprednisolone Sodium Succinate (SOLU-Medrol 125MG VIAL) 125 mg 1X ONCE 05/02/17 09:30 05/02/17 09:40 DC Morphine Sulfate 2 mg PRN Q2HR PRN 05/01/17 01:30 05/05/17 18:11 2 MG Ondansetron HCl (Zofran) 4 mg PRN Q6HRS PRN 05/01/17 01:30 Polyethylene Glycol (miraLAX PACKET) 17 gm DAILY 05/04/17 12:00 05/07/17 09:24 17 GM Potassium Phosphate 13.6 mmol/Sodium Chloride 104.5333 ml @ 52.267 m... 1X ONCE 05/06/17 11:00 05/06/17 12:59 DC 05/06/17 11:53 52.267 MLS/HR Senna/Docusate Sodium (Senna Plus) 1 tab BID 05/05/17 21:00 05/07/17 20:53 1 TAB Sodium Bicarbonate 150 meq/Sterile Water 1,150 ml @ 125 mls/hr Q9H12M 05/01/17 01:30 05/01/17 13:29 DC 05/01/17 02:28 125 MLS/HR Sodium Chloride 1,000 ml @ 1,000 mls/hr Q1H PRN 05/02/17 15:13 05/02/17 21:12 DC Sodium Chloride (Normal Saline Flush) 10 ml 1X PRN PRN 05/01/17 19:00 05/02/17 18:59 DC Sodium Phosphate 20 mmol/Dextrose 256.6667 ml @ 64.167 m... 1X ONCE 05/08/17 09:00 05/08/17 12:59 05/08/17 08:57 64.167 MLS/HR Sotalol HCl (Betapace) 120 mg DAILY 05/02/17 09:00 05/08/17 08:56 120 MG Temazepam (Restoril) 7.5 mg PRN QHS PRN 05/07/17 21:15 05/07/17 22:41 7.5 MG Tizanidine HCl (Zanaflex) 4 mg PRN Q8HRS PRN 05/08/17 10:00 Tramadol HCl (Ultram) 50 mg PRN Q6HRS PRN 05/02/17 09:00 05/04/17 04:37 50 MG Lab Laboratory Tests Test 05/08/17 05:15 White Blood Count 6.4 x10^3/uL (4.0-11.0) Red Blood Count 2.43 x10^6/uL (4.30-5.70) Hemoglobin 7.1 g/dL (13.0-17.5) Hematocrit 21.4 % (39.0-53.0) Mean Corpuscular Volume 88 fL (79-100) Mean Corpuscular Hemoglobin 29 pg (25-35) Mean Corpuscular Hemoglobin Concent 33 g/dL (31-37) Red Cell Distribution Width 15.6 % (11.5-14.5) Platelet Count 192 x10^3/uL (140-400) Neutrophils (%) (Auto) 68 % (31-73) Lymphocytes (%) (Auto) 19 % (24-48) Monocytes (%) (Auto) 9 % (0-9) Eosinophils (%) (Auto) 3 % (0-3) Basophils (%) (Auto) 1 % (0-3) Neutrophils # (Auto) 4.3 x10^3uL (1.8-7.7) Lymphocytes # (Auto) 1.2 x10^3/uL (1.0-4.8) Monocytes # (Auto) 0.6 x10^3/uL (0.0-1.1) Eosinophils # (Auto) 0.2 x10^3/uL (0.0-0.7) Basophils # (Auto) 0.1 x10^3/uL (0.0-0.2) Sodium Level 143 mmol/L (136-145) Potassium Level 4.4 mmol/L (3.5-5.1) Chloride Level 112 mmol/L (98-107) Carbon Dioxide Level 23 mmol/L (21-32) Anion Gap 8 (6-14) Blood Urea Nitrogen 24 mg/dL (8-26) Creatinine 1.5 mg/dL (0.7-1.3) Estimated GFR (Cockcroft-Gault) 55.5 Glucose Level 93 mg/dL (70-99) Calcium Level 7.6 mg/dL (8.5-10.1) Phosphorus Level 2.5 mg/dL (2.6-4.7) Magnesium Level 2.3 mg/dL (1.8-2.4) Albumin 2.0 g/dL (3.4-5.0) LILA SUBRAMANIAN MD May 08, 2017 10:25
[2017-05-08 10:57] VITALS: BP 129/61
--- NOTE | 2017-05-08 12:15 | PDOC3 ---
Discharge Summary [facility] Date of Admission: May 01, 2017 Discharge Date: May 08, 2017 Admitting Diagnosis 1. RINKU with CKD stage 3 2. AOCD 3. Metabolic acidosis with hyperkalemia better 4 Hyperkalemia with EKG changes resolved 5. Indwelling pace maker 6. Possible dementia, undiagnosed 7. HTN, CAD, CHF, Dsylipidemia, atrial fib, chronic stable UTI , SIRS constipation chronic right shoulder pain , tendonitis normacytic anemia, low iron, ckd3 hypomagnesemia Problems: CONSULTS renal dr. Joy Brief Hospital Course Mr. Nicholas is a 72 old M, mild dementia, was sent from [facility] for rinku. Cr 10. pt got 2 times HD, hope, ivf, Cr improved to 1.5 now. pt feels better, hope out, difficulty to urinate sometime, but bladder scan no urinary retention. also was treated with ceftriaxone x7ds. was found anemia, no active bleeding, iron is low. changed HTN meds dc to snf. dc time 35min General: Alert, Cooperative Heart: Regular rate, Normal S1, Normal S2, No murmurs, Gallops Lungs: Clear, Other (No RRW) Abdomen: Normal bowel sounds, Soft, No tenderness, No hepatosplenomegaly, No masses Extremities: No clubbing, No cyanosis, No edema, Normal pulses,right shoulder tenderness/swelling Skin: No rashes, No significant lesion Problems: Disposition SNF CONDITION AT DISCHARGE: Improved Diet regular Scheduled Apixaban (Eliquis), 5 MG PO DAILY, (Reported) Atorvastatin Calcium (Atorvastatin Calcium), 1 TAB PO DAILY, (Reported) Carvedilol (Carvedilol), 3.125 MG PO BIDWMEALS Ferrous Sulfate (Feosol), 325 MG PO DAILYWBKFT Sotalol Hcl (Sotalol), 120 MG PO DAILY, (Reported) Tizanidine Hcl (Tizanidine Hcl), 1 TAB PO Q8HRS, (Reported) Scheduled PRN Tramadol Hcl (Tramadol Hcl), 50 MG PO Q6H PRN for PAIN, (Reported) Miscellaneous Medications Lidocaine (Lidocaine), 1 EACH TP, (Reported) Discontinued Medications Carvedilol (Carvedilol), 1 TAB PO DAILY, (Reported) Lisinopril (Lisinopril), 1 TAB PO DAILY, (Reported) Spironolactone (Spironolactone), 1 TAB PO DAILY, (Reported) Torsemide (Torsemide), 50 MG PO DAILY, (Reported) Follow Up pcp in 2 weeks LAXMI JIMENEZ MD May 08, 2017 12:15
--- NOTE | 2017-05-08 14:08 | RAD ---
Right shoulder, 3 views, 05/08/2017: History: Shoulder pain The bony structures are demineralized. A right shoulder prosthesis is in place. No fracture or dislocation is evident. IMPRESSION: 1. Prosthetic right humeral head. 2. No acute bony abnormality detected.
[2017-05-10] MEDS ORDERED: FERROUS SULFATE 325 MG TABLET. PO SCH (08:00)
== END 2017-05-08 15:30 | DRG 682 ==
LOC: 1 WEST ICU 05-01 00:05 → 5 SOUTH 05-02 12:54
PROVIDERS: ADMIT Internal Medicine Hematology & Oncology; ATTEND Internal Medicine Hematology & Oncology
PROC: 02HV33Z Insertion of Infusion Device into Superior Vena Cava, Percutaneous Approach (ICD-10-PCS; principal; 2017-05-02)
PROC: B5181ZA Fluoroscopy of Superior Vena Cava using Low Osmolar Contrast, Guidance (ICD-10-PCS; 2017-05-02)
PROC: B548ZZA Ultrasonography of Superior Vena Cava, Guidance (ICD-10-PCS; 2017-05-02)
DX: N17.0 Acute kidney failure with tubular necrosis (principal); G93.41 Metabolic encephalopathy; E87.2 Acidosis; I13.2 Hypertensive heart and chronic kidney disease with heart failure and with stage 5 chronic kidney disease, or end stage renal disease; N39.0 Urinary tract infection, site not specified; R65.10 Systemic inflammatory response syndrome (SIRS) of non-infectious origin without acute organ dysfunction; N18.5 Chronic kidney disease, stage 5; E87.5 Hyperkalemia; I48.2 Chronic atrial fibrillation; I25.10 Atherosclerotic heart disease of native coronary artery without angina pectoris; F03.90 Unspecified dementia, unspecified severity, without behavioral disturbance, psychotic disturbance, mood disturbance, and anxiety; E78.5 Hyperlipidemia, unspecified; E86.0 Dehydration; Z96.611 Presence of right artificial shoulder joint; I50.9 Heart failure, unspecified; J42 Unspecified chronic bronchitis; D63.1 Anemia in chronic kidney disease; K59.00 Constipation, unspecified; E83.42 Hypomagnesemia; G89.29 Other chronic pain; M25.511 Pain in right shoulder; M77.9 Enthesopathy, unspecified; I25.2 Old myocardial infarction; Z86.73 Personal history of transient ischemic attack (TIA), and cerebral infarction without residual deficits; Z95.0 Presence of cardiac pacemaker; D50.9 Iron deficiency anemia, unspecified
CPT/HCPCS: 36415; 36556; 71010; 73030; 76770; 76937; 80048; 80053; 80069; 81001; 82550; 82570; 82607; 82728; 82746; 83540; 83550; 83735; 84100; 84156; 84443; 84550; 85027; 85045; 85651; 86705; 86706; 87340; 87341; 87641; C1892; J0696; J1644; J1756; J1940; J2270; J7030; J7060; 97116; 97530

== ENCOUNTER 2017-06-03 18:26 | Inpatient (IN) | payer MEDICARE, OTHER ==
[~2017-06-03] VITALS: Ht 180.3 cm; Wt 72.1 kg
[~2017-06-03 18:26] MED LIST: APIX5TAB PO; ATOR20TA58 PO; CARV12.52 PO; CARV3.122 PO; FERR325T72 PO; LIDO700A39 TP; LISI-338 PO; SOTA80TA48 PO; SPIR25TA3 PO; TIZA4TAB PO; TORS20TA2 PO; TRAM50TA PO
[2017-06-03] MEDS ORDERED: IV NORMAL SALINE 500ML BAG 500 ML IV ONE (19:45)
--- NOTE | 2017-06-03 20:27 | RAD ---
CT Head W/O Contrast: History: weakness, unable to swallow, no priors Comparison: none Axial images were obtained without contrast. There is marked diffuse atrophy. There is no mass effect, extraaxial fluid collections or hydrocephalus. There is no gross bleed. Mild, patchy periventricular and subcortical white matter hypoattenuation is seen. There is an old stroke in the right cerebellar lobe. Encephalomalacia in the frontal lobes is consistent with old strokes as well. There is no focal loss of marion-white matter distinction to suggest acute ischemia, i.e. stroke. There is fluid in the sphenoid sinus. Impression: Marked diffuse atrophy and old strokes. No acute intracranial findings. PQRS Compliance Statement: One or more of the following individualized dose reduction techniques were utilized for this examination: 1. Automated exposure control 2. Adjustment of the mA and/or kV according to patient size 3. Use of iterative reconstruction technique Electronically signed by: Lopez Chavez III, MD (06/03/2017 8:24 PM) [id number]
[2017-06-03] MEDS ORDERED: PIP/TAZO PER PHARMACY MC PRN (20:30)
[2017-06-03] MEDS ORDERED: levOFLOXacin PER PHARMACY. MC PRN (20:30)
[2017-06-03 20:35] LABS: BASO # 0.1 x10^3/uL (0.0-0.2); BASO % 1 % (0-3); EOS % 0 % (0-3); HEMATOCRIT 32.3 % (39.0-53.0); LYMPH # 0.8 x10^3/uL (1.0-4.8); LYMPH % 11 % (24-48); MEAN CORPUSCULAR HEMOGLOBIN 29 pg (25-35); MEAN CORPUSCULAR HGB CONC 31 g/dL (31-37); MEAN CORPUSCULAR VOLUME 94 fL (79-100); MONO % 7 % (0-9); NEUT % 80 % (31-73); PLATELET COUNT 232 x10^3/uL (140-400); RED BLOOD COUNT 3.43 x10^6/uL (4.30-5.70); RED CELL DISTRIBUTION WIDTH 21.1 % (11.5-14.5)
[2017-06-03 20:46] LABS: BILIRUBIN,URINE NEGATIVE (NEG); GLUCOSE,URINE NEGATIVE (NEG); NITRITE,URINE NEGATIVE (NEG); PROTEIN,URINE NEGATIVE (NEG-TRACE)
[2017-06-03 20:47] LABS: CREATININE 2.7 mg/dL (0.7-1.3); GFR 28.2; INR 3.8 (0.8-1.1); POTASSIUM 5.4 mmol/L (3.5-5.1); PROTHROMBIN TIME PATIENT 34.8 SEC (11.7-14.0)
[2017-06-03 20:51] LABS: BACTERIA,URINE 0 /HPF (0-FEW); RBC,URINE 0 /HPF (0-2); WBC,URINE 0 /HPF (0-4)
[2017-06-03 20:53] LABS: ALBUMIN 2.9 g/dL (3.4-5.0); ALBUMIN/GLOBULIN RATIO 0.6 (1.0-1.7); MAGNESIUM 2.8 mg/dL (1.8-2.4); TOTAL BILIRUBIN 1.3 mg/dL (0.2-1.0); TOTAL PROTEIN 7.9 g/dL (6.4-8.2)
[2017-06-03 20:58] LABS: HCO3 ABG 16 mmol/L (21-28); PCO2 ABG 24 mmHg (35-46); PO2 ABG 72 mmHg (65-108)
[2017-06-03 20:59] LABS: PH ABG 7.44 (7.35-7.45); SAT O2 ABG 93 % (92-99)
[2017-06-03] MEDS ORDERED: PIPERACILLIN/TAZOBACTAM 3.375 GM in IV NORMAL SALINE 50ML 50 ML IV ONE (21:00)
[2017-06-03] MEDS ORDERED: IV NORMAL SALINE 1000ML BAG 1,000 ML IV ONE ×2 (21:00→21:15)
[2017-06-03] MEDS ORDERED: VANCOMYCIN 1.75 GM in IV NORMAL SALINE 500ML BAG 500 ML IV ONE (21:00)
--- NOTE | 2017-06-03 21:07 | PHYS DOC ---
Past Medical History Past Medical History: A-Fib, Dementia, High Cholesterol, DC, Renal Failure Past Surgical History: Pacemaker Adult General Chief Complaint Chief Complaint: WEAKNESS/GENERALIZED HPI HPI Patient is a 72 year old MALE who presents with generalized weakness, appearance of shortness of breath, difficulty swallowing and weakness. The retirement report is at patient's had increasing weakness over the last several days, unable to swallow today. No reports of any focal deficits, patient was admitted there after he suffered acute renal failure secondary to dehydration. Patient denies that he has pain in his abdomen, denies that he has a headache, he is a difficult historian as he is having trouble talking with a very dry mouth. He does complain of cough and shortness of breath. Review of Systems Review of Systems unAble to obtain due focal condition Current Medications Current Medications Current Medications Medications (Trade) Dose Ordered Sig/Toñito Start Time Stop Time Status Last Admin Dose Admin Levofloxacin/ Dextrose 150 ml @ 100 mls/hr 1X ONCE 06/03/17 21:00 06/03/17 22:29 Levofloxacin/ Dextrose (Levaquin Per Pharmacy) 1 each PRN DAILY PRN 06/03/17 20:30 UNV Piperacillin Sod/ Tazobactam Sod (Zosyn Per Pharmacy) 1 each PRN DAILY PRN 06/03/17 20:30 UNV Piperacillin Sod/ Tazobactam Sod 3.375 gm/Sodium Chloride 50 ml @ 100 mls/hr 1X ONCE 06/03/17 21:00 06/03/17 21:29 Sodium Chloride 500 ml @ 500 mls/hr 1X ONCE 06/03/17 19:45 06/03/17 20:44 DC 06/03/17 20:36 500 MLS/HR Vancomycin HCl (Vanco Per Pharmacy) 1 each PRN DAILY PRN 06/03/17 20:30 UNV Vancomycin HCl 1.75 gm/Sodium Chloride 500 ml @ 250 mls/hr 1X ONCE 06/03/17 21:00 06/03/17 22:59 Allergies Allergies Allergies Coded Allergies Type Severity Reaction Last Updated Verified No Known Drug Allergies 05/01/17 No Physical Exam Physical Exam Constitutional: Well developed, ill appearing, tachypnea, appears dry HENT: Normocephalic, atraumatic, bilateral external ears normal, oropharynx dry Eyes: PERRLA, EOMI, conjunctiva normal, no discharge. [] Neck: Normal range of motion, no tenderness, supple, no stridor. [] Cardiovascular:Heart rate regular with regular rhythm, no murmur [] Lungs & Thorax: Bilateral breath sounds , rhonchi diffusely, no wheeze Abdomen: Bowel sounds normal, soft, no tenderness, no masses, no pulsatile masses. [] Skin: Warm, dry, no erythema, no rash. [] no CVA tenderness. [] Extremities: No tenderness, no cyanosis, no clubbing, ROM intact, no edema. 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 Current Patient Data Vital Signs Vital Signs Date Time Temp Pulse Resp B/P (MAP) Pulse Ox O2 Delivery O2 Flow Rate FiO2 06/03/17 18:26 97.5 72 28 149/77 (101) 95 Nasal Cannula 1.0 97.5 Lab Values Laboratory Tests Test 06/03/17 20:10 06/03/17 20:38 White Blood Count 7.0 x10^3/uL (4.0-11.0) Red Blood Count 3.43 x10^6/uL (4.30-5.70) L Hemoglobin 10.0 g/dL (13.0-17.5) L Hematocrit 32.3 % (39.0-53.0) L Mean Corpuscular Volume 94 fL (79-100) Mean Corpuscular Hemoglobin 29 pg (25-35) Mean Corpuscular Hemoglobin Concent 31 g/dL (31-37) Red Cell Distribution Width 21.1 % (11.5-14.5) H Platelet Count 232 x10^3/uL (140-400) Neutrophils (%) (Auto) 80 % (31-73) H Lymphocytes (%) (Auto) 11 % (24-48) L Monocytes (%) (Auto) 7 % (0-9) Eosinophils (%) (Auto) 0 % (0-3) Basophils (%) (Auto) 1 % (0-3) Neutrophils # (Auto) 5.6 x10^3uL (1.8-7.7) Lymphocytes # (Auto) 0.8 x10^3/uL (1.0-4.8) L Monocytes # (Auto) 0.5 x10^3/uL (0.0-1.1) Eosinophils # (Auto) 0.0 x10^3/uL (0.0-0.7) Basophils # (Auto) 0.1 x10^3/uL (0.0-0.2) Platelet Estimate Pending Prothrombin Time 34.8 SEC (11.7-14.0) H Prothrombin Time INR 3.8 (0.8-1.1) H Sodium Level 146 mmol/L (136-145) H Potassium Level 5.4 mmol/L (3.5-5.1) H Chloride Level 111 mmol/L (98-107) H Carbon Dioxide Level 20 mmol/L (21-32) L Anion Gap 15 (6-14) H Blood Urea Nitrogen 45 mg/dL (8-26) H Creatinine 2.7 mg/dL (0.7-1.3) H Estimated GFR (Cockcroft-Gault) 28.2 BUN/Creatinine Ratio 17 (6-20) Glucose Level 112 mg/dL (70-99) H Lactic Acid Level 2.7 mmol/L (0.4-2.0) H Calcium Level 9.0 mg/dL (8.5-10.1) Magnesium Level 2.8 mg/dL (1.8-2.4) H Total Bilirubin 1.3 mg/dL (0.2-1.0) H Aspartate Amino Transferase (AST) 616 U/L (15-37) H Alanine Aminotransferase (ALT) 661 U/L (16-63) H Alkaline Phosphatase 99 U/L (46-116) Total Protein 7.9 g/dL (6.4-8.2) Albumin 2.9 g/dL (3.4-5.0) L Albumin/Globulin Ratio 0.6 (1.0-1.7) L Urine Collection Type U cath Urine Color Luna Urine Clarity Clear Urine pH 5.0 Urine Specific [place] 1.020 Urine Protein Negative mg/dL (NEG-TRACE) Urine Glucose (UA) Negative mg/dL (NEG) Urine Ketones (Stick) Trace mg/dL (NEG) Urine Blood Negative (NEG) Urine Nitrite Negative (NEG) Urine Bilirubin Negative (NEG) Urine Urobilinogen Dipstick 1.0 mg/dL (0.2 mg/dL) Urine Leukocyte Esterase Small (NEG) Urine RBC 0 /HPF (0-2) Urine WBC 0 /HPF (0-4) Urine Bacteria 0 /HPF (0-FEW) Urine Hyaline Casts Moderate /HPF Urine Mucus Mod /LPF Laboratory Tests 06/03/17 20:10 Laboratory Tests 06/03/17 20:10 EKG EKG 72 bpm, sinus, normal axis, left bundle branch block, QTC of 536, T-wave inversions in V3 through V6, 2, 3, aVF, could not find a comparison [] Radiology/Procedures Radiology/Procedures Chest x-ray one view shows possible right perihilar infiltrates, new since last visit, normal cardiac silhouette, no bony abnormality, interpreted by me [] Course & Med Decision Making Course & Med Decision Making Pertinent Labs and Imaging studies reviewed. (See chart for details) She was given IV fluid bolus, presumed sepsis with tachypnea, altered mental status. There was a delay in labs, started the patient on Levaquin, vancomycin and Zosyn for pneumonia, healthcare acquired. I spoke with , accepted the patient on telemetry. Patient's troponin slightly bumped, likely secondary to acute renal failure. We'll continue to hydrate the monitor and patient. Dragon Disclaimer Dragon Disclaimer This electronic medical record was generated, in whole or in part, using a voice recognition dictation system. Departure Departure Impression: Primary Impression: RINKU (acute kidney injury) Additional Impression: Pneumonia Disposition: 09 ADMITTED INPATIENT Admitting Physician: Other Condition: GUARDED Referrals: JARON ARCEO III, DO (PCP) Problem Qualifiers SHUBHAM HERNANDEZ MD Jun 03, 2017 21:07
[2017-06-03 21:12] LABS: ANISOCYTOSIS MOD; OVALOCYTES FEW; PLT ESTIMATE ADEQUATE (ADEQUATE); POIKILOCYTOSIS SLIGHT; POLYCHROMASIA SLIGHT
[2017-06-03 23:10] VITALS: BP 155/74
[2017-06-03] MEDS ORDERED: [UNRECOGNIZED DRUG - MIXTURE] TP SCH (23:15)
[2017-06-03] MEDS ORDERED: BISACODYL 10 MG SUPP.RECT. RC PRN (23:15)
[2017-06-03] MEDS ORDERED: ALPRAZolam 0.25 MG TABLET PO PRN (23:15)
[2017-06-03] MEDS ORDERED: TEMAZEPAM 7.5 MG CAPSULE PO PRN (23:15)
[2017-06-03] MEDS ORDERED: MAGNESIUM HYDROXIDE 2,400 MG/30 ML ORAL.SUSP. PO SCH (23:15)
[2017-06-03] MEDS ORDERED: ASCO500T3 PO (23:27)
[2017-06-03] MEDS ORDERED: BISA10SU55 RC (23:27)
[2017-06-03] MEDS ORDERED: ALPR0.254 PO (23:27)
[2017-06-03] MEDS ORDERED: POLY17PO29 PO (23:27)
[2017-06-03] MEDS ORDERED: TEMA7.5C PO (23:27)
[2017-06-03] MEDS ORDERED: FAMO20TA5 PO (23:27)
[2017-06-03] MEDS ORDERED: MAGN2400 PO (23:27)
[2017-06-03] MEDS ORDERED: GLYC113C TP (23:27)
[2017-06-03] MEDS ORDERED: VANCOMYCIN PER PHARMACY MC PRN (23:30)
[2017-06-03] MEDS: tiZANidine 4 MG TABLET. PO SCH (23:35)
--- NOTE | 2017-06-04 00:33 | ACF ---
Admission Forms Criteria MENTAL STATUS CHANGE Clinical Indications for Inpatient Care (Place 'X' for any and all applicable criteria): Ongoing inpatient care may be needed for 1 or more of the following(1)(2)(3)(5)( 6): [X]I. 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 Danger to self or others not manageable at lower level of care [ ]III. Grave disability (eg, inability to perform self care necessary at lower level of care) [ ]IV. Agitation or inappropriate behavior interfering with care for primary condition (eg, attempting to discontinue lines or drains prematurely, unable to cooperate with respiratory care) [ ]V. Delirium [A] [D][E] as described by 1 or more of the following(26): [ ]a) Delirium due to alcohol or sedative [F] withdrawal [ ]b) Delirium of uncertain etiology that has not responded to appropriate empiric treatment [ ]c) Delirium that prevents performance of a life-sustaining function (eg, feeding or hydrating oneself) [ ]. General contraindications and/or Inappropriate clinical situations for Observational Care in patients with Mental Status Change, when ANY ONE of the following is required: [ ]a) Prediction of prolongation of LOS based on ANY ONE of the following may be considered as a contraindication for observational care 2, 3, 4, 5, 6, 7, 8, 9, 10, 11 [ ]i) Age > 65 yrs. [ ]ii) Patient arriving by ambulance [ ]iii) Patient with high acuity [ ]iv) Patient requiring vital sign monitoring [ ]v) Patient on IV medication [ ]b) Systolic blood pressures greater than or equal to 180mmHg 3, 12 [ ]c) Patient with altered mental status including delirium and other alteration of consciousness, (3) [ ]d) Patient whose discharge disposition will be to a prison home or rehabilitation home should not be managed in Emergency Department Observation Unit. CMS rule requires 3 days hospital stay before such placement.3,13 [ ]e) Patient with failure to thrive due to broad array of etiologies 3,16,17 [ ]f) Inability to ambulate 3,14 Extended stay beyond goal length of stay for the primary condition may be needed until ALL of the following are present(3)(5): [ ]a) Underlying medical etiology of mental status change is absent, or has been established and adequately treated [ ]b) Danger to self or others is absent or manageable at lower level of care. [ ]c) Behavior crisis management, including physical or chemical restraints, is not required or available at lower level of car [ ]d) Substance or alcohol withdrawal is absent or manageable at lower level of care. [ ]e) Behavioral symptoms (eg, agitation, somnolence, inappropriate behavior) are absent, or are manageable at lower level of care. The original [facility] content created by [facility] has been revised. The portions of the content which have been revised are identified through the use of italic text or in bold, and [facility] has neither reviewed nor approved the modified material. All other unmodified content is copyright [facility]. Please see references footnoted in the original [facility] Admission Criteria Met?: Yes TARIQ LOZANO Jun 04, 2017 00:33
[2017-06-04 03:10] VITALS: BP 158/76
[2017-06-04] MEDS ORDERED: INFLUENZA VAX SCREEN BY RX. MC ONE (05:45)
--- NOTE | 2017-06-04 06:08 | EKG ---
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
[2017-06-04] MEDS: PIPERACILLIN/TAZOBACTAM 2.25 GM in IV NORMAL SALINE 50ML 50 ML IV SCH ×4 (06:20→23:27)
[2017-06-04 07:00] VITALS: BP 149/66
--- NOTE | 2017-06-04 07:41 | RAD ---
Exam performed: One view chest. History: Weakness, history of atrial fibrillation, pacemaker. Date of service: 06/03/17. Comparison: One view chest from 05/02/17. Single AP upright portable view chest findings: Moderate cardiomegaly, somewhat increased since previous study and may be related to poor inspiration. Pulmonary vascularity is unremarkable. There is perhaps a lymph node in the right hilum. Prominent interstitial markings in both lungs are likely chronic. There is a bipolar pacemaker. Right shoulder arthroplasty. Impression: Moderate cardiomegaly with mild central vascular congestion.
[2017-06-04] MEDS: FERROUS SULFATE 325 MG TABLET. PO SCH (08:00)
[2017-06-04] MEDS: CARVEDILOL 3.125 MG TABLET. PO SCH ×2 (08:00→17:00)
[2017-06-04] MEDS ORDERED: ANTI-COAG MONITOR BY PHARMACY. MC PRN (08:30)
[2017-06-04] MEDS: ASCORBIC ACID 500 MG TABLET PO SCH ×3 (09:00→18:00)
[2017-06-04] MEDS ORDERED: SOTALOL 80 MG TABLET. PO SCH (09:00)
[2017-06-04] MEDS ORDERED: APIXABAN 5 MG TABLET. PO SCH (09:00)
[2017-06-04] MEDS: POLYETHYLENE GLYCOL 3350 17 GM PACKET. PO SCH (09:00)
[2017-06-04] MEDS: FAMOTIDINE 20 MG TABLET. PO SCH (09:00)
--- NOTE | 2017-06-04 09:21 | PDOC ---
Infectious Disease Note ROS ROS Vital Sign Vital Signs Vital Signs Date Time Temp Pulse Resp B/P (MAP) Pulse Ox O2 Delivery O2 Flow Rate FiO2 06/04/17 08:18 Nasal Cannula 2.0 06/04/17 07:00 98.3 63 17 149/66 (93) 100 98.3 Labs Lab Laboratory Tests Test 06/03/17 20:10 06/03/17 20:38 06/03/17 20:53 06/03/17 22:47 White Blood Count 7.0 x10^3/uL (4.0-11.0) Red Blood Count 3.43 x10^6/uL (4.30-5.70) Hemoglobin 10.0 g/dL (13.0-17.5) Hematocrit 32.3 % (39.0-53.0) Mean Corpuscular Volume 94 fL (79-100) Mean Corpuscular Hemoglobin 29 pg (25-35) Mean Corpuscular Hemoglobin Concent 31 g/dL (31-37) Red Cell Distribution Width 21.1 % (11.5-14.5) Platelet Count 232 x10^3/uL (140-400) Neutrophils (%) (Auto) 80 % (31-73) Lymphocytes (%) (Auto) 11 % (24-48) Monocytes (%) (Auto) 7 % (0-9) Eosinophils (%) (Auto) 0 % (0-3) Basophils (%) (Auto) 1 % (0-3) Neutrophils # (Auto) 5.6 x10^3uL (1.8-7.7) Lymphocytes # (Auto) 0.8 x10^3/uL (1.0-4.8) Monocytes # (Auto) 0.5 x10^3/uL (0.0-1.1) Eosinophils # (Auto) 0.0 x10^3/uL (0.0-0.7) Basophils # (Auto) 0.1 x10^3/uL (0.0-0.2) Platelet Estimate Adequate (ADEQUATE) Polychromasia Slight Poikilocytosis Slight Anisocytosis Mod Ovalocytes Few Prothrombin Time 34.8 SEC (11.7-14.0) Prothromb Time International Ratio 3.8 (0.8-1.1) Sodium Level 146 mmol/L (136-145) Potassium Level 5.4 mmol/L (3.5-5.1) Chloride Level 111 mmol/L (98-107) Carbon Dioxide Level 20 mmol/L (21-32) Anion Gap 15 (6-14) Blood Urea Nitrogen 45 mg/dL (8-26) Creatinine 2.7 mg/dL (0.7-1.3) Estimated GFR (Cockcroft-Gault) 28.2 BUN/Creatinine Ratio 17 (6-20) Glucose Level 112 mg/dL (70-99) Lactic Acid Level 2.7 mmol/L (0.4-2.0) 2.7 mmol/L (0.4-2.0) Calcium Level 9.0 mg/dL (8.5-10.1) Magnesium Level 2.8 mg/dL (1.8-2.4) Total Bilirubin 1.3 mg/dL (0.2-1.0) Aspartate Amino Transf (AST/SGOT) 616 U/L (15-37) Alanine Aminotransferase (ALT/SGPT) 661 U/L (16-63) Alkaline Phosphatase 99 U/L (46-116) Troponin I Quantitative 0.081 ng/mL (0.000-0.055) Total Protein 7.9 g/dL (6.4-8.2) Albumin 2.9 g/dL (3.4-5.0) Albumin/Globulin Ratio 0.6 (1.0-1.7) Urine Collection Type U cath Urine Color Luna Urine Clarity Clear Urine pH 5.0 Urine Specific [place] 1.020 Urine Protein Negative mg/dL (NEG-TRACE) Urine Glucose (UA) Negative mg/dL (NEG) Urine Ketones (Stick) Trace mg/dL (NEG) Urine Blood Negative (NEG) Urine Nitrite Negative (NEG) Urine Bilirubin Negative (NEG) Urine Urobilinogen Dipstick 1.0 mg/dL (0.2 mg/dL) Urine Leukocyte Esterase Small (NEG) Urine RBC 0 /HPF (0-2) Urine WBC 0 /HPF (0-4) Urine Bacteria 0 /HPF (0-FEW) Urine Hyaline Casts Moderate /HPF Urine Mucus Mod /LPF O2 Saturation 93 % (92-99) Arterial Blood pH 7.44 (7.35-7.45) Arterial Blood pCO2 at Patient Temp 24 mmHg (35-46) Arterial Blood pO2 at Patient Temp 72 mmHg (65-108) Arterial Blood HCO3 16 mmol/L (21-28) Arterial Blood Base Excess -7 mmol/L (-3-3) FiO2 21.0 Test 06/04/17 05:20 Troponin I Quantitative 0.089 ng/mL (0.000-0.055) Objective Assessment Acute Encephalopathy Lactic acidiosis Transaminitis RINKU on CKD fluid in sphenoid sinus - nonspecific Plan Plan of Care Bladder scan was straight cath in ER D/c Vanc given RINKU Hold further Levoflox for now Cont Zosyn F/u labs and cults May need Abd U/S with elevated LFTS Check lipase/procalcitonin Thank you PP records reviewed # [id number] ANIBAL CRAWLEY MD Jun 04, 2017 09:21
[2017-06-04] MEDS ORDERED: hydrALAZINE 20 MG/ML VIAL. IVP PRN (10:15)
[2017-06-04] MEDS: HALOPERIDOL LACTATE 5 MG/ML VIAL. IVP PRN ×2 (10:20→22:06)
[2017-06-04] MEDS: LIDOCAINE (700MG/PATCH) PATCH. TP SCH (10:21)
[2017-06-04 11:00] VITALS: BP 156/72
[2017-06-04] MEDS: tiZANidine 4 MG TABLET. PO SCH ×2 (14:00→21:04)
--- NOTE | 2017-06-04 14:35 | RAD ---
Ultrasound of the right upper quadrant of the abdomen 06/04/2017 Clinical history: Elevated liver function tests. Technique: A real-time ultrasound examination of abdomen was performed. Multiple images were obtained. Findings: The gallbladder is well-distended. A 7 mm polyp is seen adherent to the gallbladder wall. No gallstones are visualized. The gallbladder wall thickness is within normal limits. No significant pericholecystic fluid is seen. The common bile duct measures 2 mm in diameter which is within normal limits. The liver is mildly enlarged measuring 20 cm in length. No focal abnormality of the liver seen. The visualized portions of the pancreas and right kidney are within normal limits. Impression: 1. 7 mm gallbladder polyp. 2. Mild hepatomegaly.
--- NOTE | 2017-06-04 14:38 | HP ---
ADMIT DATE: 06/04/2017 CHIEF COMPLAINT: Generalized weakness, progresses. HISTORY OF PRESENT ILLNESS: The patient is a 72-year-old gentleman who presented to the ER from [facility] with worsening generalized weakness and dysphagia. His history actually dates back 3 weeks earlier when he had presented to [facility] with confusion, was subsequently transferred to [facility] where he was found with acute kidney injury requiring urgent dialysis. His kidney function actually recovered and not requiring dialysis anymore. However, his generalized weakness was thought to be secondary to severe dehydration and UTI. He was therefore transferred for rehabilitation to [facility] on 05/09/2017. There, however, his condition continued to become progressively worse with weakness, occasional confusion, worsening dysphagia and poor p.o. intake, prompting transfer back to the Emergency Room last night. According to personnel at the [facility], no fevers were observed. He was otherwise fairly stable as far as vital signs and other indices were concerned. PAST MEDICAL HISTORY: CAD, AFib, CHF, hypertension, CVA, chronic renal insufficiency and anemia. PAST SURGICAL HISTORY: Status post pacer placement. FAMILY HISTORY: Unknown to patient. SOCIAL HISTORY: No toxic habits, had been living with his previously. ALLERGIES: No known drug allergies. MEDICATIONS: MAR reconciled with [facility] med rec. REVIEW OF SYSTEMS: He feels very thirsty. Denies any headaches or abdominal pain, chest pain, shortness of breath. Admits to generalized weakness on specific questioning. Denies any symptoms in rest of organ system review. PHYSICAL EXAMINATION: VITAL SIGNS: From today show a blood pressure of 158/76, heart rate of 71, respiratory rate at 22. He is afebrile. GENERAL: This is a well-nourished 72-year-old gentleman, awake, in no acute distress. HEENT: Shows no scleral icterus. Oral mucosa is very dry. NECK: Supple. LUNGS: Fairly clear bilaterally. HEART: Has regular rate and rhythm. ABDOMEN: Has positive bowel sounds, soft, nontender. EXTREMITIES: Show no edema. LABORATORY DATA: CBC with a WBC of 7.0, hemoglobin 10.0 and platelets of 232. Chemistries with a BUN and creatinine of 45 and 2.7, which has significantly increased from discharge levels at 24 and 1.5 respectively. Sodium at 146, potassium 5.4, lactic acid 2.7, total bilirubin 1.3 and transaminases at 616 and 661. Previous labs in end of April showed normal transaminases. Iron labs with an iron of 13, TIBC of 135 and ferritin at 631. Troponins stable at 0.09 for essentially 3 readings since admit. Procalcitonin is 0.16, normal up to 0.10. IMAGING STUDIES: Chest x-ray reveals moderate cardiomegaly with mild central vascular congestion. CT of the head showed marked diffuse atrophy and old strokes, no acute intracranial findings. ASSESSMENT AND PLAN: The patient is a 72-year-old gentleman with progressive weakness without true focal symptoms. By labs, he seems to have a mild congestive heart failure, although clinically appears dry. We will give him additional fluid here. We will have him n.p.o. with a reported history of dysphagia and have speech pathology evaluate him with swallow test. His renal failure, I suspect is secondary to dehydration. He will receive IV boluses and continued drip and monitor closely including electrolytes. Concerning, however, is his significant transaminitis, which is new. He does not complain of any right upper quadrant pain. We will hold his statin for the time being. Given his elevated creatinine, a meaningful CT is unfortunately not possible. We will obtain ultrasound of the right upper quadrant. Cardiology and Renal have been consulted. We will continue to monitor. TIAGO HENDERSON MD DR: WILMAN/stephanie JOB#: [id number] / [id number] JEANETTE
[2017-06-04 15:00] VITALS: BP 158/89
[2017-06-04] MEDS: IV 1/2 NORMAL SALINE 1,000 ML IV SCH ×2 (15:00→21:45)
--- NOTE | 2017-06-04 15:52 | PDOC2 ---
JUAN CONTEH SENIOR SITE MANAGER 06/04/17 1552: CARDIAC CONSULT DATE OF CONSULT Date of Consult DATE: 06/04/17 TIME: 15:43 REASON FOR CONSULT Reason for Consult: CHF Elevated troponin REFERRING PHYSICIAN Referring Physician: Dr. Smith SOURCE Source: Chart review HISTORY OF PRESENT ILLNESS HISTORY OF PRESENT ILLNESS This is a 72 yo male who presented from [facility] secondary to increased weakness, shortness of breath, and difficulty swallowing. HPI obtain from chart review as patient is encephalopathic and unable to provide information. Was recently hospitalized for altered mental status and dehydration. Was noted with RINKU, requiring temporary HD. Due to ongoing weakness, was transferred to for rehab. Has apparently had increasing weakness over the last couple of days. Developed intermittent confusion and dysphagia. Was transferred back to [facility] for further evaluation and treatment. PAST MEDICAL HISTORY Cardiovascular: AFIB (Paroxysmal), CAD (Nonobstructive coronary artery disease on cardiac catheterization in May 2013), CHF (Severe nonischemic cardiomyopathy, LVEF 20% s/p biventricular ICD/SAMPLE EXAMINER-D implantation), HTN, Hyperlipidemia, Other (Ascending aortic aneurysm measuring 5.0 centimeter in 2014, deemed poor surgical candidate) Pulmonary: COPD CENTRAL NERVOUS SYSTEM: CVA, Dementia GI: GERD Heme/Onc: Anemia NOS Hepatobiliary: No pertinent hx Psych: No pertinent hx Musculoskeletal: Osteoarthritis Infectious disease: No pertinent hx ENT: No pertinent hx Renal/: Acute renal failure (requiring temporary HD), Benign prostatic enlarg. Dermatology: No pertinent hx PAST SURGICAL HISTORY Past Surgical History: Pacemaker (AICD) FAMILY HISTORY Family History: Family History Unknown SOCIAL HISTORY Smoke: Quit (multiple years ago) ALCOHOL: none Lives: with Family (at home with prior to recent discharge to ) CURRENT MEDICATIONS CURRENT MEDICATIONS Current Medications Medications (Trade) Dose Ordered Sig/Toñito Route PRN Reason Start Time Stop Time Status Last Admin Dose Admin Sodium Chloride 500 ml @ 500 mls/hr 1X ONCE IV 06/03/17 19:45 06/03/17 20:44 DC 06/03/17 20:36 Vancomycin HCl (Vanco Per Pharmacy) 1 each PRN DAILY PRN MC SEE COMMENTS 06/03/17 23:30 06/04/17 09:04 DC 06/03/17 23:18 Vancomycin HCl 1.75 gm/Sodium Chloride 500 ml @ 250 mls/hr 1X ONCE IV 06/03/17 21:00 06/03/17 22:59 DC 06/03/17 23:30 Levofloxacin/ Dextrose 150 ml @ 100 mls/hr 1X ONCE IV 06/03/17 21:00 06/03/17 22:29 DC 06/03/17 21:49 Piperacillin Sod/ Tazobactam Sod 3.375 gm/Sodium Chloride 50 ml @ 100 mls/hr 1X ONCE IV 06/03/17 21:00 06/03/17 21:29 DC 06/03/17 21:16 Sodium Chloride 1,000 ml @ 1,000 mls/hr 1X ONCE IV 06/03/17 21:00 06/03/17 21:59 DC 06/03/17 21:15 Sodium Chloride 1,000 ml @ 125 mls/hr 1X ONCE IV 06/03/17 21:15 06/04/17 05:14 DC 06/03/17 05:20 Piperacillin Sod/ Tazobactam Sod 2.25 gm/Sodium Chloride 50 ml @ 100 mls/hr Q6HRS IV 06/04/17 06:00 06/04/17 12:32 Lidocaine (Lidoderm) 1 patch DAILY TP 06/04/17 09:00 06/04/17 10:21 Info (Anti-Coagulation Monitoring By Pharmacy) 1 each PRN DAILY PRN MC SEE COMMENTS 06/04/17 08:30 06/04/17 08:28 Haloperidol Lactate (Haldol) 2.5 mg PRN Q6HRS PRN IVP AGITATION 06/04/17 10:15 06/04/17 10:20 Sodium Chloride 1,000 ml @ 125 mls/hr Q8H IV 06/04/17 13:45 06/04/17 15:00 ALLERGIES ALLERGIES: Coded Allergies: No Known Drug Allergies (Unverified , 05/01/17) ROS Review of System unobtainable PHYSICAL EXAM General: Alert (to self only), mild distress HEENT: Atraumatic, Mucous membr. moist/pink Lungs: Other (faint bibasial crackles) Heart: Regular rate, Normal S1, Normal S2, Other (2/6 systolic murmur. tele SR with int V-pacing ) Abdomen: Soft, No tenderness Extremities: No cyanosis, No edema Skin: No significant lesion Psych/Mental Status: Other (confused, agitated ) MUSCULOSKELETAL: Osteoarthritic changes both hands VITALS VITALS Vital Signs Date Time Temp Pulse Resp B/P (MAP) Pulse Ox O2 Delivery O2 Flow Rate FiO2 06/04/17 15:00 69 19 158/89 (112) 19 Nasal Cannula 2.0 06/04/17 11:00 97.6 97.6 LABS Lab: Laboratory Tests Test 06/03/17 20:10 06/03/17 20:38 06/03/17 20:53 06/03/17 22:47 White Blood Count 7.0 x10^3/uL (4.0-11.0) Red Blood Count 3.43 x10^6/uL (4.30-5.70) Hemoglobin 10.0 g/dL (13.0-17.5) Hematocrit 32.3 % (39.0-53.0) Mean Corpuscular Volume 94 fL (79-100) Mean Corpuscular Hemoglobin 29 pg (25-35) Mean Corpuscular Hemoglobin Concent 31 g/dL (31-37) Red Cell Distribution Width 21.1 % (11.5-14.5) Platelet Count 232 x10^3/uL (140-400) Neutrophils (%) (Auto) 80 % (31-73) Lymphocytes (%) (Auto) 11 % (24-48) Monocytes (%) (Auto) 7 % (0-9) Eosinophils (%) (Auto) 0 % (0-3) Basophils (%) (Auto) 1 % (0-3) Neutrophils # (Auto) 5.6 x10^3uL (1.8-7.7) Lymphocytes # (Auto) 0.8 x10^3/uL (1.0-4.8) Monocytes # (Auto) 0.5 x10^3/uL (0.0-1.1) Eosinophils # (Auto) 0.0 x10^3/uL (0.0-0.7) Basophils # (Auto) 0.1 x10^3/uL (0.0-0.2) Platelet Estimate Adequate (ADEQUATE) Polychromasia Slight Poikilocytosis Slight Anisocytosis Mod Ovalocytes Few Prothrombin Time 34.8 SEC (11.7-14.0) Prothromb Time International Ratio 3.8 (0.8-1.1) Sodium Level 146 mmol/L (136-145) Potassium Level 5.4 mmol/L (3.5-5.1) Chloride Level 111 mmol/L (98-107) Carbon Dioxide Level 20 mmol/L (21-32) Anion Gap 15 (6-14) Blood Urea Nitrogen 45 mg/dL (8-26) Creatinine 2.7 mg/dL (0.7-1.3) Estimated GFR (Cockcroft-Gault) 28.2 BUN/Creatinine Ratio 17 (6-20) Glucose Level 112 mg/dL (70-99) Lactic Acid Level 2.7 mmol/L (0.4-2.0) 2.7 mmol/L (0.4-2.0) Calcium Level 9.0 mg/dL (8.5-10.1) Magnesium Level 2.8 mg/dL (1.8-2.4) Total Bilirubin 1.3 mg/dL (0.2-1.0) Aspartate Amino Transf (AST/SGOT) 616 U/L (15-37) Alanine Aminotransferase (ALT/SGPT) 661 U/L (16-63) Alkaline Phosphatase 99 U/L (46-116) Troponin I Quantitative 0.081 ng/mL (0.000-0.055) Total Protein 7.9 g/dL (6.4-8.2) Albumin 2.9 g/dL (3.4-5.0) Albumin/Globulin Ratio 0.6 (1.0-1.7) Urine Collection Type U cath Urine Color Luna Urine Clarity Clear Urine pH 5.0 Urine Specific [place] 1.020 Urine Protein Negative mg/dL (NEG-TRACE) Urine Glucose (UA) Negative mg/dL (NEG) Urine Ketones (Stick) Trace mg/dL (NEG) Urine Blood Negative (NEG) Urine Nitrite Negative (NEG) Urine Bilirubin Negative (NEG) Urine Urobilinogen Dipstick 1.0 mg/dL (0.2 mg/dL) Urine Leukocyte Esterase Small (NEG) Urine RBC 0 /HPF (0-2) Urine WBC 0 /HPF (0-4) Urine Bacteria 0 /HPF (0-FEW) Urine Hyaline Casts Moderate /HPF Urine Mucus Mod /LPF O2 Saturation 93 % (92-99) Arterial Blood pH 7.44 (7.35-7.45) Arterial Blood pCO2 at Patient Temp 24 mmHg (35-46) Arterial Blood pO2 at Patient Temp 72 mmHg (65-108) Arterial Blood HCO3 16 mmol/L (21-28) Arterial Blood Base Excess -7 mmol/L (-3-3) FiO2 21.0 Test 06/04/17 05:20 06/04/17 08:45 Troponin I Quantitative 0.089 ng/mL (0.000-0.055) 0.093 ng/mL (0.000-0.055) Lipase 67 U/L (73-393) Lactic Acid Level 2.2 mmol/L (0.4-2.0) Procalcitonin 0.16 ng/mL (0.00-0.10) ECHOCARDIOGRAM ECHOCARDIOGRAM <Conclusion> Left ventricle systolic function is severely impaired. The Ejection Fraction is 15%. There is global hypokinesis of the left ventricle. The basal to mid inferior, the entire lateral wall and proximal to mid anterior wall are severely hypokinetic. Tissue Doppler imaging reveals severe left ventricular diastolic dysfunction. There is a pacemaker lead seen in the RV/RA. Doppler and Color Flow revealed mild to moderate aortic regurgitation. Doppler and Color Flow revealed moderate mitral regurgitation. Doppler and Color Flow revealed mild to moderate tricuspid regurgitation. There is moderate pulmonary hypertension. The PA pressure was estimated at 56 mmHg. The IVC is dilated and collapses <50% with inspiration. DATE: 06/11/16 1333 ASSESSMENT/PLAN ASSESSMENT/PLAN 1. Acute on chronic systolic HF with NICM; s/p AICD, LVEF 15% 2. Elevated troponin; highest 0.093 3. CAD; mild non-obstructive per cath 2012 4. Hypertension 5. Hyperlipidemia 6. PAFIB; maintaining SR 7. Acute Encephalopathy 8. Lactic acidosis 9. Transaminitis 10. RINKU on CKD 11. Hyperkalemia Recommendations Troponin elevation likely type II, demand ischemia in the setting of RINKU and acute infection/sepsis. CrCl 24, QTc 536; hold Sotalol. Hold Eliquis given liver impairment. Interrogate device to note afib burden. Gentle IVF's. Caution aggressive hydration given severe cardiomyopathy. Obtain CXR in am. Agree with holding statins with transaminitis Supportive care Problems: RONNA BACON MD 06/04/17 4386: CARDIAC CONSULT ALLERGIES ALLERGIES: Coded Allergies: No Known Drug Allergies (Unverified , 05/01/17) ASSESSMENT/PLAN ASSESSMENT/PLAN Pt. seen and examined. Agree with above MILLING/POLISHING OPERATOR Note. Critically ill 72 y.o man presenting with multiple issues. Will hold significant agents for now given above issues. Supportive care. Will follow along. Problems: JUAN CONTEH APRN Jun 04, 2017 15:52 RONNA BACON MD Jun 04, 2017 17:46
--- NOTE | 2017-06-04 15:56 | PDOC2 ---
CONSULT Date of Consult Date of Consult DATE: 06/04/17 TIME: 15:52 Reason for Consult Reason for Consult: RINKU and elyte ABN Referring Physician Referring Physician: Dr Smith Identification/Chief Complaint Chief Complaint AMS Problems: Source Source: Chart review, Patient History of Present Illness Reason for Visit: as dictatedd Past Medical History Cardiovascular: AFIB, CAD, CHF, HTN, Hyperlipidemia Pulmonary: COPD CENTRAL NERVOUS SYSTEM: CVA, Dementia GI: GERD Heme/Onc: Anemia NOS Musculoskeletal: Osteoarthritis Renal/: Chronic renal insuff, Benign prostatic enlarg. Past Surgical History Past Surgical History: Pacemaker (AICD) Family History Family History: Family History Unknown Social History ALCOHOL: none Drugs: None Lives: with Family Current Problem List Problem List Problems Medical Problems: (1) Pneumonia Status: Acute Current Medications Current Medications Current Medications Sodium Chloride 500 ml @ 500 mls/hr 1X ONCE IV Last administered on 20:36; Start 06/03/17 at 19:45; Stop 06/03/17 at 20:44; Status DC Piperacillin Sod/ Tazobactam Sod (Zosyn Per Pharmacy) 1 each PRN DAILY PRN MC SEE COMMENTS; Start 06/03/17 at 20:30 Vancomycin HCl (Vanco Per Pharmacy) 1 each PRN DAILY PRN MC SEE COMMENTS Last administered on 06/03/17 23:18; Start 06/03/17 at 23:30; Stop 06/04/17 at 09:04 ; Status DC Levofloxacin/ Dextrose (Levaquin Per Pharmacy) 1 each PRN DAILY PRN MC SEE COMMENTS; Start 06/03/17 at 20:30; Stop 06/04/17 at 09:13; Status DC Vancomycin HCl 1.75 gm/Sodium Chloride 500 ml @ 250 mls/hr 1X ONCE IV Last administered on 06/03/17 23:30; Start 06/03/17 at 21:00; Stop 06/03/17 at 22:59 ; Status DC Levofloxacin/ Dextrose 150 ml @ 100 mls/hr 1X ONCE IV Last administered on 21:49; Start 06/03/17 at 21:00; Stop 06/03/17 at 22:29; Status DC Piperacillin Sod/ Tazobactam Sod 3.375 gm/Sodium Chloride 50 ml @ 100 mls/hr 1X ONCE IV Last administered on 06/03/17 21:16; Start 06/03/17 at 21:00; Stop 06/03/17 at 21:29; Status DC Sodium Chloride 1,000 ml @ 1,000 mls/hr 1X ONCE IV Last administered on 21:15; Start 06/03/17 at 21:00; Stop 06/03/17 at 21:59; Status DC Sodium Chloride 1,000 ml @ 125 mls/hr 1X ONCE IV Last administered on 05:20; Start 06/03/17 at 21:15; Stop 06/04/17 at 05:14; Status DC Piperacillin Sod/ Tazobactam Sod 2.25 gm/Sodium Chloride 50 ml @ 100 mls/hr Q6HRS IV Last administered on 06/04/17 12:32; Start 06/04/17 at 06:00 Levofloxacin/ Dextrose 150 ml @ 100 mls/hr Q48H IV ; Start 06/05/17 at 22:00; Stop 06/05/17 at 22:00; Status DC Vancomycin HCl 1 gm/Sodium Chloride 250 ml @ 250 mls/hr Q24H IV ; Start at 23:30; Stop 06/04/17 at 23:30; Status DC Vancomycin HCl 1 each 1X ONCE MC ; Start 06/05/17 at 23:00; Stop 06/05/17 at 23 :00; Status DC Alprazolam (Xanax) 0.25 mg PRN Q6HRS PRN PO ANXIETY / AGITATION; Start at 23:15 Apixaban (Eliquis) 5 mg BID PO ; Start 06/04/17 at 09:00 Ascorbic Acid (Vitamin C) 500 mg TIDAFTMEAL PO ; Start 06/04/17 at 09:00 Atorvastatin Calcium (Lipitor) 20 mg HS PO ; Start 06/04/17 at 21:00; Stop 06/04 at 21:00; Status DC Bisacodyl (Dulcolax Supp) 10 mg PRN DAILY PRN RC CONSTIPATION; Start 06/03/17 at 23:15 Carvedilol (Coreg) 3.125 mg BIDWMEALS PO ; Start 06/04/17 at 08:00 Famotidine (Pepcid) 20 mg DAILY PO ; Start 06/04/17 at 09:00 Ferrous Sulfate (Feosol) 325 mg DAILYWBKFT PO ; Start 06/04/17 at 08:00 Lidocaine (Lidoderm) 1 patch DAILY TP Last administered on 06/04/17 10:21; Start 06/04/17 at 09:00 Polyethylene Glycol (miraLAX PACKET) 17 gm DAILY PO ; Start 06/04/17 at 09:00 Sotalol HCl (Betapace) 120 mg DAILY PO ; Start 06/04/17 at 09:00 Temazepam (Restoril) 7.5 mg PRN QHS PRN PO INSOMNIA; Start 06/03/17 at 23:15 Tizanidine HCl (Zanaflex) 4 mg Q8HRS PO ; Start 06/04/17 at 06:00 Non-Formulary Medication 113 ml QSHIFT TP ; Start 06/03/17 at 23:15; Status UNV Magnesium Hydroxide (Milk Of Magnesia) 2,400 mg PRN DAILY PO ; Start 06/03/17 at 23:15 Info (Do NOT chart on this placeholder) 0.1 each 1X ONCE MC ; Start 06/04/17 at 05:45; Stop 06/04/17 at 05:46; Status UNV Info (Anti-Coagulation Monitoring By Pharmacy) 1 each PRN DAILY PRN MC SEE COMMENTS Last administered on 06/04/17 08:28; Start 06/04/17 at 08:30 Haloperidol Lactate (Haldol) 2.5 mg PRN Q6HRS PRN IVP AGITATION Last administered on 06/04/17 10:20; Start 06/04/17 at 10:15 Hydralazine HCl (Apresoline) 10 mg PRN Q4HRS PRN IVP ELEVATED BP, SEE COMMENTS ; Start 06/04/17 at 10:15 Sodium Chloride 1,000 ml @ 125 mls/hr Q8H IV Last administered on 06/04/17 15 :00; Start 06/04/17 at 13:45 Active Scripts Active Feosol (Ferrous Sulfate) 325 Mg Tablet 325 Mg PO DAILYWBKFT 30 Days Carvedilol 3.125 Mg Tablet 3.125 Mg PO BIDWMEALS 30 Days Reported Temazepam 7.5 Mg Capsule 7.5 Mg PO HS PRN Miralax (Polyethylene Glycol 3350) 17 Gm Powd.pack 1 Packet PO DAILY Milk Of Magnesia (Magnesium Hydroxide) 2,400 Mg/10 Ml Oral.susp 2,400 Mg PO PRN DAILY Famotidine 20 Mg Tablet 20 Mg PO DAILY Dulcolax (Bisacodyl) 10 Mg Supp.rect 10 Mg RC PRN DAILY PRN Cavilon Emollient Cream (Glycerin/Dimeth/Stearyl Alc) 113 Ml Cream.ml. 113 Ml TP QSHIFT Ascorbic Acid 500 Mg Tablet 500 Mg PO TID Alprazolam 0.25 Mg Tablet 0.25 Mg PO PRN Q6HRS PRN Tizanidine Hcl 4 Mg Tablet 1 Tab PO Q8HRS Atorvastatin Calcium 20 Mg Tablet 1 Tab PO DAILY Sotalol (Sotalol Hcl) 80 Mg Tablet 120 Mg PO DAILY Eliquis (Apixaban) 5 Mg Tablet 5 Mg PO BID Lidocaine 1 Each Adh..patch 1 Each TP DAILY apply to right shoulder for pain Allergies Allergies: Coded Allergies: No Known Drug Allergies (Unverified , 05/01/17) ROS Review of System Unable to obtaine from pt due to AMS Physical Exam Physical Exam General Appearance: Awake not Alert Oriented x 1 In no Distress Eyes: VIsion Unchanged Conjunctiva Normal EN: No EN Drainage Mucous Memb. dry Neck: no JVD min JVP Supple no Thyromegaly CVS: S1 S2 + Murmur No Gallop No Rub no Edema Resp: no Rales no Rhonchi no Acc. Muscle use GI: BAS +ve NO Bruit Non Tender Non Distended : no CVA tenderness; no Suprapubic Tenderness SKIN: no Rashes Breast Exam deferred Mu.Sk: very restricted ROM + Muscle Atrophy Heme: Unable to palpate Obvious LAD ? Splenomegaly NEURO: dec Strength ? Left hemiparesis Psych: ? Depressed no Active hallucination Vital Signs Vital Signs Date Time Temp Pulse Resp B/P (MAP) Pulse Ox O2 Delivery O2 Flow Rate FiO2 06/04/17 15:00 69 19 158/89 (112) 19 Nasal Cannula 2.0 06/04/17 11:00 97.6 97.6 Assessment & Plan Labs NA for today: These are based on Yesterdays labs RINKU - suspect VMN due to Sev Cmyopahty and some intravascular vol dpeltion: Agree with IVF as ordered. Current FLuid and E-lyte status does not necessitate emergent need for Dialysis. Will re-evaluate for Dialysis in am. Poor Candidacy for Correction HD ^Na - Hypotnoic IVF h/o Sev Cmyoaphty (EF reportedly 15% from [facility] last year) - reval ECHO as ordered by Cardiology Vol depletion _Genlte IVF ^ed K - await recheck labs - may need Kayexalate ^Na - gentle hypotonic IVF for now, pending eval of EF WAG MEt Acidosis - ^ed Lacti acid noted- watch trend with IVF and vol expansion Anemia: start Epogen Transfuse as needed. ^ed LFTS - R/o Rhabdo HTN: Current BP meds reviewed. Discussed Plan of Care and prognosis etc. at length with family. Labs Labs Laboratory Tests Test 06/03/17 20:10 06/03/17 20:38 06/03/17 20:53 06/03/17 22:47 White Blood Count 7.0 x10^3/uL (4.0-11.0) Red Blood Count 3.43 x10^6/uL (4.30-5.70) Hemoglobin 10.0 g/dL (13.0-17.5) Hematocrit 32.3 % (39.0-53.0) Mean Corpuscular Volume 94 fL (79-100) Mean Corpuscular Hemoglobin 29 pg (25-35) Mean Corpuscular Hemoglobin Concent 31 g/dL (31-37) Red Cell Distribution Width 21.1 % (11.5-14.5) Platelet Count 232 x10^3/uL (140-400) Neutrophils (%) (Auto) 80 % (31-73) Lymphocytes (%) (Auto) 11 % (24-48) Monocytes (%) (Auto) 7 % (0-9) Eosinophils (%) (Auto) 0 % (0-3) Basophils (%) (Auto) 1 % (0-3) Neutrophils # (Auto) 5.6 x10^3uL (1.8-7.7) Lymphocytes # (Auto) 0.8 x10^3/uL (1.0-4.8) Monocytes # (Auto) 0.5 x10^3/uL (0.0-1.1) Eosinophils # (Auto) 0.0 x10^3/uL (0.0-0.7) Basophils # (Auto) 0.1 x10^3/uL (0.0-0.2) Platelet Estimate Adequate (ADEQUATE) Polychromasia Slight Poikilocytosis Slight Anisocytosis Mod Ovalocytes Few Prothrombin Time 34.8 SEC (11.7-14.0) Prothromb Time International Ratio 3.8 (0.8-1.1) Sodium Level 146 mmol/L (136-145) Potassium Level 5.4 mmol/L (3.5-5.1) Chloride Level 111 mmol/L (98-107) Carbon Dioxide Level 20 mmol/L (21-32) Anion Gap 15 (6-14) Blood Urea Nitrogen 45 mg/dL (8-26) Creatinine 2.7 mg/dL (0.7-1.3) Estimated GFR (Cockcroft-Gault) 28.2 BUN/Creatinine Ratio 17 (6-20) Glucose Level 112 mg/dL (70-99) Lactic Acid Level 2.7 mmol/L (0.4-2.0) 2.7 mmol/L (0.4-2.0) Calcium Level 9.0 mg/dL (8.5-10.1) Magnesium Level 2.8 mg/dL (1.8-2.4) Total Bilirubin 1.3 mg/dL (0.2-1.0) Aspartate Amino Transf (AST/SGOT) 616 U/L (15-37) Alanine Aminotransferase (ALT/SGPT) 661 U/L (16-63) Alkaline Phosphatase 99 U/L (46-116) Troponin I Quantitative 0.081 ng/mL (0.000-0.055) Total Protein 7.9 g/dL (6.4-8.2) Albumin 2.9 g/dL (3.4-5.0) Albumin/Globulin Ratio 0.6 (1.0-1.7) Urine Collection Type U cath Urine Color Luna Urine Clarity Clear Urine pH 5.0 Urine Specific [place] 1.020 Urine Protein Negative mg/dL (NEG-TRACE) Urine Glucose (UA) Negative mg/dL (NEG) Urine Ketones (Stick) Trace mg/dL (NEG) Urine Blood Negative (NEG) Urine Nitrite Negative (NEG) Urine Bilirubin Negative (NEG) Urine Urobilinogen Dipstick 1.0 mg/dL (0.2 mg/dL) Urine Leukocyte Esterase Small (NEG) Urine RBC 0 /HPF (0-2) Urine WBC 0 /HPF (0-4) Urine Bacteria 0 /HPF (0-FEW) Urine Hyaline Casts Moderate /HPF Urine Mucus Mod /LPF O2 Saturation 93 % (92-99) Arterial Blood pH 7.44 (7.35-7.45) Arterial Blood pCO2 at Patient Temp 24 mmHg (35-46) Arterial Blood pO2 at Patient Temp 72 mmHg (65-108) Arterial Blood HCO3 16 mmol/L (21-28) Arterial Blood Base Excess -7 mmol/L (-3-3) FiO2 21.0 Test 06/04/17 05:20 06/04/17 08:45 Troponin I Quantitative 0.089 ng/mL (0.000-0.055) 0.093 ng/mL (0.000-0.055) Lipase 67 U/L (73-393) Lactic Acid Level 2.2 mmol/L (0.4-2.0) Procalcitonin 0.16 ng/mL (0.00-0.10) Laboratory Tests Test 06/03/17 20:10 06/03/17 20:38 06/03/17 20:53 06/03/17 22:47 White Blood Count 7.0 x10^3/uL (4.0-11.0) Red Blood Count 3.43 x10^6/uL (4.30-5.70) Hemoglobin 10.0 g/dL (13.0-17.5) Hematocrit 32.3 % (39.0-53.0) Mean Corpuscular Volume 94 fL (79-100) Mean Corpuscular Hemoglobin 29 pg (25-35) Mean Corpuscular Hemoglobin Concent 31 g/dL (31-37) Red Cell Distribution Width 21.1 % (11.5-14.5) Platelet Count 232 x10^3/uL (140-400) Neutrophils (%) (Auto) 80 % (31-73) Lymphocytes (%) (Auto) 11 % (24-48) Monocytes (%) (Auto) 7 % (0-9) Eosinophils (%) (Auto) 0 % (0-3) Basophils (%) (Auto) 1 % (0-3) Neutrophils # (Auto) 5.6 x10^3uL (1.8-7.7) Lymphocytes # (Auto) 0.8 x10^3/uL (1.0-4.8) Monocytes # (Auto) 0.5 x10^3/uL (0.0-1.1) Eosinophils # (Auto) 0.0 x10^3/uL (0.0-0.7) Basophils # (Auto) 0.1 x10^3/uL (0.0-0.2) Platelet Estimate Adequate (ADEQUATE) Polychromasia Slight Poikilocytosis Slight Anisocytosis Mod Ovalocytes Few Prothrombin Time 34.8 SEC (11.7-14.0) Prothromb Time International Ratio 3.8 (0.8-1.1) Sodium Level 146 mmol/L (136-145) Potassium Level 5.4 mmol/L (3.5-5.1) Chloride Level 111 mmol/L (98-107) Carbon Dioxide Level 20 mmol/L (21-32) Anion Gap 15 (6-14) Blood Urea Nitrogen 45 mg/dL (8-26) Creatinine 2.7 mg/dL (0.7-1.3) Estimated GFR (Cockcroft-Gault) 28.2 BUN/Creatinine Ratio 17 (6-20) Glucose Level 112 mg/dL (70-99) Lactic Acid Level 2.7 mmol/L (0.4-2.0) 2.7 mmol/L (0.4-2.0) Calcium Level 9.0 mg/dL (8.5-10.1) Magnesium Level 2.8 mg/dL (1.8-2.4) Total Bilirubin 1.3 mg/dL (0.2-1.0) Aspartate Amino Transf (AST/SGOT) 616 U/L (15-37) Alanine Aminotransferase (ALT/SGPT) 661 U/L (16-63) Alkaline Phosphatase 99 U/L (46-116) Troponin I Quantitative 0.081 ng/mL (0.000-0.055) Total Protein 7.9 g/dL (6.4-8.2) Albumin 2.9 g/dL (3.4-5.0) Albumin/Globulin Ratio 0.6 (1.0-1.7) Urine Collection Type U cath Urine Color Luna Urine Clarity Clear Urine pH 5.0 Urine Specific [place] 1.020 Urine Protein Negative mg/dL (NEG-TRACE) Urine Glucose (UA) Negative mg/dL (NEG) Urine Ketones (Stick) Trace mg/dL (NEG) Urine Blood Negative (NEG) Urine Nitrite Negative (NEG) Urine Bilirubin Negative (NEG) Urine Urobilinogen Dipstick 1.0 mg/dL (0.2 mg/dL) Urine Leukocyte Esterase Small (NEG) Urine RBC 0 /HPF (0-2) Urine WBC 0 /HPF (0-4) Urine Bacteria 0 /HPF (0-FEW) Urine Hyaline Casts Moderate /HPF Urine Mucus Mod /LPF O2 Saturation 93 % (92-99) Arterial Blood pH 7.44 (7.35-7.45) Arterial Blood pCO2 at Patient Temp 24 mmHg (35-46) Arterial Blood pO2 at Patient Temp 72 mmHg (65-108) Arterial Blood HCO3 16 mmol/L (21-28) Arterial Blood Base Excess -7 mmol/L (-3-3) FiO2 21.0 Test 06/04/17 05:20 06/04/17 08:45 Troponin I Quantitative 0.089 ng/mL (0.000-0.055) 0.093 ng/mL (0.000-0.055) Lipase 67 U/L (73-393) Lactic Acid Level 2.2 mmol/L (0.4-2.0) Procalcitonin 0.16 ng/mL (0.00-0.10) Images Images Renal ultrasound, 05/01/2017: History: Acute renal insufficiency The right kidney measures 9.0 cm in length while the left kidney measures 9.7 cm. There is mild renal cortical scarring. There is no evidence of hydronephrosis or a renal mass. The renal parenchymal echogenicity is within normal limits. A Kay catheter is present within the partially filled urinary bladder. IMPRESSION: 1. Mild renal cortical scarring. 2. No evidence of renal obstruction. LILA SUBRAMANIAN MD Jun 04, 2017 15:56
[2017-06-04] MEDS ORDERED: MAGNESIUM SULFATE 2GM 50 ML IV PRN (16:00)
[2017-06-04 18:03] LABS: BILIRUBIN,URINE NEGATIVE (NEG); GLUCOSE,URINE NEGATIVE (NEG); NITRITE,URINE NEGATIVE (NEG); PROTEIN,URINE NEGATIVE (NEG-TRACE); UROBILINOGEN,URINE 0.2 mg/dL (0.2 mg/dL)
[2017-06-04 18:11] LABS: BACTERIA,URINE 0 /HPF (0-FEW); RBC,URINE OCC /HPF (0-2)
--- NOTE | 2017-06-04 18:24 | CONS ---
DATE OF CONSULTATION: 06/04/2017 INFECTIOUS DISEASE CONSULTATION PATIENT'S ROOM: 202. REQUESTING PHYSICIAN: Dr. Smith. REASON FOR CONSULTATION: Possible sepsis. HISTORY OF PRESENT ILLNESS: The patient is a 72-year-old, gentleman with history of chronic kidney disease, now on dialysis. Also has a history of previous CVA with some hemiplegia and history of a cardiac pacemaker. He was recently admitted to [facility] and was treated for what was thought to be a urinary tract infection after being transferred from [facility], although did not have a positive culture at that time. He was transferred to [facility] after his discharge, but returned on June 03 secondary to generalized weakness, shortness of air, difficulty swallowing and increased weakness. According to ER note, he has had increasing weakness over the past several days. There are no recent antibiotics according to the medication list sent with him from [facility] and no laboratory values either. On arrival, he was afebrile. His blood pressure has been elevated in the 170s/100s, although improved now. He is on 2 liters nasal cannula. Urinalysis by straight catheterization according to ER is clean. White blood cell count was 7 on arrival, but had 80% neutrophils and additionally his creatinine was elevated at 2.7 with his previous creatinine on 08 of May of 1.5. Additionally, he had mild elevation in his troponin of 0.081, this time increased to 0.089. Lactic acid 2.7. He has had increased AST and ALT. He has been given doses of vanc, Zosyn and levofloxacin. Currently, the patient is lying in bed. He appears comfortable. He is slow to respond to questions. States he does have some cough and some nausea and occasional stomach cramps. PAST MEDICAL HISTORY: Positive for chronic kidney disease with history of acute kidney injury on top of it, coronary artery disease, constipation, dementia, hypertension, gastroesophageal reflux disease, hemiplegia and hemiparesis following CVA, hyperlipidemia, muscle weakness, anemia, expressive language disorder, heart failure, hyperkalemia, history of myocardial infarction, atrial fibrillation and history of UTI. SURGICAL HISTORY: Positive for pacemaker placement. REVIEW OF SYSTEMS: Otherwise negative except for mentioned above. ALLERGIES: No known drug allergies. SOCIAL HISTORY: He is a snf resident. No current tobacco. FAMILY HISTORY: Unknown. CURRENT MEDICATIONS: Include levofloxacin, Zosyn, vancomycin, Xanax, Eliquis, Lipitor, Coreg, Pepcid, magnesium, sotalol, Restoril and Zanaflex. Other meds are available and reviewed in the chart. PHYSICAL EXAMINATION: VITAL SIGNS: He is afebrile. Temperature 98.3, pulse 63, respirations 17, blood pressure 149/66 and satting 100% on 2 liters nasal cannula. CONSTITUTIONAL: He is alert, but he is slow to respond. HEENT: His pupils are equal and reactive. He has a normal conjunctivae. Oral cavity, oropharynx was dry. He did open his mouth. NECK: Supple. No JVD. LUNGS: Clear to auscultation bilaterally. HEART: S1 and S2. Pacemaker without signs of any complications. ABDOMEN: Soft. No guarding. No rebound. Decreased bowel sounds. EXTREMITIES: There is no suprapubic fullness. Extremities without clubbing, cyanosis or gross edema. SKIN: Warm to touch without signs of rash. NEUROLOGIC: He is alert and answers questions, but is slow to respond and some questionable confusion. LABORATORY VALUES: White count was 7, hemoglobin 10 and platelets of 232. Segs were 80. Sodium 146. Creatinine of 2.7. Glucose 112. Lactic acid 2.7. Total bili 1.3. AST 616, ALT 661 and alk phos 99. Troponin again elevated at 0.089. Urinalysis was clean. CT scan of the head shows old infarct. No acute process. Chest x-ray: Some cardiomegaly and mild central vascular congestion. Also the CT scan has some fluid in the sphenoid sinus, nonspecific though. IMPRESSION: 1. Acute encephalopathy. 2. Lactic acidosis. 3. Transaminitis. 4. Acute kidney injury on chronic kidney disease. 5. Fluid in the sphenoid sinus, which is nonspecific. Obtain bladder scan, but he does have a history of requiring a Kay given review of previous records and rule out retention, although his urine appears to be clean. We will discontinue his vancomycin given his acute kidney injury ____. Also we will hold further levofloxacin for now given his sotalol and AFib fibrillation history. We will continue Zosyn and follow up on labs and cultures. We will check a lipase. May need abdominal ultrasound with elevated LFTs. He has had previous hepatitis screens that were negative. Thank you for allowing me to participate in the patient's care. If you have any questions, please do not hesitate to contact me. I did review with you the [facility] records and previous records as well. ANIBAL CRAWLEY MD DR: YUSRA/stephanie JOB#: [id number] / [id number]
[2017-06-04 19:05] VITALS: BP 122/59
[2017-06-04] MEDS ORDERED: diphenhydrAMINE 50 MG/ML VIAL IVP PRN (20:15)
[2017-06-04] MEDS ORDERED: ATORVASTATIN CALCIUM 20 MG TABLET PO SCH (21:00)
[2017-06-04 23:05] VITALS: BP 155/83
--- NOTE | 2017-06-04 23:10 | CONS ---
DATE OF CONSULTATION: PRIMARY PHYSICIAN: Dr. Smith. REASON FOR CONSULTATION: Acute on chronic renal insufficiency. HISTORY OF PRESENT ILLNESS: The patient is a 72-year-old -[place] gentleman with known cardiomyopathy, although his echocardiogram report is as reviewed with Cardiology nurse practitioner from [facility] about a year ago. No echocardiograms available in our system. He was admitted here in April and was noted to have acute renal failure and required 2 rounds of dialysis. Creatinine came down to 1.5. He was discharged and it was felt not require further dialysis. He was transferred to [facility] from where he was transferred back to our facility due to generalized weakness and lethargy. He also was noted to have worsening dysphagia. He was found to have a possible UTI, although the UA available to me appears pretty clear with moderate amount of hyaline casts. For rest of the details, please see electronic renal consult note. LILA SUBRAMANIAN MD DR: BELA/stephanie JOB#: [id number] / [id number]
[2017-06-04] MEDS ORDERED: MORPHINE SULFATE 4 MG/ML DISP.SYRIN. IV PRN (23:15)
[2017-06-04] MEDS ORDERED: VANCOMYCIN 1 GM in IV NORMAL SALINE 250ML 250 ML IV SCH (23:30)
[2017-06-05] VITALS (14 sets, daily range): BP systolic 138–183; BP diastolic 64–83
[2017-06-05] MEDS: PIPERACILLIN/TAZOBACTAM 2.25 GM in IV NORMAL SALINE 50ML 50 ML IV SCH ×3 (04:31→17:54)
[2017-06-05 04:35] LABS: BASO # 0.1 x10^3/uL (0.0-0.2); BASO % 1 % (0-3); EOS % 0 % (0-3); HEMOGLOBIN 9.4 g/dL (13.0-17.5); LYMPH # 0.7 x10^3/uL (1.0-4.8); LYMPH % 8 % (24-48); MEAN CORPUSCULAR HEMOGLOBIN 30 pg (25-35); MEAN CORPUSCULAR HGB CONC 32 g/dL (31-37); MEAN CORPUSCULAR VOLUME 93 fL (79-100); MONO % 6 % (0-9); NEUT % 86 % (31-73); PLATELET COUNT 178 x10^3/uL (140-400); RED BLOOD COUNT 3.11 x10^6/uL (4.30-5.70); RED CELL DISTRIBUTION WIDTH 21.1 % (11.5-14.5); WHITE BLOOD COUNT 9.4 x10^3/uL (4.0-11.0)
[2017-06-05] MEDS: IV 1/2 NORMAL SALINE 1,000 ML IV SCH (04:37)
[2017-06-05 04:57] LABS: ALBUMIN 2.5 g/dL (3.4-5.0); ALBUMIN/GLOBULIN RATIO 0.6 (1.0-1.7); CREATININE 3.2 mg/dL (0.7-1.3); GFR 23.2; MAGNESIUM 2.7 mg/dL (1.8-2.4); PHOSPHORUS 5.5 mg/dL (2.6-4.7); POTASSIUM 5.3 mmol/L (3.5-5.1); TOTAL BILIRUBIN 1.3 mg/dL (0.2-1.0); TOTAL PROTEIN 6.7 g/dL (6.4-8.2)
[2017-06-05] MEDS: tiZANidine 4 MG TABLET. PO SCH (05:43)
[2017-06-05 07:28] LABS: NUCLEATED RBC 1
[2017-06-05 07:29] LABS: ANISOCYTOSIS MOD; PLT ESTIMATE ADEQUATE (ADEQUATE); SPHEROCYTES FEW
--- NOTE | 2017-06-05 07:37 | PDOC ---
SUBJECTIVE ROS RINKU/ CKD + CHF/ elyte ABN appears to be more awake but still somewhat encephalopahty unable to get ROS OBJECTIVE Vital Signs Vital Signs Date Time Temp Pulse Resp B/P (MAP) Pulse Ox O2 Delivery O2 Flow Rate FiO2 06/05/17 03:05 98.5 64 20 138/67 (90) 98 Nasal Cannula 2.0 98.5 PHYSICAL EXAM Physical Exam General Appearance: Awake not Alert Oriented x 1? In no Distress Eyes: VIsion Unchanged Conjunctiva Normal EN: No EN Drainage Mucous Memb. dry Neck: no JVD min JVP Supple no Thyromegaly CVS: S1 S2 + Murmur No Gallop No Rub no Edema Resp: no Rales no Rhonchi no Acc. Muscle use GI: BS +ve NO Bruit Non Tender Non Distended : no CVA tenderness; no Suprapubic Tenderness Assessment & Plan RINKU - suspect VMN due to Sev Cmyopahty and some intravascular vol dpeltion: Agree with IVF as ordered. Current FLuid and E-lyte status does not necessitate emergent need for Dialysis. Will re-evaluate for Dialysis in am. Poor Candidacy for Nursing Home HD ? CKD III - underlying cannot be ruled out ^Na - Hypotnoic IVF as ordered h/o Sev Cmyoaphty (EF reportedly 15% from [facility] last year) - reval ECHO as ordered by Cardiology . ? need for Ionotropes vs Palliation hereafter Vol depletion - Genlte IVF as ordered ^ed K - IV with Bicarb WAG MEt Acidosis - ^ed Lactic acid noted- watch trend with IVF and gentle vol expansion; AbN LFTs may delay metabolism of Lactate too Anemia: start Epogen Transfuse as needed. ^ed LFTS - R/o Rhabdo HTN: Current BP meds reviewed. defer to Cardiology to optimize in setting of CHF ? pulm edema - ? Need to eval for AMANDA vs Ionotropes Discussed Plan of Care and prognosis etc. at length with Dr Dasilva and Cardiology MATHEMATICAL PHYSICIST COMMENT/RELEVANT DATA Meds Current Medications Medications (Trade) Dose Ordered Sig/Toñito Start Time Stop Time Status Last Admin Dose Admin Alprazolam (Xanax) 0.25 mg PRN Q6HRS PRN 06/03/17 23:15 Apixaban (Eliquis) 5 mg BID 06/04/17 09:00 06/04/17 16:49 DC Ascorbic Acid (Vitamin C) 500 mg TIDAFTMEAL 06/04/17 09:00 Atorvastatin Calcium (Lipitor) 20 mg HS 06/04/17 21:00 06/04/17 21:00 DC Bisacodyl (Dulcolax Supp) 10 mg PRN DAILY PRN 06/03/17 23:15 Carvedilol (Coreg) 3.125 mg BIDWMEALS 06/04/17 08:00 Diphenhydramine HCl (Benadryl) 25 mg PRN Q6HRS PRN 06/04/17 20:15 06/04/17 21:03 25 MG Famotidine (Pepcid) 20 mg DAILY 06/04/17 09:00 Ferrous Sulfate (Feosol) 325 mg DAILYWBKFT 06/04/17 08:00 Haloperidol Lactate (Haldol) 2.5 mg PRN Q6HRS PRN 06/04/17 10:15 06/04/17 22:06 2.5 MG Hydralazine HCl (Apresoline) 10 mg PRN Q4HRS PRN 06/04/17 10:15 Info (Anti-Coagulation Monitoring By Pharmacy) 1 each PRN DAILY PRN 06/04/17 08:30 06/04/17 08:28 1 EACH Info (Do NOT chart on this placeholder) 0.1 each 1X ONCE 06/04/17 05:45 06/04/17 05:46 UNV Levofloxacin/ Dextrose 150 ml @ 100 mls/hr Q48H 06/05/17 22:00 06/05/17 22:00 DC Levofloxacin/ Dextrose (Levaquin Per Pharmacy) 1 each PRN DAILY PRN 06/03/17 20:30 06/04/17 09:13 DC Lidocaine (Lidoderm) 1 patch DAILY 06/04/17 09:00 06/04/17 10:21 1 PATCH Magnesium Hydroxide (Milk Of Magnesia) 2,400 mg PRN DAILY 06/03/17 23:15 Magnesium Sulfate/ Dextrose 50 ml @ 25 mls/hr PRN DAILY PRN 06/04/17 16:00 Morphine Sulfate 2 mg PRN Q2HR PRN 06/04/17 23:15 06/04/17 23:27 2 MG Non-Formulary Medication 113 ml QSHIFT 8/29/17 23:15 UNV Piperacillin Sod/ Tazobactam Sod (Zosyn Per Pharmacy) 1 each PRN DAILY PRN 06/03/17 20:30 Piperacillin Sod/ Tazobactam Sod 2.25 gm/Sodium Chloride 50 ml @ 100 mls/hr Q6HRS 06/04/17 06:00 06/05/17 04:31 100 MLS/HR Piperacillin Sod/ Tazobactam Sod 3.375 gm/Sodium Chloride 50 ml @ 100 mls/hr 1X ONCE 06/03/17 21:00 06/03/17 21:29 DC 06/03/17 21:16 100 MLS/HR Polyethylene Glycol (miraLAX PACKET) 17 gm DAILY 06/04/17 09:00 Sodium Chloride 1,000 ml @ 125 mls/hr Q8H 06/04/17 13:45 06/05/17 04:37 125 MLS/HR Sotalol HCl (Betapace) 120 mg DAILY 06/04/17 09:00 06/04/17 16:49 DC Temazepam (Restoril) 7.5 mg PRN QHS PRN 06/03/17 23:15 Tizanidine HCl (Zanaflex) 4 mg Q8HRS 06/04/17 06:00 Vancomycin HCl 1 each 1X ONCE 06/05/17 23:00 06/05/17 23:00 DC Vancomycin HCl (Vanco Per Pharmacy) 1 each PRN DAILY PRN 06/03/17 23:30 06/04/17 09:04 DC 06/03/17 23:18 1 EACH Vancomycin HCl 1.75 gm/Sodium Chloride 500 ml @ 250 mls/hr 1X ONCE 06/03/17 21:00 06/03/17 22:59 DC 06/03/17 23:30 250 MLS/HR Vancomycin HCl 1 gm/Sodium Chloride 250 ml @ 250 mls/hr Q24H 06/04/17 23:30 06/04/17 23:30 DC Lab Laboratory Tests Test 06/04/17 08:45 06/04/17 17:30 06/05/17 04:15 Lactic Acid Level 2.2 mmol/L (0.4-2.0) Uric Acid 11.0 mg/dL (3.5-7.2) Creatine Kinase 87 U/L (39-308) Troponin I Quantitative 0.093 ng/mL (0.000-0.055) Procalcitonin 0.16 ng/mL (0.00-0.10) Urine Collection Type Unknown Urine Color Yellow Urine Clarity Clear Urine pH 5.0 Urine Specific [place] 1.025 Urine Protein Negative mg/dL (NEG-TRACE) Urine Glucose (UA) Negative mg/dL (NEG) Urine Ketones (Stick) Trace mg/dL (NEG) Urine Blood Negative (NEG) Urine Nitrite Negative (NEG) Urine Bilirubin Negative (NEG) Urine Urobilinogen Dipstick 0.2 mg/dL (0.2 mg/dL) Urine Leukocyte Esterase Trace (NEG) Urine RBC Occ /HPF (0-2) Urine WBC 1-4 /HPF (0-4) Urine Squamous Epithelial Cells None /LPF Urine Bacteria 0 /HPF (0-FEW) Urine Hyaline Casts Few /HPF Urine Mucus Mod /LPF Urine Random Sodium 36 mmol/L (Not Estab.) White Blood Count 9.4 x10^3/uL (4.0-11.0) Red Blood Count 3.11 x10^6/uL (4.30-5.70) Hemoglobin 9.4 g/dL (13.0-17.5) Hematocrit 29.0 % (39.0-53.0) Mean Corpuscular Volume 93 fL (79-100) Mean Corpuscular Hemoglobin 30 pg (25-35) Mean Corpuscular Hemoglobin Concent 32 g/dL (31-37) Red Cell Distribution Width 21.1 % (11.5-14.5) Platelet Count 178 x10^3/uL (140-400) Neutrophils (%) (Auto) 86 % (31-73) Lymphocytes (%) (Auto) 8 % (24-48) Monocytes (%) (Auto) 6 % (0-9) Eosinophils (%) (Auto) 0 % (0-3) Basophils (%) (Auto) 1 % (0-3) Neutrophils # (Auto) 8.0 x10^3uL (1.8-7.7) Lymphocytes # (Auto) 0.7 x10^3/uL (1.0-4.8) Monocytes # (Auto) 0.5 x10^3/uL (0.0-1.1) Eosinophils # (Auto) 0.0 x10^3/uL (0.0-0.7) Basophils # (Auto) 0.1 x10^3/uL (0.0-0.2) Segmented Neutrophils % 86 % (35-66) Lymphocytes % 9 % (24-48) Monocytes % 5 % (0-10) Nucleated Red Blood Cells 1 Platelet Estimate Adequate (ADEQUATE) Anisocytosis Mod Spherocytes Few Sodium Level 147 mmol/L (136-145) Potassium Level 5.3 mmol/L (3.5-5.1) Chloride Level 114 mmol/L (98-107) Carbon Dioxide Level 18 mmol/L (21-32) Anion Gap 15 (6-14) Blood Urea Nitrogen 49 mg/dL (8-26) Creatinine 3.2 mg/dL (0.7-1.3) Estimated GFR (Cockcroft-Gault) 23.2 BUN/Creatinine Ratio 15 (6-20) Glucose Level 107 mg/dL (70-99) Calcium Level 8.0 mg/dL (8.5-10.1) Phosphorus Level 5.5 mg/dL (2.6-4.7) Magnesium Level 2.7 mg/dL (1.8-2.4) Total Bilirubin 1.3 mg/dL (0.2-1.0) Aspartate Amino Transf (AST/SGOT) 655 U/L (15-37) Alanine Aminotransferase (ALT/SGPT) 1063 U/L (16-63) Alkaline Phosphatase 72 U/L (46-116) Total Protein 6.7 g/dL (6.4-8.2) Albumin 2.5 g/dL (3.4-5.0) Albumin/Globulin Ratio 0.6 (1.0-1.7) Other 1. Somewhat symmetrically small bilateral kidneys probably related to chronic renal disease with mild right renal cortical thinning 2. Simple right renal cyst LILA SUBRAMANIAN MD Jun 05, 2017 07:37
[2017-06-05] MEDS: FERROUS SULFATE 325 MG TABLET. PO SCH (08:00)
[2017-06-05] MEDS: CARVEDILOL 3.125 MG TABLET. PO SCH ×2 (08:00→17:00)
--- NOTE | 2017-06-05 08:12 | RAD ---
Exam performed: One view chest. History: CHF. Date of service: 06/05/17. Comparison: Single view chest from 06/03/17. Single AP upright portable view chest findings: Moderate stable cardiomegaly. Pulmonary vascularity is mildly prominent, however improved. Bipolar pacemaker. No focal infiltrates, effusion or pneumothorax seen. Bones are normal Impression: Moderate cardiomegaly with improving CHF
--- NOTE | 2017-06-05 08:30 | RAD ---
Exam performed: Renal sonogram. Indication: Chronic renal disease with acute renal failure Date of Service: 06/04/17 . Comparison: No priors Technique: Real-time grayscale imaging of the kidneys is performed and images are obtained. Findings: Both kidneys are symmetric, however somewhat smaller in size. Normal Echogenicity. The right kidney measures 9.0 x 4.3 x 4.0 cm. Mild right cortical thinning is seen. There is a 1.1 x 1.2 x 1.0 cm cyst in the right mid kidney. The left kidney measures 9.7 x 4.3 x 4.1 cm. lobulation seen in the left kidney. There is no hydronephrosis or perinephric fluid collection. The urinary bladder is adequately visualized. Impression: 1. Somewhat symmetrically small bilateral kidneys probably related to chronic renal disease with mild right renal cortical thinning 2. Simple right renal cyst
--- NOTE | 2017-06-05 08:44 | PDOC ---
Infectious Disease Note Subjective Subjective Alert but weak ROS ROS Difficult to understand Vital Sign Vital Signs Vital Signs Date Time Temp Pulse Resp B/P (MAP) Pulse Ox O2 Delivery O2 Flow Rate FiO2 06/05/17 07:00 97.2 63 23 183/81 (115) 97 Nasal Cannula 2.0 97.2 Physical Exam PHYSICAL EXAM GENERAL: NAD, Alert but appears weak HEENT: PERRL, OC/OP- dry NECK: Supple, no JVD, no LN LUNGS: Clear HEART: S1S2, no gallop, no murmur ABD: Soft, NT, no organomegaly, no rebound EXT: No edema, no cyanosis [employer]: Alert, oriented SKIN: No rash IV: ok Labs Lab Laboratory Tests Test 06/04/17 08:45 06/04/17 17:30 06/05/17 04:15 Lactic Acid Level 2.2 mmol/L (0.4-2.0) Uric Acid 11.0 mg/dL (3.5-7.2) Creatine Kinase 87 U/L (39-308) Troponin I Quantitative 0.093 ng/mL (0.000-0.055) Procalcitonin 0.16 ng/mL (0.00-0.10) Urine Collection Type Unknown Urine Color Yellow Urine Clarity Clear Urine pH 5.0 Urine Specific [place] 1.025 Urine Protein Negative mg/dL (NEG-TRACE) Urine Glucose (UA) Negative mg/dL (NEG) Urine Ketones (Stick) Trace mg/dL (NEG) Urine Blood Negative (NEG) Urine Nitrite Negative (NEG) Urine Bilirubin Negative (NEG) Urine Urobilinogen Dipstick 0.2 mg/dL (0.2 mg/dL) Urine Leukocyte Esterase Trace (NEG) Urine RBC Occ /HPF (0-2) Urine WBC 1-4 /HPF (0-4) Urine Squamous Epithelial Cells None /LPF Urine Bacteria 0 /HPF (0-FEW) Urine Hyaline Casts Few /HPF Urine Mucus Mod /LPF Urine Random Sodium 36 mmol/L (Not Estab.) White Blood Count 9.4 x10^3/uL (4.0-11.0) Red Blood Count 3.11 x10^6/uL (4.30-5.70) Hemoglobin 9.4 g/dL (13.0-17.5) Hematocrit 29.0 % (39.0-53.0) Mean Corpuscular Volume 93 fL (79-100) Mean Corpuscular Hemoglobin 30 pg (25-35) Mean Corpuscular Hemoglobin Concent 32 g/dL (31-37) Red Cell Distribution Width 21.1 % (11.5-14.5) Platelet Count 178 x10^3/uL (140-400) Neutrophils (%) (Auto) 86 % (31-73) Lymphocytes (%) (Auto) 8 % (24-48) Monocytes (%) (Auto) 6 % (0-9) Eosinophils (%) (Auto) 0 % (0-3) Basophils (%) (Auto) 1 % (0-3) Neutrophils # (Auto) 8.0 x10^3uL (1.8-7.7) Lymphocytes # (Auto) 0.7 x10^3/uL (1.0-4.8) Monocytes # (Auto) 0.5 x10^3/uL (0.0-1.1) Eosinophils # (Auto) 0.0 x10^3/uL (0.0-0.7) Basophils # (Auto) 0.1 x10^3/uL (0.0-0.2) Segmented Neutrophils % 86 % (35-66) Lymphocytes % 9 % (24-48) Monocytes % 5 % (0-10) Nucleated Red Blood Cells 1 Platelet Estimate Adequate (ADEQUATE) Anisocytosis Mod Spherocytes Few Sodium Level 147 mmol/L (136-145) Potassium Level 5.3 mmol/L (3.5-5.1) Chloride Level 114 mmol/L (98-107) Carbon Dioxide Level 18 mmol/L (21-32) Anion Gap 15 (6-14) Blood Urea Nitrogen 49 mg/dL (8-26) Creatinine 3.2 mg/dL (0.7-1.3) Estimated GFR (Cockcroft-Gault) 23.2 BUN/Creatinine Ratio 15 (6-20) Glucose Level 107 mg/dL (70-99) Calcium Level 8.0 mg/dL (8.5-10.1) Phosphorus Level 5.5 mg/dL (2.6-4.7) Magnesium Level 2.7 mg/dL (1.8-2.4) Total Bilirubin 1.3 mg/dL (0.2-1.0) Aspartate Amino Transf (AST/SGOT) 655 U/L (15-37) Alanine Aminotransferase (ALT/SGPT) 1063 U/L (16-63) Alkaline Phosphatase 72 U/L (46-116) Total Protein 6.7 g/dL (6.4-8.2) Albumin 2.5 g/dL (3.4-5.0) Albumin/Globulin Ratio 0.6 (1.0-1.7) Objective Assessment Acute Encephalopathy Lactic acidosis Acute Liver failure ? congestion EF 15 % previously vs meds. GB is distended on U/S but no stones/pericystic fluid or GB wall thickness. Nontender RINKU on CKD fluid in sphenoid sinus - nonspecific Plan Plan of Care Check Ammonia level Cont Zosyn F/u labs and cults ANIBAL CRAWLEY MD Jun 05, 2017 08:44
[2017-06-05] MEDS: FAMOTIDINE 20 MG TABLET. PO SCH (09:00)
[2017-06-05] MEDS: LIDOCAINE (700MG/PATCH) PATCH. TP SCH (09:00)
[2017-06-05] MEDS: ASCORBIC ACID 500 MG TABLET PO SCH ×3 (09:00→17:50)
[2017-06-05] MEDS: POLYETHYLENE GLYCOL 3350 17 GM PACKET. PO SCH (09:00)
[2017-06-05] MEDS ORDERED: SODIUM BICARBONATE VIAL 50 MEQ in IV DEXTROSE 5% 1,000 ML IV SCH (09:00)
[2017-06-05] MEDS ORDERED: tiZANidine 4 MG TABLET. PO PRN (10:15)
--- NOTE | 2017-06-05 10:16 | PDOC ---
PROGRESS NOTES Chief Complaint Chief Complaint Progressive FTT ASSESSMENT AND PLAN: 1. Fatigue: avoid sedative meds as possible. consider CT/RENÉE brain, but only meaningful with contrast, which is contraindicated with current renal fxn 2. Dysphagia: awaiting swallow study; pt too lethargic at previous trials x3 3. Transaminitis: worsening. statin on hold. NH3 WNL 4. Dehydration: gentle fluid resuscitation 5. RINKU vs CKD: VMN due to CHF. appreciate Nephro help with management. pt had HD briefly at previous admit 6. Anemia: multifactorial, incl chronic inflammation and CKD. started on EPO as per nephrology 7. HTN: poor control on mini-dose coreg. add Norvasc 8. CHF: known severe nonischemic cardiomyopathy with EF 20%; s/p pacer placement 9. PAfib: currently NSR 10. CAD: nonobstructive coronary artery disease on cardiac catheterization in May 2013, 11. Ascending aortic aneurysm measuring 5.0 centimeter in 2014, deemed poor surgical candidate 12. Lactic acidosis, sl elevated procalcitonin: blood cult NGTD 13. Prophylaxis: heparin SQ (previously on eliquis) d/w Fide Shaffer, Hannah Condition: guarded Prognosis: poor. Consult palliative care for end-of-life care; awaiting family for discussion History of Present Illness History of Present Illness mumbling unintelligibly. appears comfortable Vitals Vitals Vital Signs Date Time Temp Pulse Resp B/P (MAP) Pulse Ox O2 Delivery O2 Flow Rate FiO2 06/05/17 07:00 97.2 63 23 183/81 (115) 97 Nasal Cannula 2.0 97.2 Physical Exam General: Alert (to self only), No acute distress Heart: Regular rate, Other (2/6 systolic murmur. tele SR with int V-pacing ) Lungs: Clear Abdomen: Normal bowel sounds, Soft, No tenderness Extremities: No cyanosis, No edema Skin: No significant lesion Labs LABS Laboratory Tests Test 06/04/17 17:30 06/05/17 04:15 06/05/17 09:00 Urine Collection Type Unknown Urine Color Yellow Urine Clarity Clear Urine pH 5.0 Urine Specific [place] 1.025 Urine Protein Negative mg/dL (NEG-TRACE) Urine Glucose (UA) Negative mg/dL (NEG) Urine Ketones (Stick) Trace mg/dL (NEG) Urine Blood Negative (NEG) Urine Nitrite Negative (NEG) Urine Bilirubin Negative (NEG) Urine Urobilinogen Dipstick 0.2 mg/dL (0.2 mg/dL) Urine Leukocyte Esterase Trace (NEG) Urine RBC Occ /HPF (0-2) Urine WBC 1-4 /HPF (0-4) Urine Squamous Epithelial Cells None /LPF Urine Bacteria 0 /HPF (0-FEW) Urine Hyaline Casts Few /HPF Urine Mucus Mod /LPF Urine Random Sodium 36 mmol/L (Not Estab.) White Blood Count 9.4 x10^3/uL (4.0-11.0) Red Blood Count 3.11 x10^6/uL (4.30-5.70) Hemoglobin 9.4 g/dL (13.0-17.5) Hematocrit 29.0 % (39.0-53.0) Mean Corpuscular Volume 93 fL (79-100) Mean Corpuscular Hemoglobin 30 pg (25-35) Mean Corpuscular Hemoglobin Concent 32 g/dL (31-37) Red Cell Distribution Width 21.1 % (11.5-14.5) Platelet Count 178 x10^3/uL (140-400) Neutrophils (%) (Auto) 86 % (31-73) Lymphocytes (%) (Auto) 8 % (24-48) Monocytes (%) (Auto) 6 % (0-9) Eosinophils (%) (Auto) 0 % (0-3) Basophils (%) (Auto) 1 % (0-3) Neutrophils # (Auto) 8.0 x10^3uL (1.8-7.7) Lymphocytes # (Auto) 0.7 x10^3/uL (1.0-4.8) Monocytes # (Auto) 0.5 x10^3/uL (0.0-1.1) Eosinophils # (Auto) 0.0 x10^3/uL (0.0-0.7) Basophils # (Auto) 0.1 x10^3/uL (0.0-0.2) Segmented Neutrophils % 86 % (35-66) Lymphocytes % 9 % (24-48) Monocytes % 5 % (0-10) Nucleated Red Blood Cells 1 Platelet Estimate Adequate (ADEQUATE) Anisocytosis Mod Spherocytes Few Sodium Level 147 mmol/L (136-145) Potassium Level 5.3 mmol/L (3.5-5.1) Chloride Level 114 mmol/L (98-107) Carbon Dioxide Level 18 mmol/L (21-32) Anion Gap 15 (6-14) Blood Urea Nitrogen 49 mg/dL (8-26) Creatinine 3.2 mg/dL (0.7-1.3) Estimated GFR (Cockcroft-Gault) 23.2 BUN/Creatinine Ratio 15 (6-20) Glucose Level 107 mg/dL (70-99) Calcium Level 8.0 mg/dL (8.5-10.1) Phosphorus Level 5.5 mg/dL (2.6-4.7) Magnesium Level 2.7 mg/dL (1.8-2.4) Total Bilirubin 1.3 mg/dL (0.2-1.0) Aspartate Amino Transf (AST/SGOT) 655 U/L (15-37) Alanine Aminotransferase (ALT/SGPT) 1063 U/L (16-63) Alkaline Phosphatase 72 U/L (46-116) Total Protein 6.7 g/dL (6.4-8.2) Albumin 2.5 g/dL (3.4-5.0) Albumin/Globulin Ratio 0.6 (1.0-1.7) Ammonia 32 mcmol/L (11-34) TIAGO HENDERSON MD Jun 05, 2017 10:16
--- NOTE | 2017-06-05 12:39 | PDOC ---
JUAN CONTEH MAIL HANDLER 06/05/17 1239: CARDIO Progress Notes Date and Time Date of Service 06/05/17 Time of Evaluation 1215 Subjective Subjective: No Chest Pain, No shortness of breath, Other (hungry) Vitals Vitals Vital Signs Date Time Temp Pulse Resp B/P (MAP) Pulse Ox O2 Delivery O2 Flow Rate FiO2 06/05/17 11:07 98.0 60 21 143/74 (97) 97 Nasal Cannula 2.0 98.0 Weight Weight [ ] Laboratory Labs Laboratory Tests Test 06/04/17 17:30 06/05/17 04:15 06/05/17 09:00 Urine Collection Type Unknown Urine Color Yellow Urine Clarity Clear Urine pH 5.0 Urine Specific [place]sey 1.025 Urine Protein Negative mg/dL (NEG-TRACE) Urine Glucose (UA) Negative mg/dL (NEG) Urine Ketones (Stick) Trace mg/dL (NEG) Urine Blood Negative (NEG) Urine Nitrite Negative (NEG) Urine Bilirubin Negative (NEG) Urine Urobilinogen Dipstick 0.2 mg/dL (0.2 mg/dL) Urine Leukocyte Esterase Trace (NEG) Urine RBC Occ /HPF (0-2) Urine WBC 1-4 /HPF (0-4) Urine Squamous Epithelial Cells None /LPF Urine Bacteria 0 /HPF (0-FEW) Urine Hyaline Casts Few /HPF Urine Mucus Mod /LPF Urine Random Sodium 36 mmol/L (Not Estab.) White Blood Count 9.4 x10^3/uL (4.0-11.0) Red Blood Count 3.11 x10^6/uL (4.30-5.70) Hemoglobin 9.4 g/dL (13.0-17.5) Hematocrit 29.0 % (39.0-53.0) Mean Corpuscular Volume 93 fL (79-100) Mean Corpuscular Hemoglobin 30 pg (25-35) Mean Corpuscular Hemoglobin Concent 32 g/dL (31-37) Red Cell Distribution Width 21.1 % (11.5-14.5) Platelet Count 178 x10^3/uL (140-400) Neutrophils (%) (Auto) 86 % (31-73) Lymphocytes (%) (Auto) 8 % (24-48) Monocytes (%) (Auto) 6 % (0-9) Eosinophils (%) (Auto) 0 % (0-3) Basophils (%) (Auto) 1 % (0-3) Neutrophils # (Auto) 8.0 x10^3uL (1.8-7.7) Lymphocytes # (Auto) 0.7 x10^3/uL (1.0-4.8) Monocytes # (Auto) 0.5 x10^3/uL (0.0-1.1) Eosinophils # (Auto) 0.0 x10^3/uL (0.0-0.7) Basophils # (Auto) 0.1 x10^3/uL (0.0-0.2) Segmented Neutrophils % 86 % (35-66) Lymphocytes % 9 % (24-48) Monocytes % 5 % (0-10) Nucleated Red Blood Cells 1 Platelet Estimate Adequate (ADEQUATE) Anisocytosis Mod Spherocytes Few Sodium Level 147 mmol/L (136-145) Potassium Level 5.3 mmol/L (3.5-5.1) Chloride Level 114 mmol/L (98-107) Carbon Dioxide Level 18 mmol/L (21-32) Anion Gap 15 (6-14) Blood Urea Nitrogen 49 mg/dL (8-26) Creatinine 3.2 mg/dL (0.7-1.3) Estimated GFR (Cockcroft-Gault) 23.2 BUN/Creatinine Ratio 15 (6-20) Glucose Level 107 mg/dL (70-99) Calcium Level 8.0 mg/dL (8.5-10.1) Phosphorus Level 5.5 mg/dL (2.6-4.7) Magnesium Level 2.7 mg/dL (1.8-2.4) Total Bilirubin 1.3 mg/dL (0.2-1.0) Aspartate Amino Transf (AST/SGOT) 655 U/L (15-37) Alanine Aminotransferase (ALT/SGPT) 1063 U/L (16-63) Alkaline Phosphatase 72 U/L (46-116) Total Protein 6.7 g/dL (6.4-8.2) Albumin 2.5 g/dL (3.4-5.0) Albumin/Globulin Ratio 0.6 (1.0-1.7) Ammonia 32 mcmol/L (11-34) Microbiology Micro Microbiology 06/03/17 Blood Culture - Preliminary, Resulted NO GROWTH AFTER 1 DAY Physical Exam HEENT: Neck Supple W Full Motion Chest: Symmetric LUNGS: Clear to Auscultation (uppers ), Other (bibasilar rhonchi) Heart: S1S2, RRR, murmurs (2/6 systolic murmur), other (SR with int V pacing) Abdomen: Soft N/T Extremities: Other (trace bilateral pedal edema ) Neurology: alert (to self only ) Assessment Assessment 1. Acute on chronic systolic HF with severe NICM; s/p AICD, LVEF 15% 2. CAD; mild non-obstructive per cath 2012 3. Hypertension 4. PAFIB; maintaining SR 5. Acute Encephalopathy 6. Worsening renal and liver failure Recommendations Start inotrope to ^ cardiac output NPO; hydralazine IV PRN No benefit to repeating echo as severe cardiomyopathy is known. Critically ill with multisystem failure. Prognosis guarded. Recommend palliative care. Supportive care RONNA BACON MD 06/05/17 2335: CARDIO Progress Notes Plan Plan Pt. seen and examined. Agree with above PAYMENT REP note. Mr. Duenas was previously more alert in the office during his visits, now he is more somnolent likely secondary to his acute illness. ? Microaspiration. ? He has acute on chronic systolic HF. He has congestive hepatopathy, acute cardio renal syndrome Will start low dose dobutamine. Supportive care. Again, he is a poor candidate for [facility]. Recommend palliative care but family wishes are to continue aggressive measures. Will evaluate for transfer to [facility] per families request. JUAN CONTEH APRN Jun 05, 2017 12:39 RONNA BACON MD Jun 05, 2017 23:35
--- NOTE | 2017-06-05 14:45 | RAD ---
Exam performed: Renal sonogram. Indication: Hypertension Date of Service: 06/05/17 . Comparison: None available Technique: Real-time grayscale imaging of the kidneys is performed and images are obtained. Findings: Both kidneys are somewhat smaller in size, however normal in echogenicity. The right kidney measures 8.5 x 3.8 x 4.1 cm. There is a 1.2 x 1.2 cm cyst in the inferior right kidney. The left kidney measures 9.0 x 5.7 x 4.1 cm. There is no hydronephrosis or perinephric fluid collection. The urinary bladder is well the compressed and not seen. Impression: 1. Somewhat atrophic bilateral kidneys probably representing chronic medical renal disease. Correlate with renal functions.
--- NOTE | 2017-06-05 17:52 | PDOC2 ---
PALLIATIVE CARE Palliative Care Note Palliative Care Consult requested by Dr. Smith to address goals of care Patient admitted with increased weakness; dysphagia. Diagnosis: HF EF 15%, Pacemaker/AICD; Renal Insufficiency Creat 3.2 ; elevated LFT's, dysphagia, PMH: CAD; At fib; CHF, HTN, CVA; chronic renal insufficiency, anemia; AAA 2015 poor surgical candidate; Swallow evaluation pending; Renal Ultrasound : Impression:somewhat atrophic bilateral kidney probably representing chronic medical renal disease. Met with Dr. Smith, Trina, daughter and her friend. Dr. Smith reviewed current medical condition. Dr. Smith shared results of CT head of 06/03/2017 with . 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 He was always independent and active. concerned about amount of care he may require if he is not able to "get better" Daughter concerned that renal insufficiency is secondary to medication he had received in the past. Discussed options for care; Continue current aggressive care including medication to hopefully strengthen heart (Dobutamine gtt) Hold medications that are sedating. monitor kidney function; complete swallow evaluation tomorrow. vs care focusing on his comfort. Daughter and request patient be transferred to [facility]. Family informed that lateral transfer may not be possible. Family will provide the name of the [facility] Canteen Operator that he has seen. Family wishes to continue current aggressive care. Code Status: Full Code. Plan: Continue Current Aggressive Care Address transfer to [facility] tomorrow after family provides name of [facility]ante[facility] Operator. JULIANE MACIAS Jun 05, 2017 17:52
[2017-06-05] MEDS ORDERED: DARBEPOETIN ALFA 60 MCG/0.3 ML DISP.SYRIN. SQ SCH (21:00)
[2017-06-06] VITALS (11 sets, daily range): BP systolic 130–184; BP diastolic 63–97
[2017-06-06] MEDS: PIPERACILLIN/TAZOBACTAM 2.25 GM in IV NORMAL SALINE 50ML 50 ML IV SCH ×3 (00:37→12:19)
[2017-06-06] MEDS: CARVEDILOL 3.125 MG TABLET. PO SCH (07:49)
[2017-06-06] MEDS: POLYETHYLENE GLYCOL 3350 17 GM PACKET. PO SCH (07:50)
[2017-06-06] MEDS: FAMOTIDINE 20 MG TABLET. PO SCH (07:50)
[2017-06-06] MEDS: ASCORBIC ACID 500 MG TABLET PO SCH ×2 (07:50→12:04)
[2017-06-06] MEDS: FERROUS SULFATE 325 MG TABLET. PO SCH (07:50)
[2017-06-06] MEDS: LIDOCAINE (700MG/PATCH) PATCH. TP SCH (08:03)
[2017-06-06 08:35] LABS: ALBUMIN 2.7 g/dL (3.4-5.0); CALCIUM 8.3 mg/dL (8.5-10.1); CREATININE 3.1 mg/dL (0.7-1.3); PHOSPHORUS 4.4 mg/dL (2.6-4.7); POTASSIUM 4.5 mmol/L (3.5-5.1)
--- NOTE | 2017-06-06 10:20 | PDOC ---
Infectious Disease Note Subjective Subjective Denies pain No fever ROS ROS Limited Vital Sign Vital Signs Vital Signs Date Time Temp Pulse Resp B/P (MAP) Pulse Ox O2 Delivery O2 Flow Rate FiO2 06/06/17 08:00 Nasal Cannula 2.0 06/06/17 07:49 72 130/63 06/06/17 03:55 98.2 22 98 98.2 Physical Exam PHYSICAL EXAM GENERAL: Propped up in bed, NAD. Mitten on LUNGS: Clear HEART: S1S2, no gallop, no murmur, pacemaker ABD: Soft, NT Gu: Kay EXT: No edema, no cyanosis CARDIOVASCULAR INVASIVE SPECIALIST: Alert, not conversant, nods to few questions, speech muffled SKIN: No rash. long toenails IV: ok Labs Lab Laboratory Tests Test 06/06/17 07:50 Sodium Level 150 mmol/L (136-145) Potassium Level 4.5 mmol/L (3.5-5.1) Chloride Level 116 mmol/L (98-107) Carbon Dioxide Level 19 mmol/L (21-32) Anion Gap 15 (6-14) Blood Urea Nitrogen 49 mg/dL (8-26) Creatinine 3.1 mg/dL (0.7-1.3) Estimated GFR (Cockcroft-Gault) 24.0 Glucose Level 108 mg/dL (70-99) Calcium Level 8.3 mg/dL (8.5-10.1) Phosphorus Level 4.4 mg/dL (2.6-4.7) Magnesium Level 2.9 mg/dL (1.8-2.4) Albumin 2.7 g/dL (3.4-5.0) Micro URINE CULTURE RES 1 Preliminary No growth after 18-24 hours. BLOOD CULTURE Preliminary NO GROWTH AFTER 2 DAYS Objective Assessment Acute Encephalopathy Lactic acidosis Acute Liver failure ? congestion EF 15 % previously vs meds. GB is distended on U/S but no stones/pericystic fluid or GB wall thickness. Nontender RINKU on CKD Fluid in sphenoid sinus - nonspecific Plan Plan of Care Cont Zosyn for now Ammonia level 32 Procalcitonin 0.16 Cultures NGTD Supportive care D/w RN Attending Co-Sign The patient was seen and interviewed as well as examined at the bedside. The chart was reviewed. The case was discussed. Agree with the plan of care. FERNANDA SARKAR APRN Jun 06, 2017 10:20 RYLAN SUBRAMANIAN MD Jun 06, 2017 14:34
--- NOTE | 2017-06-06 10:36 | PDOC2 ---
PALLIATIVE CARE Palliative Care Note Palliative Care Patient alert. Anxious. Calms with verbal support. Difficult to understand. RR 30 Family has provided name of [facility] at [facility]; Dunia Zhao MD. No family at bedside. Swallow Evaluation Pending. JULIANE MACIAS Jun 06, 2017 10:36
--- NOTE | 2017-06-06 11:50 | PDOC ---
JUAN CONTEH ESCROW OFFICER 06/06/17 1150: CARDIO Progress Notes Date and Time Date of Service 06/06/17 Time of Evaluation 1100 Subjective Subjective: No Chest Pain, No shortness of breath, Other (ST evaluating swallow ) Vitals Vitals Vital Signs Date Time Temp Pulse Resp B/P (MAP) Pulse Ox O2 Delivery O2 Flow Rate FiO2 06/06/17 10:48 98.2 71 22 164/82 (109) 97 Nasal Cannula 2.0 98.2 Weight Weight [ ] Laboratory Labs Laboratory Tests Test 06/06/17 07:50 Sodium Level 150 mmol/L (136-145) Potassium Level 4.5 mmol/L (3.5-5.1) Chloride Level 116 mmol/L (98-107) Carbon Dioxide Level 19 mmol/L (21-32) Anion Gap 15 (6-14) Blood Urea Nitrogen 49 mg/dL (8-26) Creatinine 3.1 mg/dL (0.7-1.3) Estimated GFR (Cockcroft-Gault) 24.0 Glucose Level 108 mg/dL (70-99) Calcium Level 8.3 mg/dL (8.5-10.1) Phosphorus Level 4.4 mg/dL (2.6-4.7) Magnesium Level 2.9 mg/dL (1.8-2.4) Albumin 2.7 g/dL (3.4-5.0) Microbiology Micro Microbiology 06/03/17 Blood Culture - Preliminary, Resulted NO GROWTH AFTER 2 DAYS 06/04/17 Urine Culture - Preliminary, Resulted 06/04/17 Urine Culture Result 1 (HECTOR) - Preliminary, Resulted Physical Exam HEENT: Neck Supple W Full Motion Chest: Symmetric LUNGS: Other (intermittent fine expiratory wheezes) Heart: S1S2, RRR, murmurs (2/6 systolic murmur), other (SR with int V pacing) Abdomen: Soft N/T Extremities: Other (trace bilateral pedal edema ) Neurology: alert (to self only ), confused Assessment Assessment 1. Possible acute on chronic systolic HF with severe NICM; s/p AICD, LVEF 15% 2. Ventricular arrhythmia; having frequent PVC's and one episode of NSVT this morning. 3. Hypertension Recommendations Consider discontinuing dobutamine given arrhythmias; will monitor rhythm closely Previously seen by [facility] marine scientist, Dr. Dunia Zhao, at [facility] in [place]. Family requesting transfer. Will arrange if accepting of patent. Continue supportive care RONNA BACON MD 06/06/17 1701: CARDIO Progress Notes Plan Plan Pt. seen and examined. Agree with above RATOPRINTER note. 72 y.o man with non-ischemic CMP, s/p ICD presenting with multiorgan failure. Continues to do poorly. No significant improvement. Failed swallow eval From a cardiac perspective, he is tachypneic. Has severe LV dysfunction and poor perfusion Failed dobutamine trail due to PVC's. Denies any chest pain. LFT's improving but still quite elevated Discussed with Dr. Zhao and [facility] and he also feels that there is limited utility in transfer to [facility] for cardiac issues. Supportive care for now but given family wishes for a second opinion and their request for Dr. Zhao, transferring currently. JUAN CONTEH APRN Jun 06, 2017 11:50 RONNA BACON MD Jun 06, 2017 17:01
--- NOTE | 2017-06-06 12:18 | PDOC ---
PROGRESS NOTES Chief Complaint Chief Complaint Progressive FTT ASSESSMENT AND PLAN: 1. Fatigue: avoid sedative meds as possible. CT non-con brain with 3 old areas of stroke/encephalomalacia. suspect recent worsening due to stroke as well, prob too small to show up in non-con films, but renal fxn prohibitive 2. Dysphagia: severe pooling in pharynx, due to periodic stridor of unclear etiology. ENT eval may be helpful 3. Transaminitis: stable to sl improved. statin on hold. NH3 WNL. suspect 2 /2 CHF congestion 4. RINKU vs CKD: VMN due to CHF. appreciate Nephro help with management. pt had HD briefly at previous admit, but poor candidate for long-term HD 5. Dehydration: worsening. give IVF (1/2 NS) cautiously 6. Hypernatremia: worsening. difficult to manage with CHF and NPO. 1/2 NS PRN 7. Anemia: multifactorial, incl chronic inflammation and CKD. started on EPO as per nephrology 8. HTN: switch to IV meds due to NPO 9. CHF: known severe nonischemic cardiomyopathy with EF 20%; hx pacer placement 10. PAfib: currently NSR 11. CAD: nonobstructive coronary artery disease on cardiac catheterization in May 2013, 12. Ascending aortic aneurysm measuring 5.0 centimeter in 2014, deemed poor surgical candidate 13. Lactic acidosis, sl elevated procalcitonin: blood cult NGTD, urine cult NGTD. ID following. on empiric Zosyn 14. Nutriton: will need PPN/TPN short-term, with PEG in near future if family stays on current course. 15. Prophylaxis: heparin SQ (previously on eliquis) Condition: guarded Prognosis: poor. Family meeting with palliative care team yesterday evening, and daughter with boyfriend present. Daughter is adamant that her father was healthy before his admission for RINKU in April, conceding that his hernandez had been "bad" for the past 2 yrs. She is not willing to discuss 'life expectancy" and is not willing to accept that he may have had strokes in the recent past or that his kidneys were insufficient even prior to April. She is not accepting anything but full court press, and requests 2nd opinion from his dip painter at [facility]. seems to be more realistic and listening, but suspect will not be able to stand up to her daughter in decision making. continuing aggressive rx at this time. History of Present Illness History of Present Illness alert today, following commands. verbalizations short, but understandable Vitals Vitals Vital Signs Date Time Temp Pulse Resp B/P (MAP) Pulse Ox O2 Delivery O2 Flow Rate FiO2 06/06/17 10:48 98.2 71 22 164/82 (109) 97 Nasal Cannula 2.0 98.2 Physical Exam General: Alert (to self only), Cooperative, No acute distress Heart: Regular rate, Other (2/6 systolic murmur. tele SR with int V-pacing ) Lungs: Other (UA rhonchi) Abdomen: Normal bowel sounds, Soft, No tenderness Extremities: No cyanosis, No edema Skin: No significant lesion Labs LABS Laboratory Tests Test 06/06/17 07:50 Sodium Level 150 mmol/L (136-145) Potassium Level 4.5 mmol/L (3.5-5.1) Chloride Level 116 mmol/L (98-107) Carbon Dioxide Level 19 mmol/L (21-32) Anion Gap 15 (6-14) Blood Urea Nitrogen 49 mg/dL (8-26) Creatinine 3.1 mg/dL (0.7-1.3) Estimated GFR (Cockcroft-Gault) 24.0 Glucose Level 108 mg/dL (70-99) Calcium Level 8.3 mg/dL (8.5-10.1) Phosphorus Level 4.4 mg/dL (2.6-4.7) Magnesium Level 2.9 mg/dL (1.8-2.4) Albumin 2.7 g/dL (3.4-5.0) TIAGO HENDERSON MD Jun 06, 2017 12:18
[2017-06-06 12:56] LABS: ALBUMIN 2.7 g/dL (3.4-5.0); DIRECT BILIRUBIN 0.8 mg/dL (0.0-0.2); TOTAL BILIRUBIN 1.6 mg/dL (0.2-1.0); TOTAL PROTEIN 7.4 g/dL (6.4-8.2)
--- NOTE | 2017-06-06 14:38 | PDOC ---
SUBJECTIVE ROS RINKU and ^^ Na Pt remains confused and unable to provide much in ROS OBJECTIVE Vital Signs Vital Signs Date Time Temp Pulse Resp B/P (MAP) Pulse Ox O2 Delivery O2 Flow Rate FiO2 06/06/17 10:48 98.2 71 22 164/82 (109) 97 Nasal Cannula 2.0 98.2 I & 0 Intake and Output 06/07/17 06:59 Intake Total 50 ml Balance 50 ml IV Total 50 ml PHYSICAL EXAM Physical Exam General Appearance: Awake not Alert Oriented x 1? In no Distress Eyes: VIsion Unchanged Conjunctiva Normal EN: No EN Drainage Mucous Memb. dry Neck: no JVD min JVP Supple no Thyromegaly CVS: S1 S2 + Murmur No Gallop No Rub no Edema Resp: no Rales no Rhonchi no Acc. Muscle use GI: BS +ve NO Bruit Non Tender Non Distended : no CVA tenderness; no Suprapubic Tenderness Assessment & Plan RINKU - suspect VMN due to Sev Cmyopahty and some intravascular vol dpeltion: Agree with IVF as ordered. Current FLuid and E-lyte status does not necessitate emergent need for Dialysis. Will re-evaluate for Dialysis in am. Poor Candidacy for Residential HD ? CKD III/ IV - underlying cannot be ruled out gene with Smallish and sclerotic kidneys - probably small vs dz as noted on head CT too ^Na - gentl Hypotnoic IVF/ PPN as ordered h/o Sev Cmyoaphty (EF reportedly 15% last year) - Ionotropes per Cardiology ( haing ^ing PVCs) Vol depletion - Genlte IVF as ordered ^ed K - now resolved WAG MEt Acidosis - ^ed Lactic acid noted- watch trend with IVF and gentle vol expansion; AbN LFTs may delay metabolism of Lactate too Anemia: start Epogen Transfuse as needed. ^ed LFTS - R/o Rhabdo HTN: Current BP meds reviewed. defer to Cardiology to optimize in setting of CHF ? pulm edema - unable to assess for AMANDA since pt unable to hold breathe (per US tech) Nutrition - PPN as ordered Discussed Plan of Care and prognosis etc. at length with Palliative ELECTRICIAN REFINERY COMMENT/RELEVANT DATA Meds Current Medications Medications (Trade) Dose Ordered Sig/Toñito Start Time Stop Time Status Last Admin Dose Admin Alprazolam (Xanax) 0.25 mg PRN Q6HRS PRN 06/03/17 23:15 06/06/17 13:47 DC Apixaban (Eliquis) 5 mg BID 06/04/17 09:00 06/04/17 16:49 DC Ascorbic Acid (Vitamin C) 500 mg TIDAFTMEAL 06/04/17 09:00 06/06/17 13:47 DC Atorvastatin Calcium (Lipitor) 20 mg HS 06/04/17 21:00 06/04/17 21:00 DC Bisacodyl (Dulcolax Supp) 10 mg PRN DAILY PRN 06/03/17 23:15 Carvedilol (Coreg) 3.125 mg BIDWMEALS 06/04/17 08:00 06/06/17 13:47 DC Darbepoetin Hernando (Aranesp) 60 mcg WEEKLYHS 06/05/17 21:00 06/05/17 20:46 60 MCG Diphenhydramine HCl (Benadryl) 25 mg PRN Q6HRS PRN 06/04/17 20:15 06/04/17 21:03 25 MG Dobutamine HCl/ Dextrose 250 ml @ 0 mls/hr CONT PRN 06/05/17 16:00 06/05/17 19:49 10.7 MLS/HR Famotidine (Pepcid) 20 mg DAILY 06/04/17 09:00 06/06/17 13:47 DC Ferrous Sulfate (Feosol) 325 mg DAILYWBKFT 06/04/17 08:00 06/06/17 13:47 DC Haloperidol Lactate (Haldol) 2.5 mg PRN Q6HRS PRN 06/04/17 10:15 06/04/17 22:06 2.5 MG Hydralazine HCl (Apresoline) 10 mg PRN Q4HRS PRN 06/04/17 10:15 06/06/17 00:38 10 MG Info (Anti-Coagulation Monitoring By Pharmacy) 1 each PRN DAILY PRN 06/04/17 08:30 06/05/17 14:38 DC 06/04/17 08:28 1 EACH Info (Do NOT chart on this placeholder) 0.1 each 1X ONCE 06/04/17 05:45 06/04/17 05:46 UNV Levofloxacin/ Dextrose 150 ml @ 100 mls/hr Q48H 06/05/17 22:00 06/05/17 22:00 DC Levofloxacin/ Dextrose (Levaquin Per Pharmacy) 1 each PRN DAILY PRN 06/03/17 20:30 06/04/17 09:13 DC Lidocaine (Lidoderm) 1 patch DAILY 06/04/17 09:00 06/06/17 08:03 1 PATCH Magnesium Hydroxide (Milk Of Magnesia) 2,400 mg PRN DAILY 06/03/17 23:15 06/06/17 13:48 DC Magnesium Sulfate/ Dextrose 50 ml @ 25 mls/hr PRN DAILY PRN 06/04/17 16:00 Morphine Sulfate 2 mg PRN Q2HR PRN 06/04/17 23:15 06/04/17 23:27 2 MG Non-Formulary Medication 113 ml QSHIFT 06/03/17 23:15 UNV Piperacillin Sod/ Tazobactam Sod (Zosyn Per Pharmacy) 1 each PRN DAILY PRN 06/03/17 20:30 06/06/17 13:47 DC Piperacillin Sod/ Tazobactam Sod 2.25 gm/Sodium Chloride 50 ml @ 100 mls/hr Q6HRS 06/04/17 06:00 06/06/17 13:47 DC 06/06/17 12:19 100 MLS/HR Piperacillin Sod/ Tazobactam Sod 3.375 gm/Sodium Chloride 50 ml @ 100 mls/hr 1X ONCE 06/03/17 21:00 06/03/17 21:29 DC 06/03/17 21:16 100 MLS/HR Polyethylene Glycol (miraLAX PACKET) 17 gm DAILY 06/04/17 09:00 06/06/17 13:47 DC Sodium Bicarbonate 50 meq/Dextrose 1,050 ml @ 75 mls/hr Q14H 06/05/17 09:00 06/05/17 19:42 DC 06/05/17 10:16 75 MLS/HR Sodium Chloride 1,000 ml @ 125 mls/hr Q8H 06/04/17 13:45 06/05/17 07:33 DC 06/05/17 04:37 125 MLS/HR Sotalol HCl (Betapace) 120 mg DAILY 06/04/17 09:00 06/04/17 16:49 DC Temazepam (Restoril) 7.5 mg PRN QHS PRN 06/03/17 23:15 06/06/17 13:47 DC Tizanidine HCl (Zanaflex) 4 mg PRN Q8HRS PRN 06/05/17 10:15 06/06/17 13:48 DC Vancomycin HCl 1 each 1X ONCE 06/05/17 23:00 06/05/17 23:00 DC Vancomycin HCl (Vanco Per Pharmacy) 1 each PRN DAILY PRN 06/03/17 23:30 06/04/17 09:04 DC 06/03/17 23:18 1 EACH Vancomycin HCl 1.75 gm/Sodium Chloride 500 ml @ 250 mls/hr 1X ONCE 06/03/17 21:00 06/03/17 22:59 DC 06/03/17 23:30 250 MLS/HR Vancomycin HCl 1 gm/Sodium Chloride 250 ml @ 250 mls/hr Q24H 06/04/17 23:30 06/04/17 23:30 DC Lab Laboratory Tests Test 06/06/17 07:50 Sodium Level 150 mmol/L (136-145) Potassium Level 4.5 mmol/L (3.5-5.1) Chloride Level 116 mmol/L (98-107) Carbon Dioxide Level 19 mmol/L (21-32) Anion Gap 15 (6-14) Blood Urea Nitrogen 49 mg/dL (8-26) Creatinine 3.1 mg/dL (0.7-1.3) Estimated GFR (Cockcroft-Gault) 24.0 Glucose Level 108 mg/dL (70-99) Calcium Level 8.3 mg/dL (8.5-10.1) Phosphorus Level 4.4 mg/dL (2.6-4.7) Magnesium Level 2.9 mg/dL (1.8-2.4) Total Bilirubin 1.6 mg/dL (0.2-1.0) Direct Bilirubin 0.8 mg/dL (0.0-0.2) Aspartate Amino Transf (AST/SGOT) 433 U/L (15-37) Alanine Aminotransferase (ALT/SGPT) 995 U/L (16-63) Alkaline Phosphatase 78 U/L (46-116) Total Protein 7.4 g/dL (6.4-8.2) Albumin 2.7 g/dL (3.4-5.0) LILA SUBRAMANIAN MD Jun 06, 2017 14:38
[2017-06-06] MEDS ORDERED: AMINO AC 3%/ELECTROLYTE/GLYCER 1,000 ML IV SCH (15:00)
[2017-06-06] MEDS ORDERED: METOPROLOL TARTRATE 5 MG/5 ML VIAL. IVP SCH (18:00)
--- NOTE | 2017-06-06 18:53 | DS ---
DATE OF DISCHARGE: 06/06/2017 CHIEF COMPLAINT: Failure to thrive, tachycardia, dysphagia. HOSPITAL COURSE: The patient is a 72-year-old -[place] gentleman who was transferred from a [facility] for rehab because of worsening mental status, dysphagia and failure to thrive. The patient was actually well known to the service from previous admission in April with a discharge to [facility] on 05/08/2017. He initially had been admitted with generalized weakness, was found in acute kidney injury, possibly medication-induced for which he was treated aggressively including a few days of dialysis. He then had been transferred to [facility] for rehab. He had been doing fairly well there for a couple of weeks and then suddenly changed mental status and physical abilities significantly with being unable to feed himself or swallow. He was therefore transferred to the [facility] for further evaluation. In the ER, he was found with acute kidney injury once again, albeit not as severe as previous admit. He also had dysphagia and weakness with shortness of breath and cough. He was therefore admitted with signs of mild CHF and renal failure to the cardiac care unit. Cardiology as well as Nephrology were consulted. The patient has a longstanding history of CHF with an EF of 15%, status post pacer placement 1-1/2 years ago. He was further evaluated by Renal Service. Although he had received dialysis during the previous hospitalization, chronic HD was not recommended. A swallow study revealed dysphagia in his pharynx and ENT evaluation was recommended. A family meeting with , daughter and her boyfriend was held on June 05 with palliative care team. The multiple medical issues including heart failure, kidney failure and mental status changes suspicious for stroke as well as worsening transaminitis attributed to CHF were discussed. Family was adamant to continue full code status and requested a second opinion, preferably with his sign erector and repairer, Dr. Zhao. On the day of discharge, his sign erector and repairer was consulted, unfortunately not available for the next couple of weeks. However, hospitalist service at [facility] was willing to transfer the patient for a second opinion and ENT eval. The patient therefore was transferred to [facility] on the evening of June 07. The family was appraised during that day multiple times of plans and happenings. He was tried briefly on dobutamine overnight prior to discharge. This, however, caused increased V-tach and was therefore abandoned. For hypernatremia, he was started on dobutamine IV, with close monitoring of his heart status. This, however was discintinued when he developed frequent arrhythmias. All medications p.o. were omitted due to n.p.o. status and switched as needed to IV. PHYSICAL EXAMINATION: Please refer to note from same day. DISCHARGE DIAGNOSIS: Multiorgan failure. DISCHARGE DISPOSITION: To [facility]. DISCHARGE CONDITION: Guarded. DISCHARGE MEDICATIONS: Please refer to transfer sheet. TIAGO HENDERSON MD DR: UR/nts JOB#: [id number] / [id number] JEANETTE
== END 2017-06-06 17:00 | disposition short-term general hospital (02) | DRG 682 ==
LOC: ER 18:26 → 2 NORTH 20:55
PROVIDERS: ADMIT Internal Medicine Hematology & Oncology; ATTEND Internal Medicine Hematology & Oncology
DX: N17.9 Acute kidney failure, unspecified (principal); I50.23 Acute on chronic systolic (congestive) heart failure; G93.40 Encephalopathy, unspecified; J18.9 Pneumonia, unspecified organism; I47.2 Ventricular tachycardia; E87.0 Hyperosmolality and hypernatremia; E87.2 Acidosis; I13.0 Hypertensive heart and chronic kidney disease with heart failure and stage 1 through stage 4 chronic kidney disease, or unspecified chronic kidney disease; I42.9 Cardiomyopathy, unspecified; I69.359 Hemiplegia and hemiparesis following cerebral infarction affecting unspecified side; J44.0 Chronic obstructive pulmonary disease with (acute) lower respiratory infection; F03.90 Unspecified dementia, unspecified severity, without behavioral disturbance, psychotic disturbance, mood disturbance, and anxiety; R13.10 Dysphagia, unspecified; I48.0 Paroxysmal atrial fibrillation; E86.0 Dehydration; D64.9 Anemia, unspecified; E78.5 Hyperlipidemia, unspecified; E87.5 Hyperkalemia; I25.10 Atherosclerotic heart disease of native coronary artery without angina pectoris; I71.2 Thoracic aortic aneurysm, without rupture; K21.9 Gastro-esophageal reflux disease without esophagitis; K72.90 Hepatic failure, unspecified without coma; N18.9 Chronic kidney disease, unspecified; R62.7 Adult failure to thrive; K59.00 Constipation, unspecified; M19.90 Unspecified osteoarthritis, unspecified site; E78.00 Pure hypercholesterolemia, unspecified; I25.2 Old myocardial infarction; Z95.810 Presence of automatic (implantable) cardiac defibrillator; Z87.440 Personal history of urinary (tract) infections
CPT/HCPCS: 36415; 36600; 51701; 70450; 71010; 76705; 76770; 80053; 80069; 80076; 81001; 82140; 82550; 82805; 83605; 83690; 83735; 84100; 84145; 84300; 84484; 84550; 85007; 85025; 85610; 87040; 87086; 87641; 93005; 96361; 96365; 96375; J0360; J0881; J1200; J1250; J1630; J1956; J2270; J2543; J3370; J7030; J7040; 92610; 99285-25